=== PATIENT | male | born 1965 | race Caucasian/White ===

== ENCOUNTER 2016-06-04 06:20 | Inpatient (IN) ==
[2016-06-04] MEDS ORDERED: Clindamycin 900 MG/50 ML 900 MG/50 ML IV.SOLN IVPB ONE (06:36)
[2016-06-04] MEDS ORDERED: Chlorhexidine Rinse 15 ML MOUTHWASH MM ONE (06:37)
[2016-06-04] MEDS ORDERED: Nitroglycerin 25 MG/250 ML INFUS..BTL IVC ONE ×2 (06:43→10:58)
[2016-06-04] MEDS ORDERED: *HR* Norepinephrine 4 MG/4 ML VIAL IVC ONE (06:45)
[2016-06-04] MEDS ORDERED: *HR* Rocuronium Bromide 50 MG/5 ML VIAL ONE (06:45)
[2016-06-04] MEDS ORDERED: *HR* Phenylephrine 10 MG/ML VIAL ONE (06:45)
[2016-06-04] MEDS ORDERED: *HR* Etomidate 20 MG/10 ML AMPUL IVP ONE (06:46)
[2016-06-04] MEDS ORDERED: Famotidine 20 MG/2 ML VIAL ONE (06:46)
[2016-06-04] MEDS ORDERED: Protamine Sulfate 250 MG/25 ML VIAL IVP ONE (06:46)
[2016-06-04] MEDS ORDERED: Tranexamic Acid 1,000 MG/10 ML VIAL ONE ×2 (06:46→10:30)
[2016-06-04] MEDS ORDERED: Albuterol 2.5 MG/3 ML NEBULIZER ONE (06:51)
[2016-06-04] MEDS ORDERED: *HR* Midazolam HCl 5 MG/5 ML VIAL IVP ONE (06:53)
[2016-06-04] MEDS ORDERED: *HR* FentaNYL (PF) 1,000 MCG/20 ML VIAL ONE (06:53)
[2016-06-04] MEDS ORDERED: Verapamil 5 MG/2 ML VIAL ONE (06:55)
[2016-06-04] MEDS ORDERED: Albuterol 2.5 MG/3 ML NEBULIZER IH ONE (06:57)
[2016-06-04] MEDS ORDERED: Metoprolol XL (24 HR) Succ 25 MG TAB.ER.24H PO ONE (07:02)
--- NOTE | 2016-06-04 07:09 | History & Physical Report ---
Date of Encounter: 06/04/16 Time of Encounter: 07:07 24 Hour HP Update - Instructions Instructions: If the History and Physical is less than 30 days old and was completed prior to A.M. admission and or procedure and has NOT been updated on calendar day of procedure please complete this update prior to performing procedure. - Update Patient reports changes in Medical Condition: No Changes in assessment/condition: No Changes in Medication: No Preop tests/diagnostics Reviewed: Yes Pre-Op MRSA Screen: Negative Surgery Remains Indicated: Yes Consent for Planned Operative Procedure(s) Verified: Yes Additions to current History and Physical: Off Plavix for 6 days. Brief chest pain last PM - Pre-Operative Checklist Preoperative Checklist Indicated: Yes Prophylactic Antibiotic Ordered: Yes Home Medications Include Beta Roxanne: Yes Beta Roxanne Taken Today (Day of Surgery): Yes Beta Roxanne Taken Yesterday (Day Prior to Surgery): Yes Is VTE Prophylaxis Indicated?: Yes
--- NOTE | 2016-06-04 07:13 | Anesthesia Evaluation PreOp ---
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 (wet macular degeneration both eyes) Other Medical History: Diabetes Type II Anesthesia History: No Prior Anesthetic Complications (Has hadvascular surgery, wrist surgery and bilateral knee scopes) Alcohol Use: none Drug use: none Medications and Allergies Amitriptyline [Elavil] 50 mg PO HS 04/21/15 [History] Aspirin 81 mg PO DAILY 04/21/15 [History] Clopidogrel [Plavix] 75 mg PO DAILY 04/21/15 [History] Gabapentin [Neurontin] 800 mg PO TID 04/21/15 [History] Glimepiride [Amaryl] 4 mg PO 0800 04/21/15 [History] Lisinopril/Hydrochlorothiazide [Zestoretic 20-12.5 mg Tablet] 1 each PO DAILY [History] Meloxicam/Irr Cntr-Irr Cmb #2 [Comfort Pac-Meloxicam Kit] 15 mg MC DAILY [History] Metoprolol [Lopressor] 50 mg PO DAILY 04/21/15 [History] Omeprazole [Prilosec] 40 mg PO DAILY 04/21/15 [History] Oxycodone HCl/Acetaminophen [Percocet 10-325 mg Tablet] 1 tab PO Q6H PRN [History] Pravastatin Sodium [Pravachol] 40 mg PO DAILY 04/21/15 [History] PredniSONE 40 mg PO DAILY #10 tablet 08/17/15 [Rx] Diclofenac Sodium [Voltaren] 100 gm TP QID PRN 05/29/16 [History] Dulaglutide [Trulicity] 1.5 mg SQ QWEEK 05/29/16 [History] Tizanidine HCl [Zanaflex] 6 mg PO TID PRN 05/29/16 [History] Triamcinolone Acet 0.1% CRM [Kenalog] 1 appl TP ONCE PRN 05/29/16 [History] Allergies Penicillins [PCN] Allergy (Verified 08/17/15 07:43) Anaphylaxis - Meds/Allergy Pre-op Review Medications Reviewed: Yes Allergies Reviewed: Yes Beta Blockers on Current Med List: Yes Anesthesia Results - Labs Laboratory Tests 05/28/16 05/28/16 16:54 16:54 WBC 9.7 Hgb 13.1 Hct 38.4 Plt Count 235 Sodium 136 Potassium 4.5 Carbon Dioxide 26 BUN 19 - Imaging EKG: report reviewed Chest x-ray: report reviewed Additional studies: Cath shows severe 3 vessel disease. Cath shows EF 50% with mild and wall motion abnormalities Anesthesia Exam Selected Entries 06/04/16 06:43 Temperature 98.7 F Pulse Rate 86 Respiratory Rate 18 Blood Pressure 145/82 O2 Sat by Pulse Oximetry 98 Height: 69in Weight: 211lbs NPO (# of Hours): 8 Pain Scale: 0 Pain Scale Used: Numeric (1 - 10) - HEENT Pupil (Motor): EOMI Mallampati: I Teeth: Edentulous Oral Opening: Less than or equal to 3 - JUNIOR SYSTEMS ENGINEER LOC: Oriented JUNIOR SYSTEMS ENGINEER Motor: Normal RUE, Normal LUE, Normal RLE, Normal LLE, Normal Face JUNIOR SYSTEMS ENGINEER Sensory: Normal: RUE, LUE, RLE, LLE, Face - Cardiac Rhythm: Regular Murmur: None - Pulmonary Breath Sounds: bilateral Clear Respiratory Effort: Symmetrical - Additional Findings patient reports he can see. Eye exam not done but patient able to see consent form to sign. Anesthesia Assess/Plan ASA Score: 4 Modified Aspen Scale for Level of Consciousness: Cooperative, oriented, and tranquil Anesthetic Plan: General Autologous Blood: No Monitoring Plan: Standard Monitors, A-Line, PAC Recovery Plan: ICU (discussed risks of GA, lines and blood. Potential for ASHLEY and risks discussed. Questions answered. Agrees to proceed.)
[2016-06-04] MEDS ORDERED: Lidocaine 2% Syringe 100 MG/5 ML IV ONE (07:33)
[2016-06-04] MEDS ORDERED: Clindamycin 600 MG/50 ML IV.SOLN IVPB ONE (07:33)
[2016-06-04] MEDS ORDERED: Heparin 1,000 UNITS/500 mL NS 1,000 UNIT/500 ML IV.SOLN IVC ONE (07:33)
[2016-06-04] MEDS ORDERED: Albumin Human 25% 25 GM/100 ML IV.SOLN IV ONE (07:33)
[2016-06-04] MEDS ORDERED: Sodium Bicarbonate 50 MEQ/50 ML VIAL IVC ONE (07:33)
[2016-06-04] MEDS ORDERED: Mannitol 25% vial 12.5 GM/50 ML VIAL IVP ONE (07:33)
[2016-06-04] MEDS ORDERED: *HR* Phenylephrine 10 MG/ML VIAL IVC ONE (07:33)
[2016-06-04] MEDS ORDERED: D5% in Water 250 ML IV BAG IV ONE (07:33)
[2016-06-04] MEDS ORDERED: *HR* Heparin 10,000 UNIT/10 ML VIAL IV ONE (07:33)
[2016-06-04] MEDS ORDERED: *HR* Magnesium Sulfate 2 GM/50 ML PIGGYBACK IVPB ONE (07:33)
--- NOTE | 2016-06-04 08:47 | Anesthesia Procedures ---
Date of Encounter: 06/04/16 Time of Encounter: 07:55 Procedures: Anesthesia - Arterial Line Consent obtained: written consent Time out performed: Yes Sedation: Versed (mg): 2 Sedation: Fentanyl (mcg): 100 Supplemental Oxygen via Nasal Cannula (L/min): 2 Local Anesthetic: Lidocaine 1% Amount of Anesthetic used (mls): 1 Size (Gauge): 20 Length (inches): 5 Technique Used: sterile prep, guide wire technique, direct puncture technique Post-Procedure: line taped into place Patient tolerated procedure: well, no complications Complications: none Site: Radial L (attempt x 1) - Central Line Placement Right IJ Consent obtained: written consent Time out performed: Yes Patient placed on monitor/pulse ox: Yes prep: mask, gown, gloves Central line prep: Chlorhexidine scrub Ultrasound used for placement: Yes Technique: Seldinger Lumen Inserted: Introducer Post procedure: sutured in place, good blood return, all ports aspirated, flushed, capped, sterile dressing applied Patient tolerated procedure: well, no complications (attempt x 1, swan placed without issues, no arrythmias. Wedge at approx. 64cm)
[2016-06-04] MEDS: Ringers Solution, Lactated 1,000 ML IVC SCH ×2 (10:43→10:45)
[2016-06-04] MEDS ORDERED: Albumin Human 5% 50.0 GM/1,000 ML VIAL ONE (10:57)
[2016-06-04] MEDS ORDERED: Insulin Regular, Human 100 UNIT/ML IV PRN (12:01)
[2016-06-04] MEDS ORDERED: Norepinephrine 4 MG in D5% in Water 250 ML IVC SCH (12:01)
[2016-06-04] MEDS ORDERED: tiZANidine 4 MG TABLET PO PRN (12:01)
[2016-06-04] MEDS ORDERED: DICLOFENAC GEL TP PRN (12:01)
[2016-06-04] MEDS ORDERED: Ondansetron 4 MG/2 ML VIAL IVP PRN (12:01)
[2016-06-04] MEDS ORDERED: *HR* Dextrose 50 % in Water (Syg) 50 ML SYRINGE IVP PRN ×2 (12:01→14:14)
[2016-06-04] MEDS ORDERED: *HR* Promethazine 25 MG/ML VIAL IVP PRN (12:01)
[2016-06-04] MEDS ORDERED: Potassium Chloride 40 MEQ/200 ML BAG IVPB PRN (12:01)
[2016-06-04] MEDS ORDERED: Triamcinolone Acet 0.1% CRM 15 GM TUBE TP PRN (12:01)
[2016-06-04] MEDS ORDERED: Naloxone 0.4 MG/ML INJ IVP PRN (12:01)
[2016-06-04] MEDS ORDERED: niCARdipine 20 MG/200 ML MLS IVC SCH (12:01)
[2016-06-04 12:05] LABS: INR 1.5; Prothrombin Time 16.6 Seconds (9.4-12.1)
[2016-06-04] MEDS ORDERED: niCARdipine 40 MG/200 ML MLS IVC ONE (12:05)
[2016-06-04 12:07] LABS: ABG Base Excess 1.8 mEq/L (-2.0 to 3.0); ABG HCO3 29.1 mEQ/L (21-27); ABG Oxygen Saturation 98 % (95-98); ABG PCO2 62 mmHg (35-45); ABG PO2 111 mmHg (85-104); BUN/Creatinine Ratio 16 (6-26); Basophils % 0.1 %; Blood Urea Nitrogen 10 mg/dL (8-26); Carbon Dioxide 18 mEq/L (19-29); Chloride 120 mEq/L (98-109); Eosinophils % 0.4 %; Glucose 101 mg/dL (70-99); Hematocrit 23.3 % (37.5-50.1); Hemoglobin 7.6 g/dL (12.9-16.9); Immature Granulocytes % 0.4 % (0-4); Lymphocytes # 1.4 K/mcL (0.6-4.6); Lymphocytes % 14.5 %; Mean Corpuscular HGB Conc 32.6 g/dL (31.6-35.5); Mean Corpuscular Hemoglobin 29.7 pg (28.0-33.3); Mean Platelet Volume 8.8 fL (9.4-12.4); Monocytes # 0.5 K/mcL (0.0-1.3); Osmolality,Calculated 313 (280-300); Platelet Count 105 K/mcL (140-400); Potassium 2.7 mEq/L (3.5-4.5); Red Blood Count 2.56 M/mcL (4.19-5.50); Red Cell Distribution Width 12.4 % (11.5-14.5); Segmented Neutrophils % 79.6 %; Sodium 152 mEq/L (136-145); eGFR For African Americans > 60 (> 60); eGFR For Non-African Americans > 60 (> 60)
[2016-06-04 12:10] LABS: Calcium 5.9 mg/dL (8.6-10.8)
[2016-06-04 12:12] LABS: ABG PH 7.28 pH Units (7.32-7.45); Activated Partial Thrombo Time > 360.0 Seconds (26.0-36.0); Neutrophils # 7.5 K/mcL (1.6-8.9)
--- NOTE | 2016-06-04 12:12 | Operative Note ---
Date of procedure: 06/04/16 Procedure in Detail: Preoperative diagnosis. Coronary artery disease. Postoperative diagnosis. Same. Procedures. Coronary artery bypass grafting 2 with the left internal mammary artery to the LAD and the aorta to the obtuse marginal branch of the circumflex with saphenous vein. Surgeon. Dr. Moe Casillas. Asst. Flavio Schofield. Anesthesia. Dr. Ike Whittington. Patient is a 50-year-old gentleman who does have a history of smoking and smoked a cigarette on the way to the hospital today. He was seen last week with coronary artery disease and was referred for surgery. He was on Plavix and this was stopped for 6 days. We did not want to wait longer as he did have a tight 99% circumflex lesion. He was brought to the OR where he underwent a general anesthetic and was prepped and draped in standard fashion. The right greater saphenous vein was harvested from the right knee to the right mid thigh. This was done with 2 small incisions using the scope. These incisions were subsequently closed using a deep layer of 0 Vicryl and a 2-0 Vicryl subcuticular stitch. Standard median sternotomy was performed. Mammary retractor was inserted and the left internal mammary artery was harvested in standard fashion using the Bovie electrocoagulation. It was an adequate vessel with adequate pulse and flow. Following this, the mammary retractor was removed and the standard sternal 4th grade teacher was inserted. Pericardium was opened in the midline and suspended with 2-0 silk stay sutures. Double purse string of 20 Surgilon was placed in the aorta for the aortic cannulation site. A pursestring of 20 Surgilon was placed in the right atrial appendage for venous uptake. The patient was heparinized. The aorta was cannulated without difficulty. Two-stage venous uptake cannula was inserted through the right atrial appendage without difficulty. Purstring of 3-0 silk was placed in the aorta and the cardioplegia needle was inserted through here. This was also uses of active and passive aortic vent. The patient was placed on cardiopulmonary bypass and cooled to 35.5. At this point the aorta was crossclamped. A liter of antegrade cardioplegia was given. Topical cooling with iced saline slush was also done. Attention was first turned to the circumflex. The obtuse marginal branch was dissected free with the Ponce blade and opened with a Ponce blade and the Pierce scissors. This had illuminable 1/2 mm and it was intramyocardial. Proximally it had severe diffuse disease. A standard end-to -side anastomosis was constructed using the saphenous vein and a 7-0 Prolene. When this was completed, an additional dose of antegrade cardioplegia was given along with topical cooling. Mammary pedicle was harvested. Tonsil clamp was placed distally and was divided with Metzenbaum scissors. This line was tied with 2-0 silk suture. The proximal end was trimmed and brought into the wound. The LAD was dissected free with the Ponce blade and opened with the Ponce blade and the Pierce scissors. This had a lumen of 1/2 mm with mild to moderate diffuse disease. A standard end-to-side anastomosis was constructed using the mammary artery and a 7-0 Prolene. When this was completed. Bulldog clamp was removed. There was some oozing from the lateral side of the anastomosis. This was controlled with FloSeal and an additional suture of 7-0 Prolene. After this the hemostasis was good. Pedicles tacked the surface of heart using 2 interrupted 5-0 silk sutures. Cross-clamp was removed and rewarming was begun. Total cross-clamp time was 36 minutes. Side-biting clamp was placed on the aorta and the cardioplegia needle was removed. A hole was made in the aorta using the Ponce blade and the 4.0 mm aortic punch. A standard proximal anastomosis was constructed using the saphenous vein and a 5-0 Prolene. When this is completed, the side-biting clamp was removed. The graft was de-aired using #25-gauge needle and the previously placed bulldog clamp was removed. Distal anastomoses were inspected and found to be hemostatic. The proximal anastomosis was marked with a marker from a Ray-Naeem sponge. A pair of ventricular pacing wires were left. A total of 3 chest tubes were left. A 32 angle chest tube in the left pleural space. A 32 right angle chest tube in the pericardial well. A 40 mediastinal chest tube. The patient was weaned from bypass requiring no pressors for support. He was decannulated and protamine was given. Hemostasis was good and the hemodynamics were good. Pericardium was left open. Sternum was closed with #7 sternal wires in simple [id number] fashion. Fascia was run with #1 Vicryl. Subcutaneous tissues with a 2-0 Vicryl. Skin was closed with a 3-0 Vicryl subcuticular stitch. The patient tolerated the procedure well and was returned intensive care unit in satisfactory and stable condition. Total bypass time 60 minutes. Total cross-clamp time 36 minutes. He been cooled to 35.5.
[2016-06-04 12:14] LABS: Heparin anti-factor XA UFH 0.67 IU/mL (0.30-0.70)
[2016-06-04 12:42] LABS: Basophils % 0.2 %; Eosinophils % 0.2 %; Hematocrit 28.4 % (37.5-50.1); Immature Granulocytes % 0.6 % (0-4); Lymphocytes # 1.5 K/mcL (0.6-4.6); Lymphocytes % 12.7 %; Mean Corpuscular HGB Conc 32.7 g/dL (31.6-35.5); Mean Corpuscular Hemoglobin 29.6 pg (28.0-33.3); Mean Corpuscular Volume 90.4 fL (83.0-100.0); Mean Platelet Volume 8.7 fL (9.4-12.4); Monocytes # 0.6 K/mcL (0.0-1.3); Monocytes % 5.5 %; Neutrophils # 9.3 K/mcL (1.6-8.9); Platelet Count 124 K/mcL (140-400); Red Blood Count 3.14 M/mcL (4.19-5.50); Red Cell Distribution Width 12.5 % (11.5-14.5); Segmented Neutrophils % 80.8 %
[2016-06-04] MEDS: *HR* OxyCODONE/APAP 10/325 TABLET PO PRN ×3 (12:42→23:48)
[2016-06-04] MEDS: Nitroglycerin 25 MG/250 ML INFUS..BTL IVC SCH (12:44)
[2016-06-04] MEDS: 0.9 % Sodium Chloride 1,000 ML IVC SCH (12:44)
[2016-06-04 12:52] LABS: Hemoglobin 9.3 g/dL (12.9-16.9)
[2016-06-04 12:53] LABS: BUN/Creatinine Ratio 15 (6-26); Blood Urea Nitrogen 13 mg/dL (8-26); Calcium 8.5 mg/dL (8.6-10.8); Carbon Dioxide 24 mEq/L (19-29); Chloride 108 mEq/L (98-109); Glucose 194 mg/dL (70-99); Osmolality,Calculated 295 (280-300); Potassium 4.3 mEq/L (3.5-4.5); eGFR For African Americans > 60 (> 60); eGFR For Non-African Americans > 60 (> 60)
[2016-06-04 12:56] LABS: Sodium 140 mEq/L (136-145)
[2016-06-04 13:06] LABS: INR 1.3
[2016-06-04 13:09] LABS: Activated Partial Thrombo Time 39.2 Seconds (26.0-36.0)
[2016-06-04 13:11] LABS: Prothrombin Time 13.8 Seconds (9.4-12.1)
[2016-06-04] MEDS: *HR* HYDROmorphone 2 MG/ML SYRINGE IVP PRN ×2 (13:51→21:30)
[2016-06-04] MEDS ORDERED: Insulin Human Regular 100 UNIT in 0.9 % Sodium Chloride 100 ML IVC SCH (14:15)
[2016-06-04 16:32] LABS: Basophils % 0.2 %; Eosinophils # 0.1 K/mcL (0.0-0.6); Eosinophils % 0.4 %; Hematocrit 30.8 % (37.5-50.1); Hemoglobin 10.3 g/dL (12.9-16.9); Immature Granulocytes % 0.7 % (0-4); Lymphocytes # 0.7 K/mcL (0.6-4.6); Lymphocytes % 5.5 %; Mean Corpuscular HGB Conc 33.4 g/dL (31.6-35.5); Mean Corpuscular Hemoglobin 29.9 pg (28.0-33.3); Mean Corpuscular Volume 89.3 fL (83.0-100.0); Mean Platelet Volume 9.2 fL (9.4-12.4); Neutrophils # 10.8 K/mcL (1.6-8.9); Platelet Count 174 K/mcL (140-400); Red Blood Count 3.45 M/mcL (4.19-5.50); Red Cell Distribution Width 12.6 % (11.5-14.5); Segmented Neutrophils % 85.2 %
[2016-06-04 16:34] LABS: ABG Base Excess 1.4 mEq/L (-2.0 to 3.0); ABG HCO3 26.6 mEQ/L (21-27); ABG Oxygen Saturation 99 % (95-98); ABG PCO2 44 mmHg (35-45); ABG PH 7.39 pH Units (7.32-7.45); ABG PO2 120 mmHg (85-104)
[2016-06-04 16:37] LABS: Blood Gas FiO2 40 %
[2016-06-04 16:39] LABS: INR 1.2
[2016-06-04 16:42] LABS: Activated Partial Thrombo Time 73.5 Seconds (26.0-36.0)
[2016-06-04 16:45] LABS: BUN/Creatinine Ratio 14 (6-26); Blood Urea Nitrogen 16 mg/dL (8-26); Calcium 8.5 mg/dL (8.6-10.8); Carbon Dioxide 23 mEq/L (19-29); Chloride 110 mEq/L (98-109); Glucose 186 mg/dL (70-99); Osmolality,Calculated 296 (280-300); Potassium 4.7 mEq/L (3.5-4.5); Sodium 140 mEq/L (136-145); eGFR For African Americans > 60 (> 60); eGFR For Non-African Americans > 60 (> 60)
[2016-06-04] MEDS: Gabapentin 400 MG CAPSULE PO SCH ×2 (17:17→21:45)
[2016-06-04] MEDS: Clindamycin 900 MG/50 ML 900 MG/50 ML IV.SOLN IVPB SCH (17:17)
[2016-06-04 20:12] LABS: ABG Base Excess 0.8 mEq/L (-2.0 to 3.0); ABG HCO3 25.3 mEQ/L (21-27); ABG Oxygen Saturation 97 % (95-98); ABG PCO2 39 mmHg (35-45); ABG PO2 92 mmHg (85-104); ABG TCO2 26.5 mEq/L (20-26)
[2016-06-04 20:18] LABS: ABG PH 7.42 pH Units (7.32-7.45); Blood Gas FiO2 30 %; Blood Gas PEEP 5 cm H2O; Blood Gas Respiration Rate 12; Blood Gas VT 800 cc
[2016-06-04] MEDS ORDERED: Aspirin 81 MG TAB.CHEW PO SCH (21:00)
[2016-06-04 21:28] LABS: ABG Base Excess 1.3 mEq/L (-2.0 to 3.0); ABG HCO3 25.9 mEQ/L (21-27); ABG Oxygen Saturation 96 % (95-98); ABG PCO2 40 mmHg (35-45); ABG PO2 82 mmHg (85-104); ABG TCO2 27.1 mEq/L (20-26); Blood Gas FiO2 30 %
[2016-06-04 21:29] LABS: ABG PH 7.42 pH Units (7.32-7.45); Blood Gas PEEP 5 cm H2O
[2016-06-04 22:47] LABS: ABG Base Excess -1.2 mEq/L (-2.0 to 3.0); ABG HCO3 24.3 mEQ/L (21-27); ABG Oxygen Saturation 92 % (95-98); ABG PCO2 43 mmHg (35-45); ABG PO2 66 mmHg (85-104); ABG TCO2 25.6 mEq/L (20-26)
[2016-06-04 22:48] LABS: Blood Gas FiO2 28 %
[2016-06-04 22:49] LABS: ABG PH 7.36 pH Units (7.32-7.45)
[2016-06-04] MEDS: Chlorhexidine Rinse 15 ML MOUTHWASH MM SCH (23:45)
[2016-06-05] MEDS: Clindamycin 900 MG/50 ML 900 MG/50 ML IV.SOLN IVPB SCH (00:06)
[2016-06-05] MEDS: 0.9 % Sodium Chloride 1,000 ML IVC SCH (02:05)
[2016-06-05] MEDS: *HR* HYDROmorphone 2 MG/ML SYRINGE IVP PRN ×3 (02:58→23:59)
[2016-06-05 04:16] LABS: Basophils % 0.2 %; Eosinophils % 0.1 %; Hematocrit 29.6 % (37.5-50.1); Hemoglobin 9.7 g/dL (12.9-16.9); Immature Granulocytes % 0.4 % (0-4); Lymphocytes # 0.7 K/mcL (0.6-4.6); Lymphocytes % 5.8 %; Mean Corpuscular HGB Conc 32.8 g/dL (31.6-35.5); Mean Corpuscular Hemoglobin 29.6 pg (28.0-33.3); Mean Corpuscular Volume 90.2 fL (83.0-100.0); Mean Platelet Volume 9.3 fL (9.4-12.4); Monocytes % 8.3 %; Neutrophils # 10.7 K/mcL (1.6-8.9); Platelet Count 170 K/mcL (140-400); Red Blood Count 3.28 M/mcL (4.19-5.50); Red Cell Distribution Width 12.7 % (11.5-14.5); Segmented Neutrophils % 85.2 %
[2016-06-05 04:18] LABS: Monocytes # 1.1 K/mcL (0.0-1.3)
[2016-06-05 04:28] LABS: BUN/Creatinine Ratio 18 (6-26); Blood Urea Nitrogen 21 mg/dL (8-26); Calcium 8.4 mg/dL (8.6-10.8); Carbon Dioxide 22 mEq/L (19-29); Chloride 109 mEq/L (98-109); Glucose 145 mg/dL (70-99); INR 1.3; Magnesium 2.3 mg/dL (1.6-2.6); Osmolality,Calculated 290 (280-300); Potassium 4.7 mEq/L (3.5-4.5); eGFR For African Americans > 60 (> 60); eGFR For Non-African Americans > 60 (> 60)
[2016-06-05 04:33] LABS: Activated Partial Thrombo Time 34.8 Seconds (26.0-36.0)
[2016-06-05 04:35] LABS: Prothrombin Time 14.1 Seconds (9.4-12.1)
[2016-06-05 04:39] LABS: Sodium 137 mEq/L (136-145)
[2016-06-05] MEDS: *HR* OxyCODONE/APAP 10/325 TABLET PO PRN ×3 (06:07→21:05)
--- NOTE | 2016-06-05 07:21 | Cardiothoracic Progress Note ---
Date of Encounter: 06/05/16 Time of Encounter: 07:19 - Assessment and plan (1) Coronary artery disease Current Visit: No Status: Acute The assessment and plan as outlined above was discussed with the patient and/or family members who expressed understanding and agreement. All questions were answered. The patient is doing well. We will leave the chest tubes is a drained over 200 mL in the last shift. We will transfer him to the floor. We will discontinue his [place]oselyn catheter, arterial line, IV fluids and Mullins catheter. - Subjective Interval history: The patient complains of postoperative pain. He states that he feels sore all over. Vital Signs, Last 4 Hours Pulse Resp BP Pulse Ox 06/05/16 07:00 100 26 144/65 95 06/05/16 06:00 98 28 138/67 91 L 06/05/16 05:00 96 24 109/54 94 L 06/05/16 04:35 16 105/62 92 L 06/05/16 04:00 92 22 111/62 94 L Oxgyen Flow Rate Oxygen Flow Rate (LPM) 2.5 Clinical Data, last 8 Hours Output, Chest Tube Drainage 4 Amount [Mediastinal #3] Output, Chest Tube Drainage 12 Amount [Mediastinal #3] Output, Chest Tube Drainage 5 Amount [Mediastinal #3] Output, Chest Tube Drainage 0 Amount [Mediastinal #3] Output, Chest Tube Drainage 4 Amount [Mediastinal #3] Output, Chest Tube Drainage 16 Amount [Mediastinal #3] Output, Chest Tube Drainage 5 Amount [Mediastinal #3] Output, Chest Tube Drainage 5 Amount [Mediastinal #3] Output, Chest Tube Drainage 0 Amount [Mediastinal #2] Output, Chest Tube Drainage 0 Amount [Mediastinal #2] Output, Chest Tube Drainage 0 Amount [Mediastinal #2] Output, Chest Tube Drainage 10 Amount [Mediastinal #2] Output, Chest Tube Drainage 10 Amount [Mediastinal #2] Output, Chest Tube Drainage 30 Amount [Mediastinal #2] Output, Chest Tube Drainage 10 Amount [Mediastinal #2] Output, Chest Tube Drainage 20 Amount [Mediastinal #2] Output, Chest Tube Drainage 10 Amount [Mediastinal #1] Output, Chest Tube Drainage 20 Amount [Mediastinal #1] Output, Chest Tube Drainage 20 Amount [Mediastinal #1] Output, Chest Tube Drainage 0 Amount [Mediastinal #1] Output, Chest Tube Drainage 10 Amount [Mediastinal #1] Output, Chest Tube Drainage 20 Amount [Mediastinal #1] Output, Chest Tube Drainage 0 Amount [Mediastinal #1] Output, Chest Tube Drainage 10 Amount [Mediastinal #1] Weight 06/03/16 06/04/16 06/05/16 23:59 23:59 23:59 Weight 97.522 kg Lungs are clear to percussion and auscultation. Heart is in a normal sinus rhythm. All incisions are healing well without signs of infection and the sternum is stable. - Labs 06/05/16 04:00 06/05/16 04:00 Lab Results, Last 24 hours 06/04/16 06/04/16 06/04/16 11:30 11:30 11:30 WBC 9.4 Hgb 7.6 L D Hct 23.3 L Plt Count 105 L D INR 1.5 APTT > 360.0 H* D Sodium 152 H Potassium 2.7 L Chloride 120 H Carbon Dioxide 18 L BUN 10 Creatinine 0.61 L Glucose 101 H Calcium 5.9 L* Magnesium 2.0 06/04/16 06/04/16 06/04/16 12:35 12:35 12:35 WBC 11.5 H Hgb 9.3 L D Hct 28.4 L Plt Count 124 L INR 1.3 APTT 39.2 H D Sodium 140 D Potassium 4.3 D Chloride 108 Carbon Dioxide 24 BUN 13 Creatinine 0.87 Glucose 194 H Calcium 8.5 L D Magnesium 06/04/16 06/04/16 06/04/16 16:27 16:27 16:27 WBC 12.7 H Hgb 10.3 L Hct 30.8 L Plt Count 174 INR 1.2 APTT 73.5 H D Sodium 140 Potassium 4.7 H Chloride 110 H Carbon Dioxide 23 BUN 16 Creatinine 1.16 Glucose 186 H Calcium 8.5 L Magnesium 06/05/16 06/05/16 06/05/16 04:00 04:00 04:00 WBC 12.6 H Hgb 9.7 L Hct 29.6 L Plt Count 170 INR 1.3 APTT 34.8 D Sodium 137 Potassium 4.7 H Chloride 109 Carbon Dioxide 22 BUN 21 Creatinine 1.17 Glucose 145 H Calcium 8.4 L Magnesium 2.3 - VTE Documentation of Mechanical Device: Intermittent pneumatic compression device Consult Discharge Plan - Plan Referrals: Micheal Silver MD [Primary Care Provider] -
[2016-06-05] MEDS ORDERED: *HR* Glimepiride 2 MG TABLET PO SCH (07:30)
[2016-06-05] MEDS ORDERED: Dextrose Gel 15 GM PO PRN ×4 (07:32→11:40)
[2016-06-05] MEDS ORDERED: *HR* Dextrose 50 % in Water (Syg) 50 ML SYRINGE IVP PRN ×4 (07:32→11:40)
[2016-06-05] MEDS ORDERED: D5% in Water 1,000 ML IV PRN ×2 (07:32→11:40)
[2016-06-05] MEDS: Chlorhexidine Rinse 15 ML MOUTHWASH MM SCH (08:05)
[2016-06-05] MEDS: Gabapentin 400 MG CAPSULE PO SCH ×3 (08:08→21:04)
--- NOTE | 2016-06-05 08:16 | Anesthesia Evaluation Post Op ---
Date of Encounter: 06/05/16 Time of Encounter: 08:14 - Vital Signs Vital Signs: Selected Entries 06/05/16 07:00 06/05/16 07:54 Temperature 98.6 F Pulse Rate 100 Respiratory Rate 26 Blood Pressure 144/65 O2 Sat by Pulse Oximetry 95 - Lungs Lungs: Clear Ascult./Percussion - Airway Airway: Non-obstructed - Cardiovascular Regular Rate - Mental Status Mental Status: Alert & Oriented, Answers Appropriately - Pain Pain Scale: 3 Pain Scale used: Numeric (1 - 10) - Nausea Vomiting Nausea Vomiting: Not Present - Hydration Hydration: Tolerates oral liquids (Patient POD#1 from CABG. No appaarent anesthestic issues. Lines and howe to be discontinued today. Transfer per Dr Casillas's discretion.), Howe catheter
--- NOTE | 2016-06-05 09:58 | Electrocardiograph Report ---
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
[2016-06-05 11:07] LABS: ABG Base Excess 0.7 mEq/L (-2.0 to 3.0); ABG Glucose 203 mg/dL (60-95); ABG Hematocrit 36 % (35-51); ABG Ionized Calcium 1.23 mmol/L (1.15-1.35); ABG Oxygen Saturation 100 % (95-98); ABG PCO2 57 mmHg (35-45); ABG PO2 230 mmHg (85-104); ABG TCO2 29.7 mEq/L (20-26)
[2016-06-05 11:09] LABS: ABG Base Excess -4.9 mEq/L (-2.0 to 3.0); ABG Glucose 136 mg/dL (60-95); ABG HCO3 21.2 mEQ/L (21-27); ABG Hematocrit 24 % (35-51); ABG Ionized Calcium 0.83 mmol/L (1.15-1.35); ABG Oxygen Saturation 97 % (95-98); ABG PCO2 43 mmHg (35-45); ABG PO2 96 mmHg (85-104); ABG TCO2 22.5 mEq/L (20-26)
[2016-06-05 11:09] LABS: ABG Base Excess -0.2 mEq/L (-2.0 to 3.0); ABG Glucose 202 mg/dL (60-95); ABG HCO3 26.2 mEQ/L (21-27); ABG Hematocrit 22 % (35-51); ABG Ionized Calcium 0.99 mmol/L (1.15-1.35); ABG Oxygen Saturation 100 % (95-98); ABG PCO2 52 mmHg (35-45); ABG PH 7.31 pH Units (7.32-7.45); ABG PO2 229 mmHg (85-104); ABG TCO2 27.8 mEq/L (20-26)
[2016-06-05 11:10] LABS: ABG Base Excess 1.4 mEq/L (-2.0 to 3.0); ABG Glucose 243 mg/dL (60-95); ABG HCO3 26.6 mEQ/L (21-27); ABG Hematocrit 24 % (35-51); ABG Ionized Calcium 0.94 mmol/L (1.15-1.35); ABG Oxygen Saturation 100 % (95-98); ABG PCO2 44 mmHg (35-45); ABG PH 7.39 pH Units (7.32-7.45); ABG PO2 252 mmHg (85-104)
[2016-06-05 11:11] LABS: ABG Base Excess 1.3 mEq/L (-2.0 to 3.0); ABG Glucose 178 mg/dL (60-95); ABG HCO3 26.6 mEQ/L (21-27); ABG Hematocrit 26 % (35-51); ABG Ionized Calcium 1.03 mmol/L (1.15-1.35); ABG Oxygen Saturation 99 % (95-98); ABG PCO2 45 mmHg (35-45); ABG PH 7.38 pH Units (7.32-7.45); ABG PO2 144 mmHg (85-104)
[2016-06-05] MEDS ORDERED: Insulin LISPRO 300 UNITS/3 ML VIAL SQ SCH ×2 (11:30→21:00)
[2016-06-05] MEDS ORDERED: *HR* Promethazine 25 MG/ML VIAL IVP PRN (11:40)
[2016-06-05] MEDS ORDERED: Ondansetron 4 MG/2 ML VIAL IVP PRN (11:40)
[2016-06-05] MEDS ORDERED: tiZANidine 4 MG TABLET PO PRN (11:40)
[2016-06-05] MEDS ORDERED: Insulin Regular, Human 100 UNIT/ML IV PRN (11:40)
[2016-06-05] MEDS ORDERED: DICLOFENAC GEL TP PRN (11:40)
[2016-06-05] MEDS ORDERED: Naloxone 0.4 MG/ML INJ IVP PRN (11:40)
[2016-06-05] MEDS: Nitroglycerin 25 MG/250 ML INFUS..BTL IVC SCH (11:55)
[2016-06-05] MEDS: *HR* Heparin 5,000 UNIT/ML VIAL SQ SCH (17:40)
[2016-06-05] MEDS: Insulin LISPRO 300 UNITS/3 ML VIAL SQ SCH ×2 (17:40→21:33)
[2016-06-05] MEDS: *HR* Glimepiride 2 MG TABLET PO SCH (17:40)
[2016-06-05] MEDS: Aspirin 81 MG TAB.CHEW PO SCH (21:05)
[2016-06-05] MEDS: Insulin DETEMIR 100 UNIT/ML X5UNITS SQ SCH (21:56)
[2016-06-06] MEDS: *HR* Heparin 5,000 UNIT/ML VIAL SQ SCH ×2 (04:34→18:18)
[2016-06-06] MEDS: *HR* OxyCODONE/APAP 10/325 TABLET PO PRN ×3 (04:34→18:17)
[2016-06-06 05:26] LABS: Basophils % 0.1 %; Hematocrit 28.9 % (37.5-50.1); Hemoglobin 9.6 g/dL (12.9-16.9); Immature Granulocytes % 0.8 % (0-4); Lymphocytes # 0.7 K/mcL (0.6-4.6); Lymphocytes % 4.5 %; Mean Corpuscular HGB Conc 33.2 g/dL (31.6-35.5); Mean Corpuscular Hemoglobin 30.2 pg (28.0-33.3); Mean Corpuscular Volume 90.9 fL (83.0-100.0); Mean Platelet Volume 10.1 fL (9.4-12.4); Monocytes # 1.2 K/mcL (0.0-1.3); Monocytes % 7.4 %; Neutrophils # 13.8 K/mcL (1.6-8.9); Platelet Count 185 K/mcL (140-400); Red Blood Count 3.18 M/mcL (4.19-5.50); Red Cell Distribution Width 12.8 % (11.5-14.5); Segmented Neutrophils % 87.2 %
[2016-06-06] MEDS: Gabapentin 400 MG CAPSULE PO SCH ×3 (08:37→21:42)
[2016-06-06] MEDS: Insulin LISPRO 300 UNITS/3 ML VIAL SQ SCH ×4 (08:38→21:43)
[2016-06-06] MEDS: *HR* HYDROmorphone 2 MG/ML SYRINGE IVP PRN (08:39)
[2016-06-06] MEDS: *HR* Glimepiride 2 MG TABLET PO SCH ×2 (08:40→15:47)
--- NOTE | 2016-06-06 10:01 | Cardiothoracic Progress Note ---
Date of Encounter: 06/06/16 Time of Encounter: 09:59 - Assessment and plan (1) Coronary artery disease Current Visit: No Status: Acute The patient is recovering well from his CABG2. He remains him in diameter stable and has no complaints. The chest tubes had minimal drainage were removed this morning. He will begin ambulating in the hallways later today. The assessment and plan as outlined above was discussed with the patient and/or family members who expressed understanding and agreement. All questions were answered. Qualifiers: Coronary Disease-Associated Artery/Lesion type: [place] artery [place] vs. transplanted heart: [place] heart Associated angina: with stable angina Qualified Code(s): I25.118 - Atherosclerotic heart disease of [place] coronary artery with other forms of angina pectoris - Subjective Procedure(s) Performed: POD#2 S/P CABG2 Interval history: The patient is sitting comfortably in a chair at the bedside. He is eating breakfast and has no complaints. Vital Signs, Last 4 Hours Temp Pulse Resp BP Pulse Ox 06/06/16 07:41 98.8 F 105 40 118/81 94 L Oxgyen Flow Rate Oxygen Flow Rate (LPM) 3 Clinical Data, last 8 Hours Output, Chest Tube Drainage 0 Amount [Mediastinal #3] Output, Chest Tube Drainage 40 Amount [Mediastinal #3] Output, Chest Tube Drainage 0 Amount [Mediastinal #2] Output, Chest Tube Drainage 20 Amount [Mediastinal #2] Output, Chest Tube Drainage 10 Amount [Mediastinal #1] Output, Chest Tube Drainage 10 Amount [Mediastinal #1] Output, Urine Amount 450 Weight 06/04/16 06/05/16 06/06/16 23:59 23:59 23:59 Weight 97.522 kg 98.9 kg - Physical Examination General: Conversant, No Apparent Distress Neck: No JVD, Normal carotid pulses Cardiac: Reg Rate and Rhythm, Normal S1 and S2, No Murmur Incision: No signs of infection, Dry/intact dressing Sternum: Stable Chest tubes: Minimal drainage Pacing Wires: In place Lungs: Normal Breath Sounds, No Wheeze, Rales, Rhonchi Neuro: Alert and responsive, No focal deficits noted Vascular: Normal capillary refill Musculoskeletal: No Chest Wall Tenderness Extremities: No Clubbing, No Cyanosis, No Edema - Labs 06/06/16 05:05 06/05/16 04:00 Lab Results, Last 24 hours 06/06/16 05:05 WBC 15.8 H Hgb 9.6 L Hct 28.9 L Plt Count 185 - VTE Documentation of Mechanical Device: Graduated compression elastic hosiery Consult Discharge Plan - Plan Referrals: Sujit Borjas CNP [Advanced Practice Nurse] - 07/01/16 1:00 pm Micheal Silver MD [Primary Care Provider] - () Jelly Ren CNP [Advanced Practice Nurse] - 06/17/16 9:00 am Moe Casillas MD [Partnered Physician] - 07/04/16 1:30 pm
[2016-06-06] MEDS: Triamcinolone Acet 0.1% CRM 15 GM TUBE TP PRN (15:18)
[2016-06-06] MEDS: Aspirin 81 MG TAB.CHEW PO SCH (21:41)
[2016-06-06] MEDS: Insulin DETEMIR 100 UNIT/ML X5UNITS SQ SCH (21:42)
[2016-06-07] MEDS: *HR* OxyCODONE/APAP 10/325 TABLET PO PRN ×3 (03:50→17:33)
[2016-06-07] MEDS: *HR* Heparin 5,000 UNIT/ML VIAL SQ SCH ×2 (06:01→17:03)
--- NOTE | 2016-06-07 07:25 | Cardiothoracic Progress Note ---
Date of Encounter: 06/07/16 Time of Encounter: 07:23 - Assessment and plan (1) Coronary artery disease Current Visit: No Status: Acute The patient is recovering well from his CABG2. He began ambulating in the hallways yesterday without difficulty. The assessment and plan as outlined above was discussed with the patient and/or family members who expressed understanding and agreement. All questions were answered. Qualifiers: Coronary Disease-Associated Artery/Lesion type: [place] artery [place] vs. transplanted heart: [place] heart Associated angina: with stable angina Qualified Code(s): I25.118 - Atherosclerotic heart disease of [place] coronary artery with other forms of angina pectoris - Subjective Procedure(s) Performed: POD#3 S/P CABG2 Interval history: The patient is resting comfortably in his hospital bed. He was able to ambulate yesterday without difficulty. Vital Signs, Last 4 Hours Temp Pulse Resp BP Pulse Ox 06/07/16 04:19 18 97 06/07/16 03:45 98.8 F 97 21 112/69 96 Oxgyen Flow Rate Oxygen Flow Rate (LPM) 1 Weight 06/05/16 06/06/16 06/07/16 23:59 23:59 23:59 Weight 98.9 kg 100.5 kg - Physical Examination General: Conversant, No Apparent Distress Neck: No JVD, Normal carotid pulses Cardiac: Reg Rate and Rhythm, Normal S1 and S2, No Murmur Incision: No signs of infection, Dry/intact dressing Sternum: Stable Pacing Wires: In place Lungs: Normal Breath Sounds, No Wheeze, Rales, Rhonchi Neuro: Alert and responsive, No focal deficits noted Vascular: Normal capillary refill Musculoskeletal: No Chest Wall Tenderness Extremities: No Clubbing, No Cyanosis, No Edema - Labs 06/06/16 05:05 06/05/16 04:00 - VTE Documentation of Mechanical Device: Graduated compression elastic hosiery Consult Discharge Plan - Plan Referrals: Sujit Borjas CNP [Advanced Practice Nurse] - 07/01/16 1:00 pm Micheal Silver MD [Primary Care Provider] - () Jelly Ren CNP [Advanced Practice Nurse] - 06/17/16 9:00 am Moe Casillas MD [Partnered Physician] - 07/04/16 1:30 pm
[2016-06-07] MEDS: Gabapentin 400 MG CAPSULE PO SCH ×3 (07:50→20:39)
[2016-06-07] MEDS: *HR* HYDROmorphone 2 MG/ML SYRINGE IVP PRN (07:51)
[2016-06-07] MEDS: *HR* Glimepiride 2 MG TABLET PO SCH ×2 (07:51→16:17)
[2016-06-07] MEDS: Insulin LISPRO 300 UNITS/3 ML VIAL SQ SCH ×4 (07:52→20:40)
[2016-06-07] MEDS: Triamcinolone Acet 0.1% CRM 15 GM TUBE TP PRN (11:28)
[2016-06-07] MEDS: Nicotine 21 MG PATCH.TD24 TD SCH (17:03)
[2016-06-07] MEDS: Insulin DETEMIR 100 UNIT/ML X5UNITS SQ SCH (20:39)
[2016-06-07] MEDS: Aspirin 81 MG TAB.CHEW PO SCH (20:39)
[2016-06-08] MEDS: *HR* HYDROmorphone 2 MG/ML SYRINGE IVP PRN (04:35)
[2016-06-08] MEDS: *HR* Heparin 5,000 UNIT/ML VIAL SQ SCH ×2 (04:35→16:41)
[2016-06-08] MEDS: *HR* OxyCODONE/APAP 10/325 TABLET PO PRN ×4 (08:29→20:58)
[2016-06-08] MEDS: *HR* Glimepiride 2 MG TABLET PO SCH ×2 (08:30→16:41)
[2016-06-08] MEDS: Gabapentin 400 MG CAPSULE PO SCH ×3 (08:30→20:58)
[2016-06-08] MEDS: Insulin LISPRO 300 UNITS/3 ML VIAL SQ SCH ×4 (08:31→20:01)
[2016-06-08] MEDS: Nicotine 21 MG PATCH.TD24 TD SCH (08:31)
--- NOTE | 2016-06-08 08:40 | Cardiothoracic Progress Note ---
Date of Encounter: 06/08/16 Time of Encounter: 08:39 - Assessment and plan (1) Coronary artery disease Current Visit: No Status: Acute The patient is recovering well from his CABG2. He began ambulating in the hallways yesterday without difficulty. The assessment and plan as outlined above was discussed with the patient and/or family members who expressed understanding and agreement. All questions were answered. Qualifiers: Coronary Disease-Associated Artery/Lesion type: [place] artery [place] vs. transplanted heart: [place] heart Associated angina: with stable angina Qualified Code(s): I25.118 - Atherosclerotic heart disease of [place] coronary artery with other forms of angina pectoris - Subjective Procedure(s) Performed: POD#4 S/P CABG2 Interval history: The patient is resting comfortably in his hospital bed. He was able to ambulate in the hallways twice yesterday without difficulty. Vital Signs, Last 4 Hours Temp Pulse Resp BP Pulse Ox 06/08/16 06:24 98.0 F 105 24 113/95 92 L 06/08/16 04:44 23 123/83 91 L Oxgyen Flow Rate Oxygen Flow Rate (LPM) 1 Clinical Data, last 8 Hours Output, Urine Amount 800 Weight 06/06/16 06/07/16 06/08/16 23:59 23:59 23:59 Weight 98.9 kg 100.5 kg 99.609 kg - Physical Examination General: Conversant, No Apparent Distress Neck: No JVD, Normal carotid pulses Cardiac: Reg Rate and Rhythm, Normal S1 and S2, No Murmur Lungs: Normal Breath Sounds, No Wheeze, Rales, Rhonchi Neuro: Alert and responsive, No focal deficits noted Vascular: Normal capillary refill Musculoskeletal: No Chest Wall Tenderness Extremities: No Clubbing, No Cyanosis, No Edema - Labs 06/06/16 05:05 06/05/16 04:00 - VTE Documentation of Mechanical Device: Graduated compression elastic hosiery Consult Discharge Plan - Plan Referrals: Sujit Borjas CNP [Advanced Practice Nurse] - 07/01/16 1:00 pm Micheal Silver MD [Primary Care Provider] - () Jelly Ren CNP [Advanced Practice Nurse] - 06/17/16 9:00 am Moe Casillas MD [Partnered Physician] - 07/04/16 1:30 pm
[2016-06-08] MEDS: Aspirin 81 MG TAB.CHEW PO SCH (20:58)
[2016-06-08] MEDS: Insulin DETEMIR 100 UNIT/ML X5UNITS SQ SCH (20:59)
[2016-06-09] MEDS: *HR* OxyCODONE/APAP 10/325 TABLET PO PRN ×3 (02:55→12:59)
[2016-06-09] MEDS: *HR* Heparin 5,000 UNIT/ML VIAL SQ SCH (05:17)
[2016-06-09] MEDS: *HR* HYDROmorphone 2 MG/ML SYRINGE IVP PRN ×2 (05:18→08:32)
[2016-06-09 08:05] VITALS: BP 115/65
[2016-06-09] MEDS: Insulin LISPRO 300 UNITS/3 ML VIAL SQ SCH ×2 (08:17→12:34)
[2016-06-09] MEDS: Nicotine 21 MG PATCH.TD24 TD SCH (08:19)
[2016-06-09] MEDS: *HR* Glimepiride 2 MG TABLET PO SCH (08:20)
[2016-06-09] MEDS: Gabapentin 400 MG CAPSULE PO SCH (08:20)
[2016-06-09] MEDS ORDERED: TRULICITY 1.5MG SQ SCH ×2 (09:00)
--- NOTE | 2016-06-09 11:58 | Discharge Summary ---
Date of Encounter: 06/09/16 Time of Encounter: 11:57 - Discharge Diagnosis (1) Coronary artery disease Priority: Primary Status: Acute Qualifiers: Coronary Disease-Associated Artery/Lesion type: [place] artery [place] vs. transplanted heart: [place] heart Associated angina: with stable angina Qualified Code(s): I25.118 - Atherosclerotic heart disease of [place] coronary artery with other forms of angina pectoris - Discharge Medications Prescriptions: OxyCODONE/APAP 10/325 [Percocet 10/325 MG] 1 each PO Q4HR #50 tablet Metoprolol [Lopressor] 50 mg PO BID #60 tablet Nicotine Patch [Nicoderm] 21 mg TD DAILY #30 patch.td24 Home Medications: Amitriptyline [Elavil] 50 mg PO HS 04/21/15 [History] Aspirin 81 mg PO HS 04/21/15 [History] Clopidogrel [Plavix] 75 mg PO DAILY 04/21/15 [History] Gabapentin [Neurontin] 800 mg PO TID 04/21/15 [History] Glimepiride [Amaryl] 2 mg PO BID 04/21/15 [History] Omeprazole [PriLOSEC] 40 mg PO DAILY 04/21/15 [History] Oxycodone HCl/Acetaminophen [Percocet 10-325 mg Tablet] 1 tab PO Q6H PRN [History] Pravastatin Sodium [Pravachol] 40 mg PO HS 04/21/15 [History] Diclofenac Sodium [Voltaren] 100 gm TP QID PRN 05/29/16 [History] Dulaglutide [Trulicity] 1.5 mg SQ CENTENO 05/29/16 [History] Tizanidine HCl [Zanaflex] 6 mg PO TID PRN 05/29/16 [History] Triamcinolone Acet 0.1% CRM [Kenalog] 1 appl TP ONCE PRN 05/29/16 [History] Lisinopril/Hydrochlorothiazide [Zestoretic 20-25 mg Tablet] 1 each PO DAILY [History] Meloxicam [Mobic] 15 mg PO DAILY 06/04/16 [History] PredniSONE 20 mg PO HS 06/04/16 [History] Metoprolol [Lopressor] 50 mg PO BID #60 tablet 06/09/16 [Rx] Nicotine Patch [Nicoderm] 21 mg TD DAILY #30 patch.td24 06/09/16 [Rx] OxyCODONE/APAP 10/325 [Percocet 10/325 MG] 1 each PO Q4HR #50 tablet 06/09/16 [ Rx] Allergies/Adverse Reactions: Allergies Amoxicillin Allergy (Verified 06/04/16 07:43) hives throat swelling ampicillin Allergy (Verified 06/04/16 07:43) hives throat swelling Penicillins [PCN] Allergy (Verified 06/04/16 07:43) Anaphylaxis hives throat swelling Date of admission: 06/04/16 09:52 Primary care physician: Micheal Silver MD Consults: 06/04/16 12:01 Consult to Cardiac Rehabilitation-Phase1 [CONS] Routine Comment: Reason for Consult: Post open heart Call Completed: Yes Consult to Portfolio Management Marketing [CONS] Routine Reason for SW Consult: open heart 06/05/16 11:40 Consult for Pharmacy Education [CONS] Routine Reason for Consult: Post-Op Heart Call Completed: Yes Consult to Occupational Therapy [CONS] Routine Comment: Evaluate, develop and implement POC Consult to Physical Therapy [CONS] Routine Comment: Evaluate, develop and implement POC Procedure(s) Performed: 1. CABG 2 (HAHN to LAD, SVG to OM1) performed June 04, 2016. 2. Endoscopic vein harvesting, greater saphenous vein from right lower extremity performed June 04, 2016. Discharging clinician: Cailin Davis Anticipated date of discharge: 06/09/16 - Patient Status Disposition: Home, Self-Care Condition: Good Functional capacity at discharge: independent ambulation Overall status at discharge: patient is progressing back to baseline - Discharge Instructions Follow Up With: Sujit Borjas CNP [Advanced Practice Nurse] - 07/01/16 1:00 pm Micheal Silver MD [Primary Care Provider] - (Jelly Allison CNP [Advanced Practice Nurse] - 06/17/16 9:00 am Moe Casillas MD [Partnered Physician] - 07/04/16 1:30 pm - Diet and Activity Activity: sternal precautions, no driving for four weeks, no lifting greater than 10 pounds for eight weeks Diet: diabetic diet, low fat, low cholesterol - Hospital Course Hospital course: Mr. Dempsey is a 50 year old type II diabetic, hypertensive, moderately obese man who was admitted to [facility] on May 29, 2016 for an elective cardiac catheterization. The patient had complained of substernal chest tightness, shortness breath, and dyspnea on exertion. Cardiac catheterization at that time revealed severe 3 vessel CAD and LVEF 55%. The patient had been recommended for CABG; however, he had been on Plavix for his previous myocardial infarction. This medication was stopped for 6 days prior to CABG. The patient underwent CABG 2 on June 04, 2016. His postoperative course was uncomplicated and he was transferred to the stepdown unit on POD #1. The patient was ambulating without complaints of substernal chest pain or shortness of breath. He was then discharged home on POD #5. Time spent discussing smoking cessation with patient: 3 to 10 minutes (The patient requested NicoDerm patches at discharge.) - Time Spent with Patient Total time spent providing and/or coordinating discharge services: Physical Examination Vital Signs, Last 4 Hours Pulse Resp Pulse Ox 06/09/16 10:08 20 94 L 06/09/16 08:15 101 General: Conversant, No Apparent Distress HEENT: Atraumatic, Normocephaly, Trachea midline Neck: No JVD, Normal carotid pulses Cardiac: Reg Rate and Rhythm, Normal S1 and S2, No Murmur Lungs: Normal Breath Sounds, No Wheeze, Rales, Rhonchi Neuro: Alert and responsive, No focal deficits noted Vascular: Normal capillary refill Abdomen: Soft, Non-tender Skin: No rashes noted on visualized skin Musculoskeletal: No Chest Wall Tenderness Extremities: No Clubbing, No Cyanosis, No Edema Open Heart Registry Aspirin Cont/Prescribed at DC: Yes Beta Roxanne Cont/Prescribed at DC: Yes Statin Cont/Prescribed at DC: Yes CHRYSTAL/ARB Cont/Prescribed at DC: Not indicated (LVEF greater than 50%) - VTE Documentation of Mechanical Device: Graduated compression elastic hosiery
== END 2016-06-09 13:30 | disposition home or self-care (01) | DRG 236 ==
LOC: SAMDAY 06:20 → ICNU 09:52 → 2NNU 06-05 15:47
PROVIDERS: ADMIT Thoracic Surgery (Cardiothoracic Vascular Surgery); ATTEND Thoracic Surgery (Cardiothoracic Vascular Surgery)

== ENCOUNTER 2016-06-27 16:46 | Inpatient (IN) ==
[2016-06-27] MEDS ORDERED: Naloxone 0.4 MG/ML INJ IVP PRN (19:32)
[2016-06-27] MEDS ORDERED: *HR* Morphine 2 MG/ML SYRINGE IVP PRN (19:32)
[2016-06-27] MEDS ORDERED: Acetaminophen 325 MG TABLET PO PRN (19:32)
[2016-06-27] MEDS ORDERED: *HR* HYDROcodone/Acet 5/325 mg TABLET PO PRN (19:32)
[2016-06-27] MEDS ORDERED: Ondansetron 4 MG/2 ML VIAL IVP PRN (19:32)
--- NOTE | 2016-06-27 19:58 | Internal Med History&Physical ---
Date of Encounter: 06/27/16 Time of Encounter: 19:56 Assessment and Plan (1) Pleural effusion Current visit: Yes Status: Acute IR for drainage (2) Acute and chronic respiratory failure with hypoxia Current visit: Yes Status: Acute Responded to oxygen, continue same Possibly secondary to pleural effusion CT surgeon is aware, recommends IR for thoracentensis, IR consulted for thoracentensis (3) Sternal wound dehiscence Current visit: Yes Status: Acute Per thoracic surgeon, wound vac may be changed by wound care nurses, wound care will be consulted Qualifiers: Encounter type: subsequent encounter Qualified Code(s): T81.32XD - Disruption of internal operation (surgical) wound, not elsewhere classified, subsequent encounter (4) COPD (chronic obstructive pulmonary disease) Current visit: Yes Status: Chronic Qualifiers: COPD type: unspecified COPD Qualified Code(s): J44.9 - Chronic obstructive pulmonary disease, unspecified (5) Coronary artery disease Current visit: Yes Status: Chronic Qualifiers: Coronary Disease-Associated Artery/Lesion type: [place] artery [place] vs. transplanted heart: [place] heart Associated angina: without angina Qualified Code(s): I25.10 - Atherosclerotic heart disease of [place] coronary artery without angina pectoris (6) Diabetes mellitus Current visit: Yes Status: Chronic Qualifiers: Diabetes mellitus type: type 2 Diabetes mellitus complication status: with unspecified complications Diabetes mellitus care home insulin use: without care home use Qualified Code(s): E11.8 - Type 2 diabetes mellitus with unspecified complications (7) Dyslipidemia Current visit: Yes Status: Chronic (8) Hypertension Current visit: Yes Status: Chronic Qualifiers: Hypertension type: essential hypertension Qualified Code(s): I10 - Essential (primary) hypertension (9) CHF (congestive heart failure) Current visit: Yes Status: Chronic Qualifiers: Congestive heart failure type: systolic [place] heart failure chronicity : chronic Qualified Code(s): I50.22 - Chronic systolic (congestive) heart failure Internal Medicine - H&P: HPI Chief complaint: Wound Vac malfunction, new pleural effusion Admitted From: Hospital to Hospital Transfer Plans for Post Hospital Care: Transfer [facility] Facility History of present illness: Mr. Dempsey is a 50 year old male s/p CABG X2, just discharged 06/22/16 to SNF with sternal wound VAc following a sternal wound dehiscence during that admission Was in apparent usual state of health till last night when he choked on his meal and had several spells of cough to expel the corn, he then noticed afterwards that his wound vac stopped working and his wound started leaking. This morning, he developed difficulty breathing, with decreased oxygen saturation which responded to increase in his baseline O2 concentration and he aso developed tachycardia. Work up at [place] revealed chronic stable anemia, hyperkalemia , troponin 0.08 , EKG with sinus tachycardia , CXR with large pleural effusion He was the transferred here for further management At time I saw patient with his at the bedside, he denies any new complains. He denies chest pain, cough, fever or chills, no abdominal symptoms, no leg edema, no worsening orthopnea. He is comfortable in bed, not in respiratory distress, completes sentences, tachycardia, tachypneic, saturating 95% on 2L Oxygen. Chest wall with wound vac and surrounding serosanguinous fluid drainage staining the dressing on his chest wall. No JVD Diminished breath sounds on the left lung, heart sounds S1, S2, distant. Abdomen is obese, not tender, no palpably enlarged organs, bowel sounds present in all quadrants No pedal edema Labs and papers from [facility] reviewed EKG: Sinus tachycardia INR 1.34 Hb 8.1, WBC 7.0 Chem: K 5.6, na 128, Cr 1.18 Troponin 0.08 CXR : Left pleural effusion ECHO from previous admission: LVEF 50%, LV systolic dysfunction, BBB. Past Med Surg Social Fam HX - Past Medical History Medical history: arthritis, diabetes, hyperlipidemia, hypertension, myocardial infarction, peripheral artery disease Psychiatric history: no psych history - Past Surgical History Surgical History: angioplasty/stent, vascular surgery, other - Social History Smoking Status: Former smoker Smokeless Tobacco Status: No Alcohol use: none Drug use: none Internal Medicine - H&P: Meds Amitriptyline [Elavil] 50 mg PO HS 04/21/15 [History] Aspirin 81 mg PO HS 04/21/15 [History] Clopidogrel [Plavix] 75 mg PO DAILY 04/21/15 [History] Gabapentin [Neurontin] 800 mg PO TID 04/21/15 [History] Glimepiride [Amaryl] 2 mg PO BID 04/21/15 [History] Omeprazole [PriLOSEC] 40 mg PO DAILY 04/21/15 [History] Pravastatin Sodium [Pravachol] 40 mg PO HS 04/21/15 [History] Diclofenac Sodium [Voltaren] 100 gm TP QID PRN 05/29/16 [History] Dulaglutide [Trulicity] 1.5 mg SQ CENTENO 05/29/16 [History] Tizanidine HCl [Zanaflex] 6 mg PO TID PRN 05/29/16 [History] Triamcinolone Acet 0.1% CRM [Kenalog] 1 appl TP ONCE PRN 05/29/16 [History] Lisinopril/Hydrochlorothiazide [Zestoretic 20-25 mg Tablet] 1 tab PO DAILY 06/04 [History] Meloxicam [Mobic] 15 mg PO DAILY 06/04/16 [History] Metoprolol [Lopressor] 50 mg PO BID #60 tablet 06/09/16 [Rx] Nicotine Patch [Nicoderm] 21 mg TD DAILY #30 patch.td24 06/09/16 [Rx] OxyCODONE/APAP 10/325 [Percocet 10/325 MG] 1 tab PO Q4HR PRN #50 tablet [Rx] Allergies Amoxicillin Allergy (Verified 06/11/16 19:10) Anaphylaxis ampicillin Allergy (Verified 06/11/16 19:10) Anaphylaxis Penicillins [PCN] Allergy (Verified 06/11/16 19:10) Anaphylaxis All Systems PM: A 10-system review of systems was performed and is negative for pertinent findings except as documented above in the HPI. - Constitutional Vitals: Temp Pulse Resp BP Pulse Ox 99.1 F 126 20 125/65 93 L 06/27/16 18:19 06/27/16 18:19 06/27/16 18:19 06/27/16 18:19 06/27/16 18:19
[2016-06-27] MEDS ORDERED: tiZANidine 4 MG TABLET PO PRN (20:24)
[2016-06-27] MEDS ORDERED: Triamcinolone Acet 0.1% CRM 1 APPL GRAM TP PRN (20:24)
[2016-06-27 20:37] LABS: INR 1.5; Prothrombin Time 16.6 Seconds (9.4-12.1)
[2016-06-27 20:40] LABS: Activated Partial Thrombo Time 35.4 Seconds (26.0-36.0)
[2016-06-27] MEDS: Gabapentin 400 MG CAPSULE PO SCH (22:04)
[2016-06-27] MEDS: Aspirin 81 MG TAB.CHEW PO SCH (22:04)
[2016-06-27] MEDS ORDERED: Vancomycin 1,250 MG in D5% in Water 250 ML IVPB SCH (23:45)
[2016-06-27] MEDS ORDERED: 0.9 % Sodium Chloride 1,000 ML ONE (23:52)
[2016-06-28 00:28] LABS: Basophils % 0.2 %; Eosinophils % 0.7 %; Hematocrit 19.7 % (37.5-50.1); Immature Granulocytes % 0.4 % (0-4); Lymphocytes # 0.8 K/mcL (0.6-4.6); Lymphocytes % 14.1 %; Mean Corpuscular Hemoglobin 28.1 pg (28.0-33.3); Mean Corpuscular Volume 85.3 fL (83.0-100.0); Mean Platelet Volume 9.1 fL (9.4-12.4); Monocytes # 0.8 K/mcL (0.0-1.3); Monocytes % 13.6 %; Platelet Count 274 K/mcL (140-400); Red Blood Count 2.31 M/mcL (4.19-5.50); Red Cell Distribution Width 13.2 % (11.5-14.5)
[2016-06-28 00:29] LABS: Hemoglobin 6.5 g/dL (12.9-16.9)
[2016-06-28] MEDS: Levofloxacin 750 MG/150 ML 750 MG/150 ML BAG IVPB SCH ×2 (00:39→10:28)
[2016-06-28 00:44] LABS: BUN/Creatinine Ratio 20 (6-26); Blood Urea Nitrogen 19 mg/dL (8-26); Calcium 7.8 mg/dL (8.6-10.8); Carbon Dioxide 22 mEq/L (19-29); Chloride 98 mEq/L (98-109); Glucose 139 mg/dL (70-99); Magnesium 1.4 mg/dL (1.6-2.6); Osmolality,Calculated 271 (280-300); Potassium 5.2 mEq/L (3.5-4.5); Sodium 128 mEq/L (136-145); eGFR For African Americans > 60 (> 60); eGFR For Non-African Americans > 60 (> 60)
[2016-06-28 00:48] LABS: ABG Base Excess 0.9 mEq/L (-2.0 to 3.0); ABG Oxygen Saturation 85 % (95-98); ABG PCO2 36 mmHg (35-45); ABG PH 7.45 pH Units (7.32-7.45); ABG TCO2 26.1 mEq/L (20-26); Blood Gas FiO2 32 %
[2016-06-28 00:49] LABS: ABG PO2 47 mmHg (85-104)
[2016-06-28] MEDS ORDERED: 0.9 % Sodium Chloride 1,000 ML ONE (01:25)
[2016-06-28] MEDS ORDERED: Magnesium Sulfate 2 GM in D5% in Water 100 ML IVPB ONE (01:29)
[2016-06-28] MEDS: Vancomycin 1,750 MG in D5% in Water 500 ML IVPB SCH ×2 (01:30→13:06)
[2016-06-28] MEDS: Norepinephrine 4 MG in D5% in Water 250 ML IVC SCH ×2 (01:30→13:07)
[2016-06-28] MEDS: 0.9 % Sodium Chloride 1,000 ML IVC SCH ×3 (01:30→22:14)
--- NOTE | 2016-06-28 01:42 | Event Note ---
Date of Encounter: 06/28/16 Time of Encounter: 01:24 Called to see pt around 23:45 tonight (06-27-16) for concerns of wound dehiscence. Pt was transferred earlier today from another hospital and was admitted to hospitalist service with a consult to CT surgery. Upon my arrival to pt room, his wound was open and fully dehisced. I called and discussed with Dr. Davis, and he instructed me/nursing staff to replace wound vac. Wound was treated by nursing staff per Dr. Davis's request. Before and during the wound vac change, pt's BP was noted to drop and his perfusion on exam was suboptimal. I also noted a low grade temperature. Pt was minimally responsive on exam and BP was down to 50/30's. I ordered IVF fluid bolus, ABG, and STAT labs. Additionally, out of concerns for sepsis, I ordered blood cultures and antibiotics. I discussed with Dr. Davis, and he concurred. We started Dopamine initially and his BP stabilized. I then placed a CVC (detailed separately) and moved him to ICU for closer monitoring and support. Pt is hypoxemic and placed on NRB oxygen mask. Additionally, he is anemic with hgb of 6.5. I am correcting his electrolyte abnormalities, transfusing him blood, and continuing antibiotics while maintaining hemodynamic support. If necessary, we will intubate and initiate mechanical ventilation. Exam reveals the following: Somnolent and minimally arousable HEENT: pupils ~ 3 mm and reactive Chest: Wound dressed with wound VAC; RRR; breath sounds diminished in bases; scattered rhonchi Abdomen: soft, obese, NT, No HSMG Ext: Pulses weak and thready; no calf tenderness; cap refill > 5 seconds Neuro: depressed mental status; arousable to loud voice and pain Impression/Plan: 1. Sepsis: draw blood cultures; start Vancomycin and Levaquin. IVF, pressors as needed. CVC placement. Consult Animal Damage Control Agent for ICU management. 2. Hypoxemia: NRB O2; likely intubate as he may not be able to protect airway. 3. Sternal Wound dehiscence: Dr. Davis to see and guide for management. Total 45 minutes critical care time thus far, excluding separately dictated procedure note (CVC)
[2016-06-28] MEDS ORDERED: Lacri-Lube 3.5 GM TUBE BOTH EYES PRN (02:10)
--- NOTE | 2016-06-28 02:26 | Event Note ---
Date of Encounter: 06/28/16 Time of Encounter: 02:15 I made decision to intubate patient due to persistent hypoxemia, depressed mental status, and decreasing ability to protect airway. Pt was premedicated with Versed and Etomidate per my request. Intubation was performed by Respiratory Therapy under my direct supervision. ETT placement successful on second attempt. Bilateral breath sounds auscultated and ETT secured. CXR pending to confirm placement.
[2016-06-28] MEDS: *HR* Rocuronium Bromide 50 MG/5 ML VIAL IVP PRN ×3 (02:30→21:14)
--- NOTE | 2016-06-28 02:31 | Procedure Note ---
Date of procedure: 06/28/16 Pre-op diagnosis: Sepsis Post-op diagnosis: same Procedure: Right Femoral CVC placement Pt was prepped and draped in sterile fashion. Using 16 cm Arrows triple lumen catheter kit, I used the provided Lidocaine for local analgesia. Using Seldinger technique, I successfully aspirated and cannulated the right femoral vein. Once triple lumen catheter was placed, I removed guidewire intact. All three ports were successfully aspirated of blood and flushed with normal saline. CVC was then sutured in place. Pt. tolerated procedure well with no immediate complications. Consent was implied as this was emergent procedure as witnessed by RN and pulp house supervisor. Time Out performed with Broommaker Sherry Hill and Nurse Chelsie. Anesthesia: local Surgeon: Dewayne Hanson Estimated blood loss (cc): 10 Pathology: none sent Condition: critical Disposition: ICU
[2016-06-28] MEDS: FentaNYL (PF) 1,000 MCG in 0.9 % Sodium Chloride 80 ML IVC SCH ×5 (02:36→22:18)
[2016-06-28 02:54] LABS: Basophils % 0.3 %; Eosinophils # 0.1 K/mcL (0.0-0.6); Eosinophils % 0.8 %; Hematocrit 22.4 % (37.5-50.1); Hemoglobin 7.3 g/dL (12.9-16.9); Immature Granulocytes % 0.3 % (0-4); Immature Platelets 1.6 % (1.1-6.1); Lymphocytes # 0.8 K/mcL (0.6-4.6); Lymphocytes % 13.1 %; Mean Corpuscular HGB Conc 32.6 g/dL (31.6-35.5); Mean Corpuscular Hemoglobin 28.3 pg (28.0-33.3); Mean Corpuscular Volume 86.8 fL (83.0-100.0); Monocytes # 0.7 K/mcL (0.0-1.3); Monocytes % 11.3 %; Neutrophils # 4.5 K/mcL (1.6-8.9); Platelet Count 363 K/mcL (140-400); Red Blood Count 2.58 M/mcL (4.19-5.50); Red Cell Distribution Width 13.3 % (11.5-14.5); Segmented Neutrophils % 74.2 %
[2016-06-28] MEDS: *HR* Heparin 5,000 UNIT/ML VIAL SQ SCH ×3 (03:03→17:47)
[2016-06-28 03:06] LABS: BUN/Creatinine Ratio 19 (6-26); Blood Urea Nitrogen 20 mg/dL (8-26); Calcium 7.8 mg/dL (8.6-10.8); Carbon Dioxide 22 mEq/L (19-29); Chloride 97 mEq/L (98-109); Glucose 265 mg/dL (70-99); Osmolality,Calculated 274 (280-300); Potassium 5.1 mEq/L (3.5-4.5); Sodium 126 mEq/L (136-145); eGFR For African Americans > 60 (> 60); eGFR For Non-African Americans > 60 (> 60)
[2016-06-28 03:08] LABS: Albumin/Globulin Ratio 0.4 (1.1-2.2); Bilirubin,Direct 0.3 mg/dL (0.0-0.5); Bilirubin,Indirect 0.2 mg/dL (0.0-1.2); Bilirubin,Total 0.5 mg/dL (0.2-1.2); Globulin 3.4 g/dL (2.4-3.5); Total Protein 4.9 g/dL (6.0-8.3)
[2016-06-28 03:13] LABS: Albumin 1.5 g/dL (3.5-5.0)
[2016-06-28 03:44] LABS: Platelet Estimate Normal (Normal)
[2016-06-28] MEDS ORDERED: 0.9 % Sodium Chloride 250 ML ONE (03:51)
[2016-06-28 04:16] LABS: ABG Base Excess -4.2 mEq/L (-2.0 to 3.0); ABG Oxygen Saturation 100 % (95-98); ABG PCO2 50 mmHg (35-45); ABG PH 7.27 pH Units (7.32-7.45); ABG PO2 259 mmHg (85-104); ABG TCO2 24.5 mEq/L (20-26); Blood Gas FiO2 100 %
[2016-06-28] MEDS: Lacri-Lube 3.5 GM TUBE BOTH EYES SCH ×5 (05:28→21:07)
--- NOTE | 2016-06-28 06:23 | Pulmonology History & Physical ---
Date of Encounter: 06/28/16 Time of Encounter: 06:09 Assessment and Plan (1) Acute and chronic respiratory failure with hypoxia Current visit: Yes Status: Acute On transfer to our facility patient was initially stable however overnight he became minimally responsive, hypotensive at 50/30 with severe sternal retractions patient was subsequently intubated for persistent hypoxemia and inability to protect his airway. ET tube was noted to be 2.8 cm above the k[place] on chest x-ray. 7.5 is noted to be placed at 23. Pressors are required. Patient is currently on norepinephrine. Pain management with fentanyl. Neuromuscular blockade with rocuronium as patient was reported to be coughing against the and exhibiting sternal retractions. General anesthesia maintenance with propofol . Patient with significant history of coronary artery disease who is status post CABG 2 discharge from the hospital 06/22/16. Episode of choking on food and subsequent next day shortness of breath And difficulty breathing in conjunction with wound dehiscence and VAC that has not been functioning appropriately. This may be attributable to aspiration pneumonitis versus surgical complication in addition to underlying conditions include tobacco abuse disorder, and COPD and worsening congestive heart failure , likely contributory to acute respiratory failure as well as above. Suspected sepsis: Blood cultures pending. Vancomycin and Levaquin given empirically. Patient had a positive fluid balance of 883 overnight. Vitals stable at this time current oxygen saturation at 97% on vent at 500/14/5/40. Right femoral CVC placement for access. Patient also received 2 units of pack red blood cells due to a hemoglobin noted to be 6.5. On chest x-ray of note was a large left-sided pleural effusion with compressive atelectasis. Dr. Davis placed a chest tube this morning and chest x-ray confirmed successful evacuation of left-sided pleural effusion without pneumothorax. Continue to monitor patient as he is stable for transfer. Plan to transfer to [facility] cardiothoracic surgery for flap. Spoke with [facility] admissions at 10:15 AM 06/28/16. (2) Pleural effusion Current visit: Yes Status: Acute Chest tube in place with demonstration of resolution of effusion. See above. (3) Sternal wound dehiscence Current visit: Yes Status: Acute Wound VAC is currently in place and sealed appropriately patient on rocuronium as needed to prevent further bradycardia again spent an accessory muscle use/ breathing against vent. Qualifiers: Encounter type: subsequent encounter Qualified Code(s): T81.32XD - Disruption of internal operation (surgical) wound, not elsewhere classified, subsequent encounter (4) CHF (congestive heart failure) Current visit: Yes Status: Chronic Qualifiers: Congestive heart failure type: systolic Congestive heart failure chronicity : chronic Qualified Code(s): I50.22 - Chronic systolic (congestive) heart failure (5) COPD (chronic obstructive pulmonary disease) Current visit: Yes Status: Chronic Qualifiers: COPD type: unspecified COPD Qualified Code(s): J44.9 - Chronic obstructive pulmonary disease, unspecified (6) Coronary artery disease Current visit: Yes Status: Chronic Qualifiers: Coronary Disease-Associated Artery/Lesion type: [place] artery [place] vs. transplanted heart: [place] heart Associated angina: without angina Qualified Code(s): I25.10 - Atherosclerotic heart disease of [place] coronary artery without angina pectoris (7) Diabetes mellitus Current visit: Yes Status: Chronic Qualifiers: Diabetes mellitus type: type 2 Diabetes mellitus complication status: with unspecified complications Diabetes mellitus group home insulin use: without buttermaker helper use Qualified Code(s): E11.8 - Type 2 diabetes mellitus with unspecified complications (8) Dyslipidemia Current visit: Yes Status: Chronic (9) Hypertension Current visit: Yes Status: Chronic Qualifiers: Hypertension type: essential hypertension Qualified Code(s): I10 - Essential (primary) hypertension (10) Atelectasis of left lung Current visit: No Status: Acute (11) DVT prophylaxis Current visit: No Status: Acute (12) Nicotine dependence Current visit: No Status: Acute Qualifiers: Nicotine product type: cigarettes Substance use status: in remission Qualified Code(s): F17.211 - Nicotine dependence, cigarettes, in remission (13) Postoperative wound dehiscence Current visit: No Status: Acute Qualifiers: Encounter type: initial encounter Qualified Code(s): T81.31XA - Disruption of external operation (surgical) wound, not elsewhere classified, initial encounter (14) S/P CABG x 2 Current visit: No Status: Acute (15) Obesity (BMI 30-39.9) Current visit: No Status: Chronic History of Present Illness Chief complaint: AMS HPI: Mr. Dempsey is a 50 year old male with a past medical history of diabetes, dyslipidemia, hypertension, CHF, COPD, coronary artery disease status post CABG 2 discharged on 06/22/16 nursing [facility] with sternal wound VAC due to a sternal wound dehiscence. While eating dinner patient apparently began choking/ coughing to dislodge corn. After that time patient noted that his wound VAC it stopped working and was apparently leaking. The following morning on 06/27/16 patient developed difficulty breathing and was taken to [place] for further workup. At [place] he was noted to have decreased oxygen saturation and tachycardia. Laboratory results revealed that patient had stable anemia, hyperkalemia, troponin of 0.08, EKG demonstrated sinus tachycardia and chest x- ray demonstrated a large pleural effusion patient was transferred to [place] for further management. Patient was admitted to [address] [place] [address] service. Overnight, patient became minimally responsive, hypotensive 50/30 . Patient was intubated and placed on ventilator for persistent hypoxemia and inability to protect airway. A right femoral CVC was placed for access. Patient was placed on pressor support with norepinephrine. Blood cultures were drawn for suspicion of sepsis; vancomycin and Levaquin started. Blood transfusion of 2 units packed red blood cells due to hemoglobin of 6.5. correction of electrolytes. Dr. Davis saw the patient this morning and placed a chest tube; chest x-ray demonstrated evacuation of left pleural effusion following chest tube placement without pneumothorax. Patient will be transferred to [facility] for flap/cardiothoracic surgery. Past Med Surg Social Fam HX - Past Medical History Medical history: arthritis, diabetes, hyperlipidemia, hypertension, myocardial infarction, peripheral artery disease Psychiatric history: no psych history - Past Surgical History Surgical History: angioplasty/stent, vascular surgery, other - Social History Smoking Status: Former smoker Smokeless Tobacco Status: No Alcohol use: none Drug use: none Medications and Allergies Amitriptyline [Elavil] 50 mg PO HS 04/21/15 [History] Aspirin 81 mg PO HS 04/21/15 [History] Clopidogrel [Plavix] 75 mg PO DAILY 04/21/15 [History] Gabapentin [Neurontin] 800 mg PO TID 04/21/15 [History] Glimepiride [Amaryl] 2 mg PO BID 04/21/15 [History] Omeprazole [PriLOSEC] 40 mg PO DAILY 04/21/15 [History] Pravastatin Sodium [Pravachol] 40 mg PO HS 04/21/15 [History] Diclofenac Sodium [Voltaren] 100 gm TP QID PRN 05/29/16 [History] Dulaglutide [Trulicity] 1.5 mg SQ CENTENO 05/29/16 [History] Tizanidine HCl [Zanaflex] 6 mg PO TID PRN 05/29/16 [History] Triamcinolone Acet 0.1% CRM [Kenalog] 1 appl TP ONCE PRN 05/29/16 [History] Lisinopril/Hydrochlorothiazide [Zestoretic 20-25 mg Tablet] 1 tab PO DAILY 06/04 [History] Meloxicam [Mobic] 15 mg PO DAILY 06/04/16 [History] Metoprolol [Lopressor] 50 mg PO BID #60 tablet 06/09/16 [Rx] Nicotine Patch [Nicoderm] 21 mg TD DAILY #30 patch.td24 06/09/16 [Rx] OxyCODONE/APAP 10/325 [Percocet 10/325 MG] 1 tab PO Q4HR PRN #50 tablet [Rx] Allergies Amoxicillin Allergy (Verified 06/11/16 19:10) Anaphylaxis ampicillin Allergy (Verified 06/11/16 19:10) Anaphylaxis Penicillins [PCN] Allergy (Verified 06/11/16 19:10) Anaphylaxis ROS unobtainable: due to endotracheal tube, due to mental status All Systems: A 10-system review of systems was performed and is negative for pertinent findings except as documented above in the HPI. Physical Examination Vital Signs: Vital Signs, Last 4 Hours Temp Pulse Resp BP Pulse Ox 06/28/16 05:30 97.8 F 79 15 106/66 97 06/28/16 05:14 97.6 F 83 15 106/66 96 06/28/16 04:09 97.5 F L 95 18 102/63 94 L 06/28/16 03:58 98.8 F 06/28/16 03:54 98.8 F 101 15 101/62 97 06/28/16 03:00 107 14 107/63 100 06/28/16 02:50 110 06/28/16 02:28 28 121/71 98 General appearance: other (Intubated sedated) Eyes: nonicteric ENT: oropharynx moist Neck: supple, no lymphadenopathy, no JVD Inspection: other (Wound VAC is placed midsternum over wound dehiscence. Patient is on paralytics due to coughing against the event and sternal retractions.) Auscultation: bilateral: diminished breath sounds, wheezes Cardiovascular: PVC's noted Gastrointestinal: normoactive bowel sounds, soft Integumentary: normal Extremities: no cyanosis, no edema, pink and warm, pulses normal Musculoskeletal: no deformities pupils equal and round other Results - Laboratory Findings CBC and BMP: 06/28/16 02:45 06/28/16 02:45 ABG ABG pH 7.27 pH Units (7.32-7.45) L D 06/28/16 03:28 ABG pCO2 50 mmHg (35-45) H 06/28/16 03:28 ABG pO2 259 mmHg (85-104) H 06/28/16 03:28 ABG O2 Saturation 100 % (95-98) H 06/28/16 03:28 PT/INR, D-dimer PT 16.6 Seconds (9.4-12.1) H 06/27/16 20:05 Abnormal lab findings: Abnormal lab results RBC 2.58 M/mcL (4.19-5.50) L 06/28/16 02:45 Hgb 7.3 g/dL (12.9-16.9) L 06/28/16 02:45 Hct 22.4 % (37.5-50.1) L 06/28/16 02:45 MPV 9.0 fL (9.4-12.4) L 06/28/16 02:45 PT 16.6 Seconds (9.4-12.1) H 06/27/16 20:05 ABG pH 7.27 pH Units (7.32-7.45) L D 06/28/16 03:28 ABG pCO2 50 mmHg (35-45) H 06/28/16 03:28 ABG pO2 259 mmHg (85-104) H 06/28/16 03:28 ABG O2 Saturation 100 % (95-98) H 06/28/16 03:28 ABG Base Excess -4.2 mEq/L (-2.0 to 3.0) L 06/28/16 03:28 Sodium 126 mEq/L (136-145) L 06/28/16 02:45 Potassium 5.1 mEq/L (3.5-4.5) H 06/28/16 02:45 Chloride 97 mEq/L (98-109) L 06/28/16 02:45 Glucose 265 mg/dL (70-99) H 06/28/16 02:45 POC Glucose 290 (58-89) H 06/28/16 03:25 Calculated Osmolality 274 (280-300) L 06/28/16 02:45 Calcium 7.8 mg/dL (8.6-10.8) L 06/28/16 02:45 Magnesium 1.4 mg/dL (1.6-2.6) L 06/28/16 00:20 Serum Total Protein 4.9 g/dL (6.0-8.3) L 06/28/16 02:45 Albumin 1.5 g/dL (3.5-5.0) L 06/28/16 02:45 Albumin/Globulin Ratio 0.4 (1.1-2.2) L 06/28/16 02:45 KUB X-Ray 06/28/16 02:11 IMPRESSION: 1. Nasogastric tube terminating in the gastric body. D/ / Modesto Matta MD / Modesto Matta MD Interpreting Provider: Modesto Matta MD Chest X-Ray 06/28/16 09:45 IMPRESSION: Interval evacuation of left pleural effusion following chest tube placement, without pneumothorax. Unchanged mild cardiomegaly and pulmonary edema. Mild bibasilar opacities most likely represent atelectasis. D/ / Madhu Jurado MD / Madhu Jurado MD Interpreting Provider: Madhu Jurado MD - Diagnostic Findings Chest x-ray: report reviewed, image reviewed
[2016-06-28] MEDS ORDERED: D5% in Water 1,000 ML IV PRN (08:12)
[2016-06-28] MEDS ORDERED: *HR* Dextrose 50 % in Water (Syg) 50 ML SYRINGE IVP PRN (08:12)
[2016-06-28] MEDS ORDERED: Dextrose Gel 15 GM PO PRN ×2 (08:12)
[2016-06-28] MEDS ORDERED: *HR* Etomidate 40 MG/20 ML VIAL IVP ONE (08:43)
[2016-06-28] MEDS ORDERED: *HR* Midazolam HCl 5 MG/5 ML VIAL IVP ONE ×2 (08:43→08:51)
[2016-06-28] MEDS ORDERED: *HR* LORazepam 2 MG/ML VIAL IVP ONE (08:43)
[2016-06-28] MEDS ORDERED: *HR* Midazolam HCl 2 MG/2 ML VIAL IV ONE (08:43)
[2016-06-28] MEDS ORDERED: *HR* FentaNYL (PF) 250 MCG/5 ML VIAL ONE (08:51)
[2016-06-28] MEDS ORDERED: *HR* Midazolam HCl 2 MG/2 ML VIAL ONE (08:51)
[2016-06-28] MEDS: Chlorhexidine Rinse 15 ML MOUTHWASH MM SCH ×2 (10:26→21:07)
[2016-06-28] MEDS: Nicotine 21 MG PATCH.TD24 TD SCH (10:26)
[2016-06-28] MEDS: Pantoprazole 40 MG VIAL IVP SCH (10:26)
[2016-06-28] MEDS: Gabapentin 400 MG CAPSULE PO SCH ×3 (10:27→21:06)
--- NOTE | 2016-06-28 10:58 | Discharge Summary ---
<Rocio Del Rosario - Last Filed: 06/28/16 11:35> Date of Encounter: 06/28/16 Time of Encounter: 07:00 - Discharge Diagnosis (1) Acute and chronic respiratory failure with hypoxia Priority: Primary Status: Acute Comments: On transfer to our facility patient was initially stable however overnight he became minimally responsive, hypotensive at 50/30 with severe sternal retractions patient was subsequently intubated for persistent hypoxemia and inability to protect his airway. ET tube was noted to be 2.8 cm above the kalia on chest x-ray. 7.5 is noted to be placed at 23. Pressors are required. Patient is currently on norepinephrine. Pain management with fentanyl. Neuromuscular blockade with rocuronium as patient was reported to be coughing against the and exhibiting sternal retractions. General anesthesia maintenance with propofol . Patient with significant history of coronary artery disease who is status post CABG 2 discharge from the hospital 06/22/16. Episode of choking on food and subsequent next day shortness of breath And difficulty breathing in conjunction with wound dehiscence and VAC that has not been functioning appropriately. This may be attributable to aspiration pneumonitis versus surgical complication in addition to underlying conditions include tobacco abuse disorder, and COPD and worsening congestive heart failure , likely contributory to acute respiratory failure as well as above. Suspected sepsis: Blood cultures pending. Vancomycin and Levaquin given empirically. Patient had a positive fluid balance of 883 overnight. Vitals stable at this time current oxygen saturation at 97% on vent at 500/14/5/40. Right femoral CVC placement for access. Patient also received 2 units of pack red blood cells due to a hemoglobin noted to be 6.5. On chest x-ray of note was a large left-sided pleural effusion with compressive atelectasis. Dr. Davis placed a chest tube this morning and chest x-ray confirmed successful evacuation of left-sided pleural effusion without pneumothorax. Continue to monitor patient as he is stable for transfer. Plan to transfer to [facility] cardiothoracic surgery for flap. Spoke with [facility] admissions at 10:15 AM 06/28/16. Accepting physician: Dr Birch (2) Pleural effusion Priority: Secondary Status: Acute Comments: Chest tube in place with demonstration of resolution of effusion. See above. (3) Sternal wound dehiscence Priority: Primary Status: Acute Comments: Wound VAC is currently in place and sealed appropriately patient on rocuronium as needed to prevent further bradycardia again spent an accessory muscle use/ breathing against vent. Qualifiers: Encounter type: subsequent encounter Qualified Code(s): T81.32XD - Disruption of internal operation (surgical) wound, not elsewhere classified, subsequent encounter (4) CHF (congestive heart failure) Priority: Secondary Status: Chronic Qualifiers: Congestive heart failure type: systolic Congestive heart failure chronicity : chronic Qualified Code(s): I50.22 - Chronic systolic (congestive) heart failure (5) COPD (chronic obstructive pulmonary disease) Priority: Secondary Status: Chronic Qualifiers: COPD type: unspecified COPD Qualified Code(s): J44.9 - Chronic obstructive pulmonary disease, unspecified (6) Coronary artery disease Priority: Secondary Status: Chronic Qualifiers: Coronary Disease-Associated Artery/Lesion type: [place] artery [place] vs. transplanted heart: [place] heart Associated angina: without angina Qualified Code(s): I25.10 - Atherosclerotic heart disease of [place] coronary artery without angina pectoris (7) Diabetes mellitus Priority: Secondary Status: Chronic Qualifiers: Diabetes mellitus type: type 2 Diabetes mellitus complication status: with unspecified complications Diabetes mellitus shelter insulin use: without shelter use Qualified Code(s): E11.8 - Type 2 diabetes mellitus with unspecified complications (8) Dyslipidemia Priority: Secondary Status: Chronic (9) Hypertension Priority: Secondary Status: Chronic Qualifiers: Hypertension type: essential hypertension Qualified Code(s): I10 - Essential (primary) hypertension (10) Atelectasis of left lung Priority: Secondary Status: Acute (11) DVT prophylaxis Priority: Secondary Status: Acute (12) Nicotine dependence Priority: Secondary Status: Acute Qualifiers: Nicotine product type: cigarettes Substance use status: in remission Qualified Code(s): F17.211 - Nicotine dependence, cigarettes, in remission (13) Postoperative wound dehiscence Priority: Secondary Status: Acute Qualifiers: Encounter type: initial encounter Qualified Code(s): T81.31XA - Disruption of external operation (surgical) wound, not elsewhere classified, initial encounter (14) S/P CABG x 2 Priority: Primary Status: Acute (15) Obesity (BMI 30-39.9) Priority: Secondary Status: Chronic - Discharge Medications Home Medications: Clopidogrel [Plavix] 75 mg PO DAILY 04/21/15 [History] Nicotine Patch [Nicoderm] 21 mg TD DAILY #30 patch.[id number] 06/09/16 [Rx] Albuterol Sulfate [Albuterol Inhaler] 2 puff IH Q2HR PRN #0 inhaler 06/28/16 [Rx ] Chlorhexidine Rinse 15 ml MM BID mouthwash 06/28/16 [Rx] Dextrose 50 % in Water (Syg) [Dextrose 50% (Syg)] 25 ml IVP AD PRN #0 syringe [Rx] Dextrose Gel [Gluctose] 15 gm PO ONCE PRN #0 gel..gram. 06/28/16 [Rx] Dextrose Gel [Gluctose] 30 gm PO ONCE PRN #0 gel..gram. 06/28/16 [Rx] Glucagon, Human Recombinant [Glucagen] 1 mg IM ONCE PRN #0 vial 06/28/16 [Rx] Heparin 5,000 unit SQ Q8HR vial 06/28/16 [Rx] Insulin LISPRO [HumaLOG] 0 units SQ Q6HR vial 06/28/16 [Rx] Lacri-Lube [Lacri-lube] 1 appl BOTH EYES Q2HR PRN #0 tube 06/28/16 [Rx] Lacri-Lube [Lacri-lube] 1 appl BOTH EYES Q4HR tube 06/28/16 [Rx] Naloxone [Narcan] 0.4 mg IVP Q2MIN PRN #0 inj 06/28/16 [Rx] Ondansetron [Zofran] 4 mg IVP Q8HR PRN #0 vial 06/28/16 [Rx] Pantoprazole [Protonix] 40 mg IVP DAILY vial 06/28/16 [Rx] Rocuronium [place] [Zemuron] 55 mg IVP Q4H PRN #0 vial 06/28/16 [Rx] Allergies/Adverse Reactions: Allergies Amoxicillin Allergy (Verified 06/11/16 19:10) Anaphylaxis ampicillin Allergy (Verified 06/11/16 19:10) Anaphylaxis Penicillins [PCN] Allergy (Verified 06/11/16 19:10) Anaphylaxis Labs on day of discharge: Labs from last 24 hours 06/28/16 06/28/16 06/28/16 08:19 03:28 03:25 WBC RBC Hgb Hct MCV MCH MCHC RDW Plt Count MPV Immature Gran % Seg Neutrophils % Lymphocytes % Monocytes % Eosinophils % Basophils % Neutrophils # Lymphocytes # Monocytes # Eosinophils # Basophils # Platelet Estimate Immature Plt Fraction PT INR APTT ABG pH 7.27 L D ABG pCO2 50 H ABG pO2 259 H ABG HCO3 23.0 ABG Total CO2 24.5 ABG O2 Saturation 100 H ABG Base Excess -4.2 L Blood Gas Modality ASSIST CONTROL Inspired O2 100 Sodium Potassium Chloride Carbon Dioxide BUN Creatinine Est GFR ( Amer) Est GFR (Non-Af Amer) BUN/Creatinine Ratio Glucose POC Glucose 214 H 290 H Calculated Osmolality Lactic Acid Calcium Magnesium Total Bilirubin Direct Bilirubin Indirect Bilirubin AST ALT Alkaline Phosphatase Serum Total Protein Albumin Globulin Albumin/Globulin Ratio Specimen Rejected Blood Type Antibody Screen Crossmatch 06/28/16 06/28/16 06/28/16 02:45 02:45 02:45 WBC RBC Hgb Hct MCV MCH MCHC RDW Plt Count MPV Immature Gran % Seg Neutrophils % Lymphocytes % Monocytes % Eosinophils % Basophils % Neutrophils # Lymphocytes # Monocytes # Eosinophils # Basophils # Platelet Estimate Immature Plt Fraction PT INR APTT 36.0 ABG pH ABG pCO2 ABG pO2 ABG HCO3 ABG Total CO2 ABG O2 Saturation ABG Base Excess Blood Gas Modality Inspired O2 Sodium Potassium Chloride Carbon Dioxide BUN Creatinine Est GFR ( Amer) Est GFR (Non-Af Amer) BUN/Creatinine Ratio Glucose POC Glucose Calculated Osmolality Lactic Acid 1.1 Calcium Magnesium Total Bilirubin 0.5 Direct Bilirubin 0.3 Indirect Bilirubin 0.2 AST 18 ALT 15 Alkaline Phosphatase 85 Serum Total Protein 4.9 L Albumin 1.5 L Globulin 3.4 Albumin/Globulin Ratio 0.4 L Specimen Rejected Blood Type Antibody Screen Crossmatch 06/28/16 06/28/16 06/28/16 02:45 02:45 02:30 WBC 6.0 RBC 2.58 L Hgb 7.3 L Hct 22.4 L MCV 86.8 MCH 28.3 MCHC 32.6 RDW 13.3 Plt Count 363 MPV 9.0 L Immature Gran % 0.3 Seg Neutrophils % 74.2 Lymphocytes % 13.1 Monocytes % 11.3 Eosinophils % 0.8 Basophils % 0.3 Neutrophils # 4.5 Lymphocytes # 0.8 Monocytes # 0.7 Eosinophils # 0.1 Basophils # 0.0 Platelet Estimate Normal Immature Plt Fraction 1.6 PT INR APTT ABG pH ABG pCO2 ABG pO2 ABG HCO3 ABG Total CO2 ABG O2 Saturation ABG Base Excess Blood Gas Modality Inspired O2 Sodium 126 L Potassium 5.1 H Chloride 97 L Carbon Dioxide 22 BUN 20 Creatinine 1.06 Est GFR ( Amer) > 60 Est GFR (Non-Af Amer) > 60 BUN/Creatinine Ratio 19 Glucose 265 H POC Glucose Calculated Osmolality 274 L Lactic Acid Calcium 7.8 L Magnesium Total Bilirubin Direct Bilirubin Indirect Bilirubin AST ALT Alkaline Phosphatase Serum Total Protein Albumin Globulin Albumin/Globulin Ratio Specimen Rejected Labelling Blood Type Antibody Screen Crossmatch 06/28/16 06/28/16 06/28/16 01:29 01:25 00:37 WBC RBC Hgb Hct MCV MCH MCHC RDW Plt Count MPV Immature Gran % Seg Neutrophils % Lymphocytes % Monocytes % Eosinophils % Basophils % Neutrophils # Lymphocytes # Monocytes # Eosinophils # Basophils # Platelet Estimate Immature Plt Fraction PT INR APTT ABG pH 7.45 ABG pCO2 36 ABG pO2 47 L* ABG HCO3 25.0 ABG Total CO2 26.1 H ABG O2 Saturation 85 L ABG Base Excess 0.9 Blood Gas Modality [place] Inspired O2 32 Sodium Potassium Chloride Carbon Dioxide BUN Creatinine Est GFR ( Amer) Est GFR (Non-Af Amer) BUN/Creatinine Ratio Glucose POC Glucose 188 H Calculated Osmolality Lactic Acid Calcium Magnesium Total Bilirubin Direct Bilirubin Indirect Bilirubin AST ALT Alkaline Phosphatase Serum Total Protein Albumin Globulin Albumin/Globulin Ratio Specimen Rejected Blood Type O POSITIVE Antibody Screen NEGATIVE Crossmatch See Detail 06/28/16 06/28/16 06/28/16 00:20 00:20 00:03 WBC 5.7 RBC 2.31 L Hgb 6.5 L D Hct 19.7 L MCV 85.3 MCH 28.1 MCHC 33.0 RDW 13.2 Plt Count 274 MPV 9.1 L Immature Gran % 0.4 Seg Neutrophils % 71.0 Lymphocytes % 14.1 Monocytes % 13.6 Eosinophils % 0.7 Basophils % 0.2 Neutrophils # 4.0 Lymphocytes # 0.8 Monocytes # 0.8 Eosinophils # 0.0 Basophils # 0.0 Platelet Estimate Immature Plt Fraction PT INR APTT ABG pH ABG pCO2 ABG pO2 ABG HCO3 ABG Total CO2 ABG O2 Saturation ABG Base Excess Blood Gas Modality Inspired O2 Sodium 128 L Potassium 5.2 H Chloride 98 Carbon Dioxide 22 BUN 19 Creatinine 0.94 Est GFR ( Amer) > 60 Est GFR (Non-Af Amer) > 60 BUN/Creatinine Ratio 20 Glucose 139 H POC Glucose 126 H Calculated Osmolality 271 L Lactic Acid Calcium 7.8 L Magnesium 1.4 L Total Bilirubin Direct Bilirubin Indirect Bilirubin AST ALT Alkaline Phosphatase Serum Total Protein Albumin Globulin Albumin/Globulin Ratio Specimen Rejected Blood Type Antibody Screen Crossmatch 06/27/16 06/27/16 20:53 20:05 WBC RBC Hgb Hct MCV MCH MCHC RDW Plt Count MPV Immature Gran % Seg Neutrophils % Lymphocytes % Monocytes % Eosinophils % Basophils % Neutrophils # Lymphocytes # Monocytes # Eosinophils # Basophils # Platelet Estimate Immature Plt Fraction PT 16.6 H INR 1.5 APTT 35.4 ABG pH ABG pCO2 ABG pO2 ABG HCO3 ABG Total CO2 ABG O2 Saturation ABG Base Excess Blood Gas Modality Inspired O2 Sodium Potassium Chloride Carbon Dioxide BUN Creatinine Est GFR ( Amer) Est GFR (Non-Af Amer) BUN/Creatinine Ratio Glucose POC Glucose 148 H Calculated Osmolality Lactic Acid Calcium Magnesium Total Bilirubin Direct Bilirubin Indirect Bilirubin AST ALT Alkaline Phosphatase Serum Total Protein Albumin Globulin Albumin/Globulin Ratio Specimen Rejected Blood Type Antibody Screen Crossmatch - Impressions ITS Impressions Chest X-Ray 06/27/16 19:55 IMPRESSION: Significant interval increase in size of a left pleural effusion. D/ / Blayne Silver MD / Blayne Silver MD Interpreting Provider: Blayne Silver MD Chest X-Ray 06/28/16 02:10 IMPRESSION: 1. Endotracheal tube 2.8 cm above the kalia. 2. Worsening congestive heart failure. D/ / Modesto Matta MD / Modesto Matta MD Interpreting Provider: Modesto Matta MD X-Ray 06/28/16 02:11 IMPRESSION: 1. Nasogastric tube terminating in the gastric body. D/ / Modesto Matta MD / Modesto Matta MD Interpreting Provider: Modesto Matta MD Chest X-Ray 06/28/16 09:45 IMPRESSION: Interval evacuation of left pleural effusion following chest tube placement, without pneumothorax. Unchanged mild cardiomegaly and pulmonary edema. Mild bibasilar opacities most likely represent atelectasis. D/ / 06/28/2016 10:51:45 Madhu Jurado MD / amaris Interpreting Provider: Madhu Jurado MD Date of admission: 06/27/16 23:23 Primary care physician: Micheal Silver MD Consults: 06/27/16 19:22 Consult to Nutrition [CONS] Routine Comment: Consulting Provider: NUTRITION Reason for Dietary Consult: MST Score Consult to Ticket [employer]sembler [CONS] Routine Reason for SW Consult: Came from [facility] in [place] 06/27/16 19:45 Consult to Cardiothoracic Surgery [CONS] Stat Consulting Provider: Cardiothoracic Surgery [place] Reason for Consult: Sternal wound dehisence, wound vac displacement, L pleural effusion Time Notified: 19:47 Call Completed: Yes 06/27/16 19:54 Consult to Interventional Radiology [CONS] Routine Consulting Provider: Radiology Interventional [place] Reason for Consult: L thoracentensis Call Completed: No 06/27/16 20:03 Consult to Wound Care [CONS] Stat Reason for Consult: Displaced/Non-functioning sternal wound vac Call Completed: No 06/28/16 01:15 Consult to Physician [CONS] Routine Consulting Provider: Cailin Davis Reason for Consult: Sternotomy wound dehiscence Time Notified: 23:55 Call Completed: Yes Consult to Physician [CONS] Routine Consulting Provider: Esvin Jones Reason for Consult: ICU management Call Completed: No Discharging clinician: Esvin Jones (Rocio Del Rosario) Anticipated date of discharge: 06/28/16 - Patient Status Disposition: Transfer Critical Access Hosp Condition: Critical Functional capacity at discharge: bed bound Overall status at discharge: patient is not back to baseline - Discharge Instructions Follow Up With: Micheal Silver MD [Primary Care Provider] - - Diet and Activity Activity: other (As per cardiothoracic surgeon recommendation.) Diet: other - Hospital Course Hospital course: Mr. Dempsey is a 50 year old male with a past medical history of diabetes, dyslipidemia, hypertension, CHF, COPD, coronary artery disease status post CABG 2 discharged on 06/22/16 nursing facility with sternal wound VAC due to a sternal wound dehiscence. While eating dinner patient apparently began choking/ coughing to dislodge corn. After that time patient noted that his wound VAC it stopped working and was apparently leaking. The following morning on 06/27/16 patient developed difficulty breathing and was taken to [place] for further workup. At [place] he was noted to have decreased oxygen saturation and tachycardia. Laboratory results revealed that patient had stable anemia, hyperkalemia, troponin of 0.08, EKG demonstrated sinus tachycardia and chest x- ray demonstrated a large pleural effusion patient was transferred to [place] for further management. Patient was admitted to [address] [place] [address] to [facility]. Overnight, patient became minimally responsive, hypotensive 50/30 . Patient was intubated and placed on ventilator for persistent hypoxemia and inability to protect airway. A right femoral CVC was placed for access. Patient was placed on pressor support with norepinephrine. Blood cultures were drawn for suspicion of sepsis; vancomycin and Levaquin started. Blood transfusion of 2 units packed red blood cells due to hemoglobin of 6.5. correction of electrolytes. Dr. Davis saw the patient this morning and placed a chest tube; chest x-ray demonstrated evacuation of left pleural effusion following chest tube placement without pneumothorax. Patient will be transferred to [facility] for flap/cardiothoracic surgery. - Time Spent with Patient Total time spent providing and/or coordinating discharge services: Physical Examination Vital Signs: Vital Signs, Last 4 Hours Temp Pulse Resp BP Pulse Ox 06/28/16 10:27 18 87/55 100 06/28/16 10:05 85 06/28/16 10:00 85 15 102/63 100 06/28/16 09:00 85 15 103/63 100 06/28/16 08:23 15 105/65 100 06/28/16 08:00 85 15 101/62 100 06/28/16 07:50 97.7 F <Esvin Jones - Last Filed: 06/28/16 16:44> Labs on day of discharge: Labs from last 24 hours 06/28/16 06/28/16 06/28/16 15:18 13:15 11:39 WBC 4.3 RBC 2.88 L Hgb 8.2 L Hct 25.0 L MCV 86.8 MCH 28.5 MCHC 32.8 RDW 13.8 Plt Count 274 MPV 9.2 L Immature Gran % 0.2 Seg Neutrophils % 57.5 Lymphocytes % 21.7 Monocytes % 14.8 Eosinophils % 5.3 Basophils % 0.5 Neutrophils # 2.5 Lymphocytes # 0.9 Monocytes # 0.6 Eosinophils # 0.2 Basophils # 0.0 Platelet Estimate Immature Plt Fraction PT INR APTT ABG pH ABG pCO2 ABG pO2 ABG HCO3 ABG Total CO2 ABG O2 Saturation ABG Base Excess Blood Gas Modality Inspired O2 Sodium Potassium Chloride Carbon Dioxide BUN Creatinine Est GFR ( Amer) Est GFR (Non-Af Amer) BUN/Creatinine Ratio Glucose POC Glucose 136 H 178 H Calculated Osmolality Lactic Acid Calcium Magnesium Total Bilirubin Direct Bilirubin Indirect Bilirubin AST ALT Alkaline Phosphatase Serum Total Protein Albumin Globulin Albumin/Globulin Ratio Specimen Rejected Blood Type Antibody Screen Crossmatch 06/28/16 06/28/16 06/28/16 08:19 03:28 03:25 WBC RBC Hgb Hct MCV MCH MCHC RDW Plt Count MPV Immature Gran % Seg Neutrophils % Lymphocytes % Monocytes % Eosinophils % Basophils % Neutrophils # Lymphocytes # Monocytes # Eosinophils # Basophils # Platelet Estimate Immature Plt Fraction PT INR APTT ABG pH 7.27 L D ABG pCO2 50 H ABG pO2 259 H ABG HCO3 23.0 ABG Total CO2 24.5 ABG O2 Saturation 100 H ABG Base Excess -4.2 L Blood Gas Modality ASSIST CONTROL Inspired O2 100 Sodium Potassium Chloride Carbon Dioxide BUN Creatinine Est GFR ( Amer) Est GFR (Non-Af Amer) BUN/Creatinine Ratio Glucose POC Glucose 214 H 290 H Calculated Osmolality Lactic Acid Calcium Magnesium Total Bilirubin Direct Bilirubin Indirect Bilirubin AST ALT Alkaline Phosphatase Serum Total Protein Albumin Globulin Albumin/Globulin Ratio Specimen Rejected Blood Type Antibody Screen Crossmatch 06/28/16 06/28/16 06/28/16 02:45 02:45 02:45 WBC RBC Hgb Hct MCV MCH MCHC RDW Plt Count MPV Immature Gran % Seg Neutrophils % Lymphocytes % Monocytes % Eosinophils % Basophils % Neutrophils # Lymphocytes # Monocytes # Eosinophils # Basophils # Platelet Estimate Immature Plt Fraction PT INR APTT 36.0 ABG pH ABG pCO2 ABG pO2 ABG HCO3 ABG Total CO2 ABG O2 Saturation ABG Base Excess Blood Gas Modality Inspired O2 Sodium Potassium Chloride Carbon Dioxide BUN Creatinine Est GFR ( Amer) Est GFR (Non-Af Amer) BUN/Creatinine Ratio Glucose POC Glucose Calculated Osmolality Lactic Acid 1.1 Calcium Magnesium Total Bilirubin 0.5 Direct Bilirubin 0.3 Indirect Bilirubin 0.2 AST 18 ALT 15 Alkaline Phosphatase 85 Serum Total Protein 4.9 L Albumin 1.5 L Globulin 3.4 Albumin/Globulin Ratio 0.4 L Specimen Rejected Blood Type Antibody Screen Crossmatch 06/28/16 06/28/16 06/28/16 02:45 02:45 02:30 WBC 6.0 RBC 2.58 L Hgb 7.3 L Hct 22.4 L MCV 86.8 MCH 28.3 MCHC 32.6 RDW 13.3 Plt Count 363 MPV 9.0 L Immature Gran % 0.3 Seg Neutrophils % 74.2 Lymphocytes % 13.1 Monocytes % 11.3 Eosinophils % 0.8 Basophils % 0.3 Neutrophils # 4.5 Lymphocytes # 0.8 Monocytes # 0.7 Eosinophils # 0.1 Basophils # 0.0 Platelet Estimate Normal Immature Plt Fraction 1.6 PT INR APTT ABG pH ABG pCO2 ABG pO2 ABG HCO3 ABG Total CO2 ABG O2 Saturation ABG Base Excess Blood Gas Modality Inspired O2 Sodium 126 L Potassium 5.1 H Chloride 97 L Carbon Dioxide 22 BUN 20 Creatinine 1.06 Est GFR ( Amer) > 60 Est GFR (Non-Af Amer) > 60 BUN/Creatinine Ratio 19 Glucose 265 H POC Glucose Calculated Osmolality 274 L Lactic Acid Calcium 7.8 L Magnesium Total Bilirubin Direct Bilirubin Indirect Bilirubin AST ALT Alkaline Phosphatase Serum Total Protein Albumin Globulin Albumin/Globulin Ratio Specimen Rejected Labelling Blood Type Antibody Screen Crossmatch 06/28/16 06/28/16 06/28/16 01:29 01:25 00:37 WBC RBC Hgb Hct MCV MCH MCHC RDW Plt Count MPV Immature Gran % Seg Neutrophils % Lymphocytes % Monocytes % Eosinophils % Basophils % Neutrophils # Lymphocytes # Monocytes # Eosinophils # Basophils # Platelet Estimate Immature Plt Fraction PT INR APTT ABG pH 7.45 ABG pCO2 36 ABG pO2 47 L* ABG HCO3 25.0 ABG Total CO2 26.1 H ABG O2 Saturation 85 L ABG Base Excess 0.9 Blood Gas Modality [place] Inspired O2 32 Sodium Potassium Chloride Carbon Dioxide BUN Creatinine Est GFR ( Amer) Est GFR (Non-Af Amer) BUN/Creatinine Ratio Glucose POC Glucose 188 H Calculated Osmolality Lactic Acid Calcium Magnesium Total Bilirubin Direct Bilirubin Indirect Bilirubin AST ALT Alkaline Phosphatase Serum Total Protein Albumin Globulin Albumin/Globulin Ratio Specimen Rejected Blood Type O POSITIVE Antibody Screen NEGATIVE Crossmatch See Detail 06/28/16 06/28/16 06/28/16 00:20 00:20 00:03 WBC 5.7 RBC 2.31 L Hgb 6.5 L D Hct 19.7 L MCV 85.3 MCH 28.1 MCHC 33.0 RDW 13.2 Plt Count 274 MPV 9.1 L Immature Gran % 0.4 Seg Neutrophils % 71.0 Lymphocytes % 14.1 Monocytes % 13.6 Eosinophils % 0.7 Basophils % 0.2 Neutrophils # 4.0 Lymphocytes # 0.8 Monocytes # 0.8 Eosinophils # 0.0 Basophils # 0.0 Platelet Estimate Immature Plt Fraction PT INR APTT ABG pH ABG pCO2 ABG pO2 ABG HCO3 ABG Total CO2 ABG O2 Saturation ABG Base Excess Blood Gas Modality Inspired O2 Sodium 128 L Potassium 5.2 H Chloride 98 Carbon Dioxide 22 BUN 19 Creatinine 0.94 Est GFR ( Amer) > 60 Est GFR (Non-Af Amer) > 60 BUN/Creatinine Ratio 20 Glucose 139 H POC Glucose 126 H Calculated Osmolality 271 L Lactic Acid Calcium 7.8 L Magnesium 1.4 L Total Bilirubin Direct Bilirubin Indirect Bilirubin AST ALT Alkaline Phosphatase Serum Total Protein Albumin Globulin Albumin/Globulin Ratio Specimen Rejected Blood Type Antibody Screen Crossmatch 06/27/16 06/27/16 20:53 20:05 WBC RBC Hgb Hct MCV MCH MCHC RDW Plt Count MPV Immature Gran % Seg Neutrophils % Lymphocytes % Monocytes % Eosinophils % Basophils % Neutrophils # Lymphocytes # Monocytes # Eosinophils # Basophils # Platelet Estimate Immature Plt Fraction PT 16.6 H INR 1.5 APTT 35.4 ABG pH ABG pCO2 ABG pO2 ABG HCO3 ABG Total CO2 ABG O2 Saturation ABG Base Excess Blood Gas Modality Inspired O2 Sodium Potassium Chloride Carbon Dioxide BUN Creatinine Est GFR ( Amer) Est GFR (Non-Af Amer) BUN/Creatinine Ratio Glucose POC Glucose 148 H Calculated Osmolality Lactic Acid Calcium Magnesium Total Bilirubin Direct Bilirubin Indirect Bilirubin AST ALT Alkaline Phosphatase Serum Total Protein Albumin Globulin Albumin/Globulin Ratio Specimen Rejected Blood Type Antibody Screen Crossmatch - Impressions ITS Impressions Chest X-Ray 06/27/16 19:55 IMPRESSION: Significant interval increase in size of a left pleural effusion. D/ / Blayne Silver MD / Blayne Silver MD Interpreting Provider: Blayne Silver MD Chest X-Ray 06/28/16 02:10 IMPRESSION: 1. Endotracheal tube 2.8 cm above the kalia. 2. Worsening congestive heart failure. D/ / Modesto Matta MD / Modesto Matta MD Interpreting Provider: Modesto Matta MD X-Ray 06/28/16 02:11 IMPRESSION: 1. Nasogastric tube terminating in the gastric body. D/ / Modesto Matta MD / Modesto Matta MD Interpreting Provider: Modesto Matta MD Chest X-Ray 06/28/16 09:45 IMPRESSION: Interval evacuation of left pleural effusion following chest tube placement, without pneumothorax. Unchanged mild cardiomegaly and pulmonary edema. Mild bibasilar opacities most likely represent atelectasis. D/ / 06/28/2016 10:51:45 Madhu Jurado MD / amaris Interpreting Provider: Madhu Jurado MD Date of admission: 06/27/16 23:23 Primary care physician: Micheal Silver MD Consults: 06/27/16 19:22 Consult to Nutrition [CONS] Routine Comment: Consulting Provider: NUTRITION Reason for Dietary Consult: MST Score Consult to Ticket [employer]sembler [CONS] Routine Reason for SW Consult: Came from [facility] in [place] 06/27/16 19:45 Consult to Cardiothoracic Surgery [CONS] Stat Consulting Provider: Cardiothoracic Surgery [place] Reason for Consult: Sternal wound dehisence, wound vac displacement, L pleural effusion Time Notified: 19:47 Call Completed: Yes 06/27/16 19:54 Consult to Interventional Radiology [CONS] Routine Consulting Provider: Radiology Interventional Cols Reason for Consult: L thoracentensis Call Completed: No 06/27/16 20:03 Consult to Wound Care [CONS] Stat Reason for Consult: Displaced/Non-functioning sternal wound vac Call Completed: No 06/28/16 01:15 Consult to Physician [CONS] Routine Consulting Provider: Cailin Davis Reason for Consult: Sternotomy wound dehiscence Time Notified: 23:55 Call Completed: Yes Consult to Physician [CONS] Routine Consulting Provider: Esvin Jones Reason for Consult: ICU management Call Completed: No - Hospital Course Hospital course: Mr. Dempsey is a 50 year old male - Time Spent with Patient Total time spent providing and/or coordinating discharge services: Physical Examination Vital Signs: Vital Signs, Last 4 Hours Temp Pulse Resp BP Pulse Ox 06/28/16 15:52 97.9 F 06/28/16 15:35 63 06/28/16 15:00 85 17 129/78 99 06/28/16 14:23 17 102/58 99 06/28/16 14:00 85 17 101/59 99 06/28/16 13:00 63 16 98/58 100 - Attending Attestation Attending addendum: The patient was seen and examined with the house staff. I agree with the resident note with the following addendum: 1. Acute respiratory failure 2. Shock 3. Pleural effusion 4. Sternal wound dehiscence 50-year-old white male with a history of coronary artery disease status post CABG presents with sternal wound dehiscence complicated by acute respiratory failure and shock. The patient was transiently hypotensive after intubation, but this has resolved. Lactic acid is normal and there are no signs of hypoperfusion. He was intubated overnight for airway protection we will continue full vent support. Discussed with Dr. Davis from cardiothoracic surgery, he is recommending transferred to [facility] for evaluation for a wound flap for the sternal wound dehiscence. A chest tube was placed by Dr. Davis for the enlarging left-sided pleural effusion. Stable for transfer from a critical care standpoint.
[2016-06-28] MEDS ORDERED: Insulin LISPRO 300 UNITS/3 ML VIAL SQ SCH (12:00)
[2016-06-28] MEDS: Insulin LISPRO 300 UNITS/3 ML VIAL SQ SCH ×2 (13:09→17:55)
[2016-06-28 13:42] LABS: Basophils % 0.5 %; Eosinophils # 0.2 K/mcL (0.0-0.6); Eosinophils % 5.3 %; Hemoglobin 8.2 g/dL (12.9-16.9); Immature Granulocytes % 0.2 % (0-4); Lymphocytes # 0.9 K/mcL (0.6-4.6); Lymphocytes % 21.7 %; Mean Corpuscular HGB Conc 32.8 g/dL (31.6-35.5); Mean Corpuscular Hemoglobin 28.5 pg (28.0-33.3); Mean Corpuscular Volume 86.8 fL (83.0-100.0); Mean Platelet Volume 9.2 fL (9.4-12.4); Monocytes # 0.6 K/mcL (0.0-1.3); Monocytes % 14.8 %; Neutrophils # 2.5 K/mcL (1.6-8.9); Platelet Count 274 K/mcL (140-400); Red Blood Count 2.88 M/mcL (4.19-5.50); Red Cell Distribution Width 13.8 % (11.5-14.5); Segmented Neutrophils % 57.5 %
--- NOTE | 2016-06-28 14:14 | Cardiothoracic Consult Note ---
Date of Encounter: 06/28/16 Time of Encounter: 07:22 Assessment and Plan (1) Pleural effusion Current Visit: Yes Status: Acute Patient is a 50-year-old type II diabetic, hypertensive man, with hypercholesterolemia underwent CABG 2 on July 05, 2015. His postoperative course was complicated by sternal dehiscence which required his readmission from home. He underwent sternal rewiring and wound VAC application. He was discharged to an extended care facility and experienced an aspiration episode while eating dinner. This resulted in a vigorous coughing episode and the patient was reevaluated at [facility]. Although the patient' s oxygen saturation was 97%, a chest x-ray showed a large left pleural effusion and the patient was admitted for drainage of the pleural effusion and wound care. The wound VAC was changed this morning since it could not maintain a seal. During the resting change the patient was noted to have dehisced his sternal wound again. The sternal wires had pulled through both sides of the sternum. The patient will require a pectoralis major muscle flap closure of the sternotomy incision. This procedure will require a plastic surgical team and the patient will need to be transferred to a tertiary [facility] with this capability. I discussed this with the intensive care physician and he will help facilitate a transfer to [facility]. I will place a left chest tube to drain the pleural effusion. The assessment and plan as outlined above was discussed with the patient and/or family members who expressed understanding and agreement. All questions were answered. - History of Present Illness Consult date: 06/27/16 Requesting physician: Dewayne Hanson Consult reason: Left pleural effusion, unstable sternum Chief complaint: Shortness of breath History of present illness: Mr. Dempsey is a 50 year old type II diabetic, hypertensive, moderately obese man who was admitted to [facility] on May 29, 2016 for an elective cardiac catheterization. The patient had complained of substernal chest tightness, shortness breath, and dyspnea on exertion. Cardiac catheterization at that time revealed severe 3 vessel CAD and LVEF 55%. The patient had been recommended for CABG; however, he had been on Plavix for his previous myocardial infarction. This medication was stopped for 6 days prior to CABG. The patient underwent CABG 2 on June 04, 2016. His postoperative course was uncomplicated and he was transferred to the stepdown unit on POD #1. The patient was ambulating without complaints of substernal chest pain or shortness of breath. He was then discharged home on POD #5. While at home the patient states he did well initially; however, yesterday began having drainage from his sternal incision. He denies any chills or fever. The patient was evaluated at [facility] emergency department and a chest CT revealed sternal dehiscence and a left pleural effusion. He was admitted for sternal reexploration, possible sternal rewiring, and possible wound VAC application. This procedure was performed on June 12, 2016 and the patient was discharged to an extended care facility for wound VAC care on 2016. While at the extended care facility the patient had an aspiration episode while eating dinner and became hypoxic. The patient was transferred to [facility] for evaluation. Although the patient had oxygen saturations of 97 % in the emergency department, a chest x-ray showed a large left pleural effusion. He was admitted for drainage of the pericardial effusion and wound care. The wound VAC was changed earlier this morning and the patient was noted to have a repeat dehiscence of his sternal wound. All the sternal wires which and been placed at the rewiring procedure had pulled through the sternum. The patient again became hypoxic and was transferred to the ICU. He was intubated and sedated. Past Med Surg Social Fam HX - Past Medical History Medical history: arthritis, coronary artery disease, diabetes, hyperlipidemia, hypertension, myocardial infarction, peripheral artery disease Psychiatric history: no psych history - Past Surgical History Surgical History: angioplasty/stent, coronary bypass (CABG), vascular surgery, other (Sternal rewiring with wound VAC application) - Social History Smoking Status: Former smoker Smokeless Tobacco Status: No Alcohol use: none Drug use: none Medications and Allergies Clopidogrel [Plavix] 75 mg PO DAILY 04/21/15 [History] Nicotine Patch [Nicoderm] 21 mg TD DAILY #30 patch.td24 06/09/16 [Rx] Albuterol Sulfate [Albuterol Inhaler] 2 puff IH Q2HR PRN #0 inhaler 06/28/16 [Rx ] Chlorhexidine Rinse 15 ml MM BID mouthwash 06/28/16 [Rx] Dextrose 50 % in Water (Syg) [Dextrose 50% (Syg)] 25 ml IVP AD PRN #0 syringe [Rx] Dextrose Gel [Gluctose] 15 gm PO ONCE PRN #0 gel..gram. 06/28/16 [Rx] Dextrose Gel [Gluctose] 30 gm PO ONCE PRN #0 gel..gram. 06/28/16 [Rx] Glucagon, Human Recombinant [Glucagen] 1 mg IM ONCE PRN #0 vial 06/28/16 [Rx] Heparin 5,000 unit SQ Q8HR vial 06/28/16 [Rx] Insulin LISPRO [HumaLOG] 0 units SQ Q6HR vial 06/28/16 [Rx] Lacri-Lube [Lacri-lube] 1 appl BOTH EYES Q2HR PRN #0 tube 06/28/16 [Rx] Lacri-Lube [Lacri-lube] 1 appl BOTH EYES Q4HR tube 06/28/16 [Rx] Naloxone [Narcan] 0.4 mg IVP Q2MIN PRN #0 inj 06/28/16 [Rx] Ondansetron [Zofran] 4 mg IVP Q8HR PRN #0 vial 06/28/16 [Rx] Pantoprazole [Protonix] 40 mg IVP DAILY vial 06/28/16 [Rx] Rocuronium Maidens [Zemuron] 55 mg IVP Q4H PRN #0 vial 06/28/16 [Rx] Allergies Amoxicillin Allergy (Verified 06/11/16 19:10) Anaphylaxis ampicillin Allergy (Verified 06/11/16 19:10) Anaphylaxis Penicillins [PCN] Allergy (Verified 06/11/16 19:10) Anaphylaxis All Systems Review: A 10-system review of systems was performed and is negative for pertinent findings except as documented above in the HPI. Physical Examination Vital Signs, Last 4 Hours Temp Pulse Resp BP Pulse Ox 06/28/16 13:00 63 16 98/58 100 06/28/16 12:20 16 100/51 100 06/28/16 12:00 62 16 100/61 100 06/28/16 11:55 63 18 111/69 100 06/28/16 11:30 98.6 F 06/28/16 10:27 18 87/55 100 General: No Apparent Distress, Other (Intubated and sedated.) HEENT: Atraumatic, Normocephaly, Trachea midline Neck: No JVD, Normal carotid pulses Cardiac: Reg Rate and Rhythm, Normal S1 and S2, No Murmur Lungs: Normal Breath Sounds (Right lung romo), Decreased breath sounds (Left lung romo.) Vascular: Normal capillary refill Extremities: No Clubbing, No Cyanosis, No Edema Results 06/28/16 13:15 06/28/16 02:45 Lab Results, Last 24 hours 06/27/16 06/28/16 06/28/16 20:05 00:20 00:20 WBC 5.7 Hgb 6.5 L D Hct 19.7 L Plt Count 274 INR 1.5 APTT 35.4 Sodium 128 L Potassium 5.2 H Chloride 98 Carbon Dioxide 22 BUN 19 Creatinine 0.94 Glucose 139 H Calcium 7.8 L Magnesium 1.4 L Total Bilirubin AST ALT Alkaline Phosphatase 06/28/16 06/28/16 06/28/16 02:45 02:45 02:45 WBC 6.0 Hgb 7.3 L Hct 22.4 L Plt Count 363 INR APTT 36.0 Sodium 126 L Potassium 5.1 H Chloride 97 L Carbon Dioxide 22 BUN 20 Creatinine 1.06 Glucose 265 H Calcium 7.8 L Magnesium Total Bilirubin AST ALT Alkaline Phosphatase 06/28/16 06/28/16 02:45 13:15 WBC 4.3 Hgb 8.2 L Hct 25.0 L Plt Count 274 INR APTT Sodium Potassium Chloride Carbon Dioxide BUN Creatinine Glucose Calcium Magnesium Total Bilirubin 0.5 AST 18 ALT 15 Alkaline Phosphatase 85 - Imaging Chest Xray: image reviewed (Large left pleural effusion.) Consult Discharge Plan - Plan Referrals: Micheal Silver MD [Primary Care Provider] -
--- NOTE | 2016-06-28 14:30 | Operative Note ---
Date of procedure: 06/28/16 Pre-op diagnosis: Left pleural effusion Post-op diagnosis: same Procedure: 1. Left chest tube insertion. Implants: 1. #32 Fij[place] chest tube. Complications: None. Anesthesia: local Local Anesthetics: 1% Lidocaine HCL SubQ (cc) (5ml) Surgeon: Cailin Davis Estimated blood loss (cc): 5 Specimen: None. Condition: stable Disposition: ICU Procedure in Detail: INDICATIONS FOR PROCEDURE: The patient is a 50-year-old type II diabetic, hypertensive man, with hypercholesterolemia underwent CABG 2 on July 05, 2015. His postoperative course was complicated by sternal dehiscence which required his readmission from home. He underwent sternal rewiring and wound VAC application. He was discharged to an extended care facility and experienced an aspiration episode while eating dinner. This resulted in a vigorous coughing episode and the patient was reevaluated at [facility]. Although the patient' s oxygen saturation was 97%, a chest x-ray showed a large left pleural effusion and the patient was admitted for drainage of the pleural effusion and wound care. FINDINGS AT PROCEDURE: The patient had approximately 1000 mL of turbid fluid within the left pleural space. DESCRIPTION OF PROCEDURE: After obtaining informed consent from the patient's personal financial representative, the patient was positioned in the right lateral decubitus position and his left lateral chest was prepped and draped in a sterile fashion. Lidocaine, 1% without epinephrine (5 mL) was used to anesthetize the skin and subcutaneous tissue and a lower left lateral intercostal space. An incision was then made through the skin and subcutaneous tissue and a hemostat was used to bluntly dissect the remaining tissue to the level of the ribs. A lower intercostal space was then entered and the opening was enlarged with a Janice clamp. A 32 Fijian chest tube was inserted posteriorly with drainage of approximately 1000 mL of a turbid yellow fluid. The chest tube was secured to the skin with 2-0 silk suture. The chest tube was then dressed with gauze sponges. Chest x-ray showed good position of the chest tube with drainage of the pleural effusion. The patient tolerated the procedure without complications.
[2016-06-28] MEDS: Aspirin 81 MG TAB.CHEW PO SCH (21:07)
[2016-06-29] MEDS: Insulin LISPRO 300 UNITS/3 ML VIAL SQ SCH ×4 (00:32→17:12)
[2016-06-29] MEDS: *HR* Heparin 5,000 UNIT/ML VIAL SQ SCH ×3 (00:32→15:01)
[2016-06-29] MEDS: Lacri-Lube 3.5 GM TUBE BOTH EYES SCH ×5 (00:32→15:00)
[2016-06-29] MEDS: Vancomycin 1,750 MG in D5% in Water 500 ML IVPB SCH ×2 (03:02→12:28)
[2016-06-29] MEDS: Norepinephrine 4 MG in D5% in Water 250 ML IVC SCH (04:01)
[2016-06-29] MEDS: FentaNYL (PF) 1,000 MCG in 0.9 % Sodium Chloride 80 ML IVC SCH ×4 (04:02→17:34)
[2016-06-29 05:35] LABS: ABG Base Excess -2.9 mEq/L (-2.0 to 3.0); ABG HCO3 21.9 mEQ/L (21-27); ABG Oxygen Saturation 95 % (95-98); ABG PCO2 37 mmHg (35-45); ABG PH 7.38 pH Units (7.32-7.45); ABG PO2 75 mmHg (85-104); Blood Gas FiO2 30 %
[2016-06-29 07:01] LABS: Basophils % 0.4 %; Eosinophils # 0.3 K/mcL (0.0-0.6); Eosinophils % 6.4 %; Hemoglobin 8.8 g/dL (12.9-16.9); Immature Granulocytes % 0.2 % (0-4); Lymphocytes # 0.7 K/mcL (0.6-4.6); Mean Corpuscular HGB Conc 32.6 g/dL (31.6-35.5); Mean Corpuscular Hemoglobin 28.7 pg (28.0-33.3); Mean Corpuscular Volume 87.9 fL (83.0-100.0); Mean Platelet Volume 8.8 fL (9.4-12.4); Monocytes # 0.5 K/mcL (0.0-1.3); Monocytes % 11.3 %; Platelet Count 302 K/mcL (140-400); Red Blood Count 3.07 M/mcL (4.19-5.50); Red Cell Distribution Width 13.8 % (11.5-14.5); Segmented Neutrophils % 66.7 %
[2016-06-29 07:08] LABS: Ionized Calcium 1.16 mmol/L (1.15-1.35)
[2016-06-29 07:17] LABS: Alanine Aminotransferase 13 Units/L (0-55); Albumin/Globulin Ratio 0.3 (1.1-2.2); Alkaline Phosphatase 93 Units/L (38-126); Aspartate Amino Transferase 12 Units/L (5-34); BUN/Creatinine Ratio 10 (6-26); Bilirubin,Total 0.4 mg/dL (0.2-1.2); Calcium 8.1 mg/dL (8.6-10.8); Carbon Dioxide 20 mEq/L (19-29); Chloride 104 mEq/L (98-109); Globulin 3.6 g/dL (2.4-3.5); Glucose 185 mg/dL (70-99); Magnesium 1.4 mg/dL (1.6-2.6); Osmolality,Calculated 277 (280-300); Phosphorous 3.7 mg/dL (2.3-4.7); Potassium 4.5 mEq/L (3.5-4.5); Sodium 132 mEq/L (136-145); Total Protein 4.8 g/dL (6.0-8.3); eGFR For African Americans > 60 (> 60); eGFR For Non-African Americans > 60 (> 60)
[2016-06-29 07:18] LABS: Albumin 1.2 g/dL (3.5-5.0); Blood Urea Nitrogen 7 mg/dL (8-26)
[2016-06-29] MEDS ORDERED: Magnesium Sulfate 2 GM in D5% in Water 100 ML IVPB ONE (07:35)
[2016-06-29] MEDS: 0.9 % Sodium Chloride 1,000 ML IVC SCH (07:47)
[2016-06-29] MEDS: Chlorhexidine Rinse 15 ML MOUTHWASH MM SCH (07:49)
[2016-06-29] MEDS: Pantoprazole 40 MG VIAL IVP SCH (07:49)
[2016-06-29] MEDS: Gabapentin 400 MG CAPSULE PO SCH ×2 (07:50→14:00)
[2016-06-29] MEDS: Levofloxacin 750 MG/150 ML 750 MG/150 ML BAG IVPB SCH (07:50)
[2016-06-29] MEDS: Nicotine 21 MG PATCH.TD24 TD SCH (07:51)
--- NOTE | 2016-06-29 07:54 | Pulmonology Progress Note ---
Date of Encounter: 06/29/16 Time of Encounter: 07:51 Assessment and Plan (1) Acute respiratory failure with hypoxia Current Visit: Yes Status: Acute Acute respiratory failure in setting of chronic COPD secondary to possible aspiration vs surgical complication. Continue ventilator management. PEEP 5, FiO2 30%, Rate 14. Patient is not arousable while sedated on vent. Continue antibiotics Levaquin and Vancomycin Left Chest tube placed yesterday to suction for pleural effusion and compressive atelectasis. Transfer to [facility] accepted, waiting on bed placement. (2) Septic shock Current Visit: Yes Status: Acute Septic shock of unclear etiology. Vitals stable overnight, bp 98-119/61. Continue with pressors. (3) Pleural effusion Current Visit: Yes Status: Acute Left Chest tube placed yesterday, to suction. (4) Sternal wound dehiscence Current Visit: Yes Status: Acute Wound vac in place. Awaiting transfer to [facility] for evaluation of wound flap. Qualifiers: Encounter type: subsequent encounter Qualified Code(s): T81.32XD - Disruption of internal operation (surgical) wound, not elsewhere classified, subsequent encounter (5) CHF (congestive heart failure) Current Visit: Yes Status: Chronic Qualifiers: Congestive heart failure type: systolic Congestive heart failure chronicity : chronic Qualified Code(s): I50.22 - Chronic systolic (congestive) heart failure (6) COPD (chronic obstructive pulmonary disease) Current Visit: Yes Status: Chronic Qualifiers: COPD type: unspecified COPD Qualified Code(s): J44.9 - Chronic obstructive pulmonary disease, unspecified (7) Coronary artery disease Current Visit: Yes Status: Chronic Qualifiers: Coronary Disease-Associated Artery/Lesion type: [place] artery [place] vs. transplanted heart: [place] heart Associated angina: without angina Qualified Code(s): I25.10 - Atherosclerotic heart disease of [place] coronary artery without angina pectoris (8) Diabetes mellitus Current Visit: Yes Status: Chronic Sliding scale insulin protocol. Qualifiers: Diabetes mellitus type: type 2 Diabetes mellitus complication status: with unspecified complications Diabetes mellitus terminal gauger insulin use: without terminal gauger use Qualified Code(s): E11.8 - Type 2 diabetes mellitus with unspecified complications (9) DVT prophylaxis Current Visit: Yes Status: Acute Heparin for dvt ppx. Subjective Principal diagnosis: Acute Resp Failure, sternal wound dehiscence Interval history: No overnight events, patient sedated intubated on ventilator, no eye movement or extremity movement when prompted. Vent rate 14, PEEP 5, FiO2 30%, Wound vac in place draining serosanguinous fluid , howe in place. Transfer to [facility] accepted, waiting on bed placement at [facility]. Objective PUL Vital signs: Last Vital Signs Temp 99.6 F 06/29/16 04:00 Pulse 71 06/29/16 07:00 Resp 18 06/29/16 07:00 BP 116/57 06/29/16 07:00 Pulse Ox 100 06/29/16 07:00 General appearance: other (sedated and intubated on vent, no eye or extremity movement when prompted) Eyes: nonicteric Neck: supple Effort: normal Auscultation: bilateral: diminished breath sounds, wheezes Cardiovascular: regular rate and rhythm Gastrointestinal: absent bowel sounds, soft, non-distended Integumentary: normal, other (wound vac in place, midsternal. L chest tube in place with suction.) Extremities: no cyanosis, no edema, cool Musculoskeletal: no deformities non-focal exam Ventilator Settings Ventilator Settings: Ventilator Settings, Last 8 Hours Ventilator Mode A/C Ventilator Mode A/C Ventilator Mode A/C Ventilator Mode A/C Ventilator Mode A/C Ventilator Mode A/C Ventilator Mode A/C Ventilator Mode A/C Ventilator Mode A/C Ventilator Mode A/C Ventilator Mode A/C Ventilator Mode A/C Ventilator Tidal Volume 500 Setting Ventilator Tidal Volume 500 Setting Ventilator Tidal Volume 500 Setting Ventilator Tidal Volume 500 Setting Ventilator Tidal Volume 500 Setting Ventilator Tidal Volume 500 Setting Ventilator Tidal Volume 500 Setting Ventilator Tidal Volume 500 Setting Ventilator Tidal Volume 500 Setting Ventilator Tidal Volume 500 Setting Ventilator Tidal Volume 500 Setting Ventilator Tidal Volume 500 Setting Ventilator Respiratory Rate 14 Setting Ventilator Respiratory Rate 14 Setting Ventilator Respiratory Rate 14 Setting Ventilator Respiratory Rate 14 Setting Ventilator Respiratory Rate 14 Setting Ventilator Respiratory Rate 14 Setting Ventilator Respiratory Rate 14 Setting Ventilator Respiratory Rate 14 Setting Ventilator Respiratory Rate 14 Setting Ventilator Respiratory Rate 14 Setting Ventilator Respiratory Rate 14 Setting Ventilator Respiratory Rate 14 Setting Actual Respiratory Rate 18 Actual Respiratory Rate 18 Actual Respiratory Rate 17 Actual Respiratory Rate 17 Actual Respiratory Rate 21 Actual Respiratory Rate 19 Actual Respiratory Rate 19 Actual Respiratory Rate 19 Actual Respiratory Rate 19 Actual Respiratory Rate 19 Actual Respiratory Rate 17 Actual Respiratory Rate 19 Positive End Expiratory 5 Pressure Positive End Expiratory 5 Pressure Positive End Expiratory 5 Pressure Positive End Expiratory 5 Pressure Positive End Expiratory 5 Pressure Positive End Expiratory 5 Pressure Positive End Expiratory 5 Pressure Positive End Expiratory 5 Pressure Positive End Expiratory 5 Pressure Positive End Expiratory 5 Pressure Positive End Expiratory 5 Pressure Positive End Expiratory 5 Pressure Peak Inspiratory Airway 22 Pressure Peak Inspiratory Airway 22 Pressure Peak Inspiratory Airway 21 Pressure Peak Inspiratory Airway 21 Pressure Peak Inspiratory Airway 23 Pressure Peak Inspiratory Airway 23 Pressure Peak Inspiratory Airway 23 Pressure Peak Inspiratory Airway 24 Pressure Peak Inspiratory Airway 24 Pressure Peak Inspiratory Airway 24 Pressure Peak Inspiratory Airway 24 Pressure Peak Inspiratory Airway 24 Pressure Results - Laboratory Findings CBC and BMP: 06/29/16 06:58 06/29/16 06:58 ABG ABG pH 7.38 pH Units (7.32-7.45) 06/29/16 05:30 ABG pCO2 37 mmHg (35-45) 06/29/16 05:30 ABG pO2 75 mmHg (85-104) L 06/29/16 05:30 ABG O2 Saturation 95 % (95-98) 06/29/16 05:30 PT/INR, D-dimer PT 16.6 Seconds (9.4-12.1) H 06/27/16 20:05 Abnormal lab findings: Abnormal lab results RBC 3.07 M/mcL (4.19-5.50) L 06/29/16 06:58 Hgb 8.8 g/dL (12.9-16.9) L 06/29/16 06:58 Hct 27.0 % (37.5-50.1) L 06/29/16 06:58 MPV 8.8 fL (9.4-12.4) L 06/29/16 06:58 PT 16.6 Seconds (9.4-12.1) H 06/27/16 20:05 ABG pO2 75 mmHg (85-104) L 06/29/16 05:30 ABG Base Excess -2.9 mEq/L (-2.0 to 3.0) L 06/29/16 05:30 Sodium 132 mEq/L (136-145) L 06/29/16 06:58 BUN 7 mg/dL (8-26) L D 06/29/16 06:58 Creatinine 0.68 mg/dL (0.72-1.25) L 06/29/16 06:58 Glucose 185 mg/dL (70-99) H 06/29/16 06:58 POC Glucose 143 (58-89) H 06/29/16 04:14 Calculated Osmolality 277 (280-300) L 06/29/16 06:58 Calcium 8.1 mg/dL (8.6-10.8) L 06/29/16 06:58 Magnesium 1.4 mg/dL (1.6-2.6) L 06/29/16 06:58 Serum Total Protein 4.8 g/dL (6.0-8.3) L 06/29/16 06:58 Albumin 1.2 g/dL (3.5-5.0) L 06/29/16 06:58 Globulin 3.6 g/dL (2.4-3.5) H 06/29/16 06:58 Albumin/Globulin Ratio 0.3 (1.1-2.2) L 06/29/16 06:58 - Microbiology Findings Microbiology Findings: Microbiology, Last 48 Hours 06/27/16 23:59 Blood Culture - Preliminary Peripheral Venipuncture No growth. 06/28/16 01:29 Blood Culture - Preliminary Peripheral Venipuncture No growth. - Clinical Findings Intake & Output: Intake & Output 06/28/16 06/28/16 06/29/16 15:59 23:59 07:59 Intake Total 1420 / 1420 2130 / 2130 1921 / 1921 Output Total 1080 / 1080 2180 / 2180 625 / 625 Balance 340 / 340 -50 / -50 1296 / 1296 Weight 92.7 kg Consult Discharge Plan - Plan Referrals: Micheal Silver MD [Primary Care Provider] -
--- NOTE | 2016-06-29 08:23 | Cardiothoracic Progress Note ---
Date of Encounter: 06/29/16 Time of Encounter: 08:20 - Assessment and plan (1) Pleural effusion Current Visit: Yes Status: Acute Patient is a 50-year-old type II diabetic, hypertensive man, with hypercholesterolemia underwent CABG 2 on July 05, 2015. His postoperative course was complicated by sternal dehiscence which required his readmission from home. He underwent sternal rewiring and wound VAC application. He was discharged to an extended care facility and experienced an aspiration episode while eating dinner. This resulted in a vigorous coughing episode and the patient was reevaluated at [facility]. Although the patient' s oxygen saturation was 97%, a chest x-ray showed a large left pleural effusion and the patient was admitted for drainage of the pleural effusion and wound care. The wound VAC was changed this morning since it could not maintain a seal. During the resting change the patient was noted to have dehisced his sternal wound again. The sternal wires had pulled through both sides of the sternum. The patient will require a pectoralis major muscle flap closure of the sternotomy incision. This procedure will require a plastic surgical team and the patient will need to be transferred to a tertiary [facility] with this capability. Currently, the transfer is pending discharge from [facility]. I placed a left chest tube to drain the pleural effusion. The follow-up chest x- ray yesterday showed resolution of the pleural effusion. The chest tube should remain in place for several days to ensure that there is no further drainage. The assessment and plan as outlined above was discussed with the patient and/or family members who expressed understanding and agreement. All questions were answered. - Subjective Interval history: The patient remains intubated and sedated. He is hemodynamically stable. Vital Signs, Last 4 Hours Temp Pulse Resp BP Pulse Ox 06/29/16 08:06 18 100/56 100 06/29/16 07:45 98.5 F 06/29/16 07:00 71 18 116/57 100 06/29/16 06:00 73 17 98/61 100 06/29/16 05:54 17 98/61 100 06/29/16 05:00 72 16 98/61 100 06/29/16 04:34 21 119/61 100 Oxgyen Flow Rate Oxygen Flow Rate (LPM) 5 Weight 06/27/16 06/28/16 06/29/16 23:59 23:59 23:59 Weight 91.4 kg 92.7 kg - Physical Examination General: Other (Intubated and sedated.) Neck: No JVD, Normal carotid pulses Cardiac: Reg Rate and Rhythm, Normal S1 and S2, No Murmur Incision: Other (Wound VAC in place over sternotomy incision.) Chest tubes: Minimal drainage, Other (No air leak.) Lungs: Normal Breath Sounds, No Wheeze, Rales, Rhonchi Vascular: Normal capillary refill Extremities: No Clubbing, No Cyanosis, No Edema - Labs 06/29/16 06:58 06/29/16 06:58 Lab Results, Last 24 hours 06/28/16 06/29/16 06/29/16 13:15 06:58 06:58 WBC 4.3 4.5 Hgb 8.2 L 8.8 L Hct 25.0 L 27.0 L Plt Count 274 302 Sodium 132 L Potassium 4.5 Chloride 104 Carbon Dioxide 20 BUN 7 L D Creatinine 0.68 L Glucose 185 H Calcium 8.1 L Magnesium 1.4 L Total Bilirubin 0.4 AST 12 ALT 13 Alkaline Phosphatase 93 Consult Discharge Plan - Plan Referrals: Micheal Silver MD [Primary Care Provider] -
[2016-06-29 20:02] VITALS: BP 95/57
[2016-06-29] MEDS ORDERED: Aminoglycoside Consult 1 EACH MC ONE (21:04)
== END 2016-06-29 21:05 | disposition critical access hospital (66) | DRG 871 ==
LOC: 2NNU → ICNU 06-28 01:16
PROVIDERS: ADMIT Internal Medicine; ATTEND Internal Medicine

== ENCOUNTER 2017-08-30 20:46 | Observation (INO) ==
--- NOTE | 2017-08-30 22:23 | Internal Med History&Physical ---
<Gita Haile - Last Filed: 08/31/17 00:34> Date of Encounter: 08/31/17 Time of Encounter: 22:21 Assessment and Plan (1) Intractable nausea and vomiting Current visit: Yes Status: Acute Intractable nausea and vomiting, most likely secondary to infectious process, less likely secondary to severe colitis however cannot be excluded as cause. IV fluids Recommend patient remain NPO. However patient adamantly refused and insists on diet. Patient verbalized understanding of risk including dehydration secondary to continued emesis. We will start liquid diet. Patient taking Phenergan at home, without relief to symptoms. Will escalate to Zofran. Serial CBC, BMP Consult GI. Qualifiers: Vomiting type: unspecified Qualified Code(s): R11.2 - Nausea with vomiting , unspecified (2) Hypotension Current visit: No Status: Acute Per family, patient hypotensive at home. Monitor vital signs q4h. Continue IV fluids. Qualifiers: Hypotension type: unspecified hypotension type Qualified Code(s): I95.9 - Hypotension, unspecified (3) Inflammatory bowel disease (ulcerative colitis) Current visit: Yes Status: Acute 07/14/17 pancolitis ulcerative colitis. July 2017 Sigmoidoscopy revealed significant inflammation with associated severe congestion, erosions, erythema, friability, granularity and loss of vascularity in the proximal sigmoid and descending colon with associated shallow ulcerations in the rectum to descending colon. Worsened since previous endoscopies. Pt meets criteria for severe colitis, with Hgb < 10.[address] Joshua Blanchard at [facility] for consideration of colectomy with Pravin 's pouch. Continue to monitor vital signs IV Fluids for hydration CBC, BMP Consult to GI. Qualifiers: Ulcerative colitis location: ulcerative pancolitis Digestive disease complication type: with rectal bleeding Qualified Code(s): K51.011 - Ulcerative (chronic) pancolitis with rectal bleeding (4) Diabetes mellitus Current visit: No Status: Chronic Pt allergic to insulin detemir and glargine. Acchuchecks q6h. HgbA1c. Hypoglycemia protocol ordered. Qualifiers: Diabetes mellitus type: type 2 Diabetes mellitus shelter insulin use: without shelter use Diabetes mellitus complication status: with neurologic complications Diabetes mellitus complication detail: with polyneuropathy Qualified Code(s): E11.42 - Type 2 diabetes mellitus with diabetic polyneuropathy (5) Knee pain, chronic Current visit: Yes Status: Chronic Demonstrates no acute weakness on exam. Full ROM. Continue home medications. Qualifiers: Laterality: bilateral Qualified Code(s): M25.561 - Pain in right knee; M25.562 - Pain in left knee; M25.562 - Pain in left knee; G89.29 - Other chronic pain; G89.29 - Other chronic pain (6) DVT prophylaxis Current visit: Yes Status: Acute Mechanical Prophylaxis with EPCD. Internal Medicine - H&P: HPI Chief complaint: Diarrhea, Nausea Admitted From: Hospital to Hospital Transfer History of present illness: Mr. Walker is a 52 year old male with CAD, DM, HL, and ulcerative presenting for intractable nausea and green-colored, non bloody emesis x 7 days. Pt is status post 2 vessel CABG in 2016, with resultant complication of wound dehiscence associated with staphylococcal infection necessitating a 3 month course of antibiotics. Shortly after completing his course of antibiotics, he developed inflammatory bowel disease. Emesis is post-prandial, after food or water. Pt had 4 episodes of emesis last night and 3 this morning after drinking water. Endorses continued bloody stools, urgency. Denies lower-cramping abdominal pain. No recent travels. No new foods. Endorses hypotensive blood pressures at home, with associated sensation of light-headedness. Past Med Surg Social Fam HX - Past Medical History Medical history: cardiomyopathy, CHF, coronary artery disease, diabetes, hyperlipidemia, myocardial infarction, other Psychiatric history: depression - Past Surgical History Surgical History: angioplasty/stent, coronary bypass (CABG), herniorrhaphy, orthopedic, other, tracheostomy, vascular surgery, other - Social History Smoking Status: Former smoker Smokeless Tobacco Status: No Alcohol use: none Drug use: none Internal Medicine - H&P: Meds Amitriptyline [Elavil] 50 mg PO HS 02/03/17 [History] Aspirin 81 mg PO DAILY 02/03/17 [History] Canagliflozin [Invokana] 300 mg PO DAILY 02/03/17 [History] Diclofenac Sodium [Voltaren] 1 appl TP QID PRN 02/03/17 [History] Dulaglutide [Trulicity] 1.5 mg SQ CENTENO 02/03/17 [History] Gabapentin [Neurontin] 800 mg PO TID 02/03/17 [History] Oxycodone HCl/Acetaminophen [Percocet 10-325 mg Tablet] 1 tab PO QID 02/03/17 [ History] Promethazine [Phenergan] 25 mg PO Q4H PRN 02/03/17 [History] Tizanidine HCl [Zanaflex] 4 mg PO TID PRN 02/03/17 [History] Fluticasone Propionate Nasal [Flonase] 2 spr NS DAILY #0 06/28/17 [History] Cholestyramine (with Sugar) [Cholestyramine Bulk Powder] 1 scoop PO DAILY [History] Ferrous Sulfate [Iron] 325 mg PO DAILY 07/14/17 [History] Metformin HCl [Glucophage] 1,000 mg PO BID 07/14/17 [History] Doxycycline 100 mg PO BID #20 capsule 08/18/17 [Rx] InFLIXimab [Remicade] 10 mg IV AD 08/18/17 [History] Albuterol Sulfate [Ventolin Hfa] 2 puff IH Q6H 08/29/17 [History] Buspirone HCl [Buspar] 15 mg PO BID 08/29/17 [History] Furosemide [Lasix] 40 mg PO DAILY 08/29/17 [History] Atorvastatin Calcium [Lipitor] 40 mg PO DAILY 08/31/17 [History] 3 Allergy/AdvReac Type Severity Reaction Status Date / Time Amoxicillin Allergy Anaphylaxis Verified 09/01/17 11:27 ampicillin Allergy Anaphylaxis Verified 09/01/17 11:27 insulin detemir Allergy Itching Verified 09/01/17 11:27 [From Levemir U-100 Insulin] insulin glargine Allergy Itching Verified 09/01/17 11:27 [From Lantus U-100 Insulin] latex Allergy See Verified 09/01/17 11:27 Comments nitroglycerin Allergy See Verified 09/01/17 11:27 Comments Penicillins [PCN] Allergy Anaphylaxis Verified 09/01/17 11:27 Sulfa (Sulfonamide Allergy See Verified 09/01/17 11:27 Antibiotics) Comments All Systems PM: A 10-system review of systems was performed and is negative for pertinent findings except as documented above in the HPI. - Constitutional Vitals: Vital Signs Temperature 97.8 F 08/30/17 22:27 Pulse Rate 79 08/30/17 22:27 Respiratory Rate 20 08/30/17 22:27 Blood Pressure 112/70 08/30/17 22:27 O2 Sat by Pulse Oximetry 100 08/30/17 22:27 General appearance: Present: A&O X 3, no acute distress Exam: thin - Head Head exam: Present: atraumatic, normocephalic - Respiratory Respiratory exam: Present: CTAB. Absent: accessory muscle use, chest wall tenderness, wheezes - Cardiovascular Cardiovascular exam: Present: RRR, +S1, +S2 - GI/Abdominal GI/Abdominal exam: Present: normal bowel sounds. Absent: guarding, rigid, tenderness, no peritoneal signs - Extremities Exam Extremities exam: Present: full ROM. Absent: calf tenderness, cyanotic, mottling, tenderness Internal Med - H&P Results - EKG Data EKG comments: cc: ; ~ [facility] [address] [place] [address] Road [place] [address] Test Date: 2017-08-26 Pat Name: José Walker Department: [id number] Room: Gender: M Director Clinical Information Services: [id number] : 1965 Requested By: Christiano Uriostegui Order Number: [id number] Reading MD: Dewayne Mares MD Measurements Intervals [place] Rate: 75 P: 5 [place]: 156 QRS: -20 QRSD: 134 T: 128 QT: 392 QTc: 421 Interpretive Statements SINUS RHYTHM LEFT ATRIAL ENLARGEMENT INTRAVENTRICULAR CONDUCTION DELAY INFERIOR MYOCARDIAL INFARCTION, PROBABLY OLD Electronically Signed On 08-27-2017 19:59:51 EDT by Dewayne Mares MD - Impressions Labs reviewed with Dr. Silveira. Labs not automatically populating in [facility]. White count 5.4 RBCs 2.76 Hemoglobin 7.8 Hematocrit 25.3 Platelet count 391 PT 14.1 INR 1.3 Sodium 129 Potassium 3.7 Chloride 93 Carbon dioxide 29 BUN 9 Creatinine 0.92 Estimated GFR > 60 BUN/creatinine ratio 10 Glucose 160 Calculated osmolality 270 Calcium 8 Albumin 2.7 EXAMINATION: SINGLE VIEW OF THE CHEST 08/26/2017 5:15 pm COMPARISON: 04/09/2017 HISTORY: ORDERING SYSTEM PROVIDED HISTORY: chest pain FINDINGS: Stable cardiomediastinal silhouette. Small left-sided pleural effusion with possible adjacent atelectasis or infiltrate is noted. There is no pneumothorax. The osseous structures are stable. XR/XR chest 1V portable IMPRESSION: Small left-sided pleural effusion with adjacent atelectasis or infiltrate. <Katie Silveira - Last Filed: 09/01/17 20:45> Date of Encounter: 08/30/17 Internal Medicine - H&P: [facility] History of present illness: Mr. Walker is a 52 year old male All Systems PM: A 10-system review of systems was performed and is negative for pertinent findings except as documented above in the HPI. - Constitutional Vitals: Temp Pulse Resp BP Pulse Ox 98.1 F 85 17 147/80 97 09/01/17 19:37 09/01/17 19:37 09/01/17 19:37 09/01/17 19:37 09/01/17 19:37 Internal Med - H&P Results - Labs CBC & Chem 7: 09/01/17 00:34 09/01/17 00:34 Labs: Short CBC 09/01/17 Range/Units 00:34 WBC 1.8 L D (4.3-11.1) K/mcL Hgb 9.1 L (12.9-16.9) g/dL Hct 30.6 L (37.5-50.1) % Plt Count 336 (140-400) K/mcL Neutrophils # 1.3 L (1.6-8.9) K/mcL BMP 09/01/17 00:34 Sodium 131 L Potassium 3.8 Chloride 99 Carbon Dioxide 24 BUN 9 Creatinine 1.08 Glucose 395 H Calcium 7.9 L Liver Function 09/01/17 Range/Units 00:34 Total Bilirubin 0.4 (0.3-1.0) mg/dL AST 14 (13-39) Units/L ALT 19 (7-52) Units/L Alkaline Phosphatase 98 (34-104) Units/L Albumin 2.6 L (3.5-5.7) g/dL - Impressions ITS Impressions Echocardiogram 09/01/17 12:56 Impressions: LVEF 45-50%. Not all LV wall segments are well visualized. Atypical septal motion consistent with post-operative status. Indeterminate diastolic function. RV is dilated with normal function. Mild mitral regurgitation. Mild tricuspid regurgitation. No pulmonary hypertension. Left Ventricular Wall Motion: Rest Echo Findings The apical inferior, mid inferior and basal inferior bowens were hypokinetic. The mid anterior septal and basal anterior septal bowens were dyskinetic. The apex, apical anterior, mid anterior, basal anterior, mid anterior lateral and basal anterior lateral bowens were not visualized. All other wall segments showed normal motion. Findings: Study Quality * Technically adequate exam. ECG Findings * Normal sinus rhythm. Left Ventricle * LVEF 45-50%. * Atypical septal motion consistent with post-operative status. * Indeterminate diastolic function. * Normal LV size and wall thickness. Right Ventricle * RV is dilated with normal function. Left Atrium * Mildly dilated left atrium. Right Atrium * Normal right atrial size. Mitral Valve * No mitral stenosis. * Mild mitral annular calcification * Mild mitral regurgitation. * Mildly calcified mitral valve leaflets. Aortic Valve * No aortic regurgitation. * Aortic valve leaflet morphology not well visualized. * No aortic stenosis. * Sclerotic aortic leaflets. Tricuspid Valve * Tricuspid valve not well visualized. * Mild tricuspid regurgitation. * Estimated RA pressure is 3 mmHg. * Estimated RVSP is 26 mmHg. * No pulmonary hypertension. Pulmonic Valve * Pulmonic valve is not well visualized. * No pulmonic stenosis. * No pulmonic regurgitation. Pulmonary Artery * Pulmonary artery not well visualized. Aorta * Normally sized aortic root. Pericardium * There is no pericardial effusion present. Interatrial Septum * No evidence of PFO by color Doppler. IVC * Normal IVC dimensions and inspiratory collapse. - Attending Attestation I personally and independently interviewed and examined the patient on with the resident. I reviewed the patient's medical record with the resident. I am in agreement with the resident assessment and proposed treatment plan. I have discussed my finding and recommendation with the patient and answer all questions. The agents medical records was admitted to accurately reflect the encounter.
[2017-08-30] MEDS ORDERED: Naloxone 0.4 MG/ML INJ IVP PRN (22:57)
[2017-08-30] MEDS ORDERED: *HR* Dextrose 50 % in Water (Syg) 50 ML SYRINGE IVP PRN (22:59)
[2017-08-30] MEDS ORDERED: D5% in Water 1,000 ML IVC PRN (22:59)
[2017-08-30] MEDS ORDERED: Dextrose Gel 15 GM/37.5 ML TUBE PO PRN ×2 (22:59)
[2017-08-30] MEDS ORDERED: Ondansetron 4 MG/2 ML VIAL IVP PRN (23:44)
[2017-08-30] MEDS ORDERED: Melatonin 3 MG TABLET PO PRN (23:53)
[2017-08-31] MEDS: Gabapentin 400 MG CAPSULE PO SCH ×4 (00:14→20:01)
[2017-08-31] MEDS: *HR* OxyCODONE/APAP 10/325 TABLET PO SCH ×5 (00:14→20:01)
[2017-08-31] MEDS: 0.9 % Sodium Chloride 1,000 ML IVC SCH ×2 (00:15→13:04)
[2017-08-31] MEDS: Aspirin 81 MG TAB.CHEW PO SCH ×2 (00:17→09:22)
[2017-08-31] MEDS: Acetaminophen 325 MG TABLET PO PRN (05:42)
[2017-08-31 05:51] LABS: Hematocrit 26.6 % (37.5-50.1); Mean Corpuscular HGB Conc 30.1 g/dL (31.6-35.5); Mean Corpuscular Hemoglobin 27.7 pg (28.0-33.3); Mean Platelet Volume 8.5 fL (9.4-12.4); Platelet Count 398 K/mcL (140-400); Red Blood Count 2.89 M/mcL (4.19-5.50); Red Cell Distribution Width 17.3 % (11.5-14.5)
[2017-08-31 06:21] LABS: Eosinophils # 0.3 K/mcL (0.0-0.6); Monocytes # 0.8 K/mcL (0.0-1.3); Neutrophils # 2.8 K/mcL (1.6-8.9); Platelet Estimate Normal (Normal)
[2017-08-31 06:30] LABS: Alanine Aminotransferase 22 Units/L (7-52); Albumin 2.5 g/dL (3.5-5.7); Albumin/Globulin Ratio 0.7 (1.1-2.2); Alkaline Phosphatase 92 Units/L (34-104); Aspartate Amino Transferase 22 Units/L (13-39); BUN/Creatinine Ratio 11 (6-26); Bilirubin,Total 0.5 mg/dL (0.3-1.0); Blood Urea Nitrogen 12 mg/dL (6-20); Calcium 8.1 mg/dL (8.6-10.3); Carbon Dioxide 26 mEq/L (23-29); Chloride 97 mEq/L (98-107); Globulin 3.5 g/dL (2.4-3.5); Glucose 143 mg/dL (70-105); Magnesium 1.7 mg/dL (1.6-2.6); Osmolality,Calculated 276 (280-300); Potassium 3.6 mEq/L (3.5-5.1); Sodium 132 mEq/L (136-145); eGFR For African Americans > 60 (> 60); eGFR For Non-African Americans > 60 (> 60)
[2017-08-31] MEDS ORDERED: Furosemide 40 MG TABLET PO SCH (09:00)
[2017-08-31] MEDS: Cholestyramine 4 GM POWD.PACK PO SCH (09:22)
--- NOTE | 2017-08-31 11:30 | Internal Med Progress Note ---
<RomanLeandro - Last Filed: 08/31/17 11:26> Date of Encounter: 08/31/17 Time of Encounter: 10:00 - Assessment and plan (1) Intractable nausea and vomiting Current Visit: Yes Status: Acute Assessment and plan: Most likely secondary to gastroenteritis however severe colitis cannot be ruled out at this point. White blood cell count normal at 4.8. Recommend patient remain NPO. However patient adamantly refused and insists on diet. Patient verbalized understanding of risk including dehydration secondary to continued emesis. - Serial CBC, BMP. - GI consult ordered. - Emesis well controlled with Zofran. - Continue IV fluids Qualifiers: Vomiting type: unspecified Qualified Code(s): R11.2 - Nausea with vomiting , unspecified (2) BRBPR (bright red blood per rectum) Current Visit: Yes Status: Acute Assessment and plan: Patient admits that his last bowel movement displayed bright red blood. Patient admits that he has had this in the past on occasions. Most likely secondary to patient's history of ulcerative colitis. - Ordered H/H for this afternoon and will continue to monitor. Last hemoglobin count was at 8. - GI consult ordered. (3) Inflammatory bowel disease (ulcerative colitis) Current Visit: Yes Status: Acute Assessment and plan: 07/14/17 pancolitis ulcerative colitis. July 2017 Sigmoidoscopy revealed significant inflammation with associated severe congestion, erosions, erythema, friability, granularity and loss of vascularity in the proximal sigmoid and descending colon with associated shallow ulcerations in the rectum to descending colon. Worsened since previous endoscopies.Pt meets criteria for severe colitis, with Hgb < 10.5. Pt has met Dr. Joshua Blanchard at [facility] for consideration of colectomy with Pravin's pouch. Vital signs stable today. Space last hemoglobin count at 8 and white blood cell count 4.8. Continue to monitor vital signs - IV Fluids for hydration - Serial CBC, BMP - Consult to GI. Qualifiers: Ulcerative colitis location: ulcerative pancolitis Digestive disease complication type: with rectal bleeding Qualified Code(s): K51.011 - Ulcerative (chronic) pancolitis with rectal bleeding (4) Diabetes mellitus Current Visit: No Status: Chronic Assessment and plan: Pt allergic to insulin detemir and glargine. Acchuchecks q6h. HgbA1c. Hypoglycemia protocol ordered. Glucose controlled at 143. - A1c lab pending. 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 Full ROM. Continue home medications. Qualifiers: Laterality: bilateral Qualified Code(s): M25.561 - Pain in right knee; M25.562 - Pain in left knee; M25.562 - Pain in left knee; G89.29 - Other chronic pain; G89.29 - Other chronic pain (6) DVT prophylaxis Current Visit: Yes Status: Acute Assessment and plan: Mechanical Prophylaxis with EPCD. - Subjective Interval history: Patient says that he had a bright red blood per rectum with his last bowel movement earlier this morning. He admits to diarrhea. He denies any abdominal pain, nausea, vomiting. Against nuclear medical tech patient continues to request a regular diet and refuses a liquid diet. However patient says she been able to tolerate solid foods. She denies any chest pain, shortness of breath, fever or chills. Denies any dysuria or hematuria. - Constitutional Vitals: Temp Pulse Resp BP Pulse Ox 97.7 F 70 17 127/77 92 08/31/17 07:16 08/31/17 07:16 08/31/17 09:39 08/31/17 07:16 08/31/17 09:39 General appearance: Present: A&O X 3, no acute distress - Respiratory Respiratory exam: Present: CTAB. Absent: accessory muscle use, rales, rhonchi, wheezes - Cardiovascular Cardiovascular exam: Present: RRR, +S1, +S2. Absent: diastolic murmur, gallop, rubs, systolic murmur - GI/Abdominal GI/Abdominal exam: Present: normal bowel sounds, soft, no peritoneal signs. Absent: distended, guarding, rebound, tenderness - Extremities Exam Extremities exam: Present: warm, radial pulses palpable and symmetrical. Absent : calf tenderness, cyanotic, pedal edema Internal Medicine: Result - Labs CBC & Chem 7: 08/31/17 05:18 08/31/17 05:18 Labs: Short CBC 08/31/17 Range/Units 05:18 WBC 4.8 (4.3-11.1) K/mcL Hgb 8.0 L (12.9-16.9) g/dL Hct 26.6 L (37.5-50.1) % Plt Count 398 (140-400) K/mcL Neutrophils # 2.8 (1.6-8.9) K/mcL BMP 08/31/17 05:18 Sodium 132 L Potassium 3.6 Chloride 97 L Carbon Dioxide 26 BUN 12 Creatinine 1.11 Glucose 143 H Calcium 8.1 L Liver Function 08/31/17 Range/Units 05:18 Total Bilirubin 0.5 (0.3-1.0) mg/dL AST 22 (13-39) Units/L ALT 22 (7-52) Units/L Alkaline Phosphatase 92 (34-104) Units/L Albumin 2.5 L (3.5-5.7) g/dL Consult Discharge Plan - Plan Referrals: Micheal Silver MD [Primary Care Provider] - <Terrell Vega - Last Filed: 08/31/17 12:59> Date of Encounter: 08/31/17 - Constitutional Vitals: Temp Pulse Resp BP Pulse Ox 97.5 F L 79 16 106/66 99 08/31/17 11:33 08/31/17 11:33 08/31/17 11:33 08/31/17 11:33 08/31/17 11:33 Internal Medicine: Result - Labs CBC & Chem 7: 08/31/17 12:04 08/31/17 05:18 Labs: Short CBC 08/31/17 08/31/17 Range/Units 05:18 12:04 WBC 4.8 (4.3-11.1) K/mcL Hgb 8.0 L 6.3 L D (12.9-16.9) g/dL Hct 26.6 L 21.1 L (37.5-50.1) % Plt Count 398 (140-400) K/mcL Neutrophils # 2.8 (1.6-8.9) K/mcL BMP 08/31/17 05:18 Sodium 132 L Potassium 3.6 Chloride 97 L Carbon Dioxide 26 BUN 12 Creatinine 1.11 Glucose 143 H Calcium 8.1 L Liver Function 08/31/17 Range/Units 05:18 Total Bilirubin 0.5 (0.3-1.0) mg/dL AST 22 (13-39) Units/L ALT 22 (7-52) Units/L Alkaline Phosphatase 92 (34-104) Units/L Albumin 2.5 L (3.5-5.7) g/dL - Attending Attestation I performed an independent interview and examine this patient. I agree with the findings, assessment, and plan of Dr. Owens, internal medicine corporate legal intern. Patient continues to have bright red blood per rectum but states he is feeling better. He is hungry and asking to eat. He denies any fevers or chills. GI consult was still pending. Patient states he is scheduled for Remicade tomorrow. We will await GI evaluation. If it is infusion may need to get it from [place] where infusion as scheduled. Patient is nontoxic in appearance.
[2017-08-31 12:52] LABS: Hematocrit 21.1 % (37.5-50.1)
[2017-08-31 12:53] LABS: Hemoglobin 6.3 g/dL (12.9-16.9)
[2017-08-31 14:14] LABS: Hematocrit 26.9 % (37.5-50.1)
[2017-08-31] MEDS ORDERED: Pantoprazole 80 MG in 0.9 % Sodium Chloride 50 ML IVPB ONE (14:15)
[2017-08-31] MEDS: Pantoprazole 40 MG in 0.9 % Sodium Chloride Mini Bag 100 ML IVC SCH ×2 (14:37→20:01)
[2017-08-31 14:45] LABS: Hemoglobin 8.1 g/dL (12.9-16.9)
--- NOTE | 2017-08-31 14:58 | Event Note ---
Date of Encounter: 08/31/17 Time of Encounter: 12:55 Patient's hemoglobin dropped from 8 to 6.3. He admitted to a BRBPR earlier this morning. When seen, patient did not appear toxic looking and vitals signs were stable. I ordered 2 U RBCs and put him on protonix drip. I also put him on solu- medrol due to suspected UC flare up. In addition, I also ordered C.Diff labs and stool culture to rule out infectious process. Spoke to Dr. Heath who was air route traffic controller for GI.
[2017-08-31] MEDS ORDERED: 0.9 % Sodium Chloride 250 ML ONE ×2 (15:52→21:04)
[2017-08-31] MEDS: MethylPREDNISolone 40 MG/ML VIAL IVP SCH (16:54)
[2017-09-01] MEDS: Pantoprazole 40 MG in 0.9 % Sodium Chloride Mini Bag 100 ML IVC SCH ×5 (00:04→23:06)
[2017-09-01] MEDS: Acetaminophen 325 MG TABLET PO PRN (00:04)
[2017-09-01] MEDS: tiZANidine 4 MG TABLET PO PRN (00:04)
[2017-09-01 01:20] LABS: Hemoglobin 9.1 g/dL (12.9-16.9)
[2017-09-01 01:22] LABS: Hematocrit 30.6 % (37.5-50.1); Immature Granulocytes % 2.2 % (0-4); Lymphocytes # 0.4 K/mcL (0.6-4.6); Lymphocytes % 22.9 %; Mean Corpuscular HGB Conc 29.7 g/dL (31.6-35.5); Mean Corpuscular Hemoglobin 27.7 pg (28.0-33.3); Mean Corpuscular Volume 93.3 fL (83.0-100.0); Mean Platelet Volume 8.7 fL (9.4-12.4); Monocytes # 0.1 K/mcL (0.0-1.3); Neutrophils # 1.3 K/mcL (1.6-8.9); Nucleated Red Blood Cells 1.7 /100 WBC (0); Platelet Count 336 K/mcL (140-400); Red Blood Count 3.28 M/mcL (4.19-5.50); Red Cell Distribution Width 16.5 % (11.5-14.5); Segmented Neutrophils % 69.9 %
[2017-09-01 01:44] LABS: Alanine Aminotransferase 19 Units/L (7-52); Albumin 2.6 g/dL (3.5-5.7); Albumin/Globulin Ratio 0.8 (1.1-2.2); Alkaline Phosphatase 98 Units/L (34-104); Aspartate Amino Transferase 14 Units/L (13-39); BUN/Creatinine Ratio 8 (6-26); Bilirubin,Total 0.4 mg/dL (0.3-1.0); Blood Urea Nitrogen 9 mg/dL (6-20); Calcium 7.9 mg/dL (8.6-10.3); Carbon Dioxide 24 mEq/L (23-29); Chloride 99 mEq/L (98-107); Globulin 3.2 g/dL (2.4-3.5); Glucose 395 mg/dL (70-105); Osmolality,Calculated 287 (280-300); Potassium 3.8 mEq/L (3.5-5.1); Sodium 131 mEq/L (136-145); Total Protein 5.8 g/dL (6.4-8.9); eGFR For African Americans > 60 (> 60); eGFR For Non-African Americans > 60 (> 60)
[2017-09-01 02:29] LABS: Anisocytosis 1+ (Not Present); Platelet Estimate Normal (Normal)
[2017-09-01] MEDS: MethylPREDNISolone 40 MG/ML VIAL IVP SCH ×2 (05:58→17:29)
[2017-09-01] MEDS: Aspirin 81 MG TAB.CHEW PO SCH (08:53)
[2017-09-01] MEDS: *HR* OxyCODONE/APAP 10/325 TABLET PO SCH ×4 (08:53→23:07)
[2017-09-01] MEDS: Cholestyramine 4 GM POWD.PACK PO SCH (08:53)
[2017-09-01] MEDS: Gabapentin 400 MG CAPSULE PO SCH ×3 (08:54→23:07)
[2017-09-01] MEDS ORDERED: INFLIXIMAB IV SCH (10:15)
--- NOTE | 2017-09-01 10:22 | Internal Med Progress Note ---
<Terrell Vega R - Last Filed: 09/01/17 15:08> Date of Encounter: 09/01/17 - Constitutional Vitals: Temp Pulse Resp BP Pulse Ox 98.3 F 65 17 146/81 97 09/01/17 12:04 09/01/17 12:04 09/01/17 12:04 09/01/17 12:04 09/01/17 12:04 Internal Medicine: Result - Labs CBC & Chem 7: 09/01/17 00:34 09/01/17 00:34 Labs: Short CBC 09/01/17 Range/Units 00:34 WBC 1.8 L D (4.3-11.1) K/mcL Hgb 9.1 L (12.9-16.9) g/dL Hct 30.6 L (37.5-50.1) % Plt Count 336 (140-400) K/mcL Neutrophils # 1.3 L (1.6-8.9) K/mcL BMP 09/01/17 00:34 Sodium 131 L Potassium 3.8 Chloride 99 Carbon Dioxide 24 BUN 9 Creatinine 1.08 Glucose 395 H Calcium 7.9 L Liver Function 09/01/17 Range/Units 00:34 Total Bilirubin 0.4 (0.3-1.0) mg/dL AST 14 (13-39) Units/L ALT 19 (7-52) Units/L Alkaline Phosphatase 98 (34-104) Units/L Albumin 2.6 L (3.5-5.7) g/dL - Impressions Impressions Echocardiogram 09/01/17 12:56 Impressions: LVEF 45-50%. Not all LV wall segments are well visualized. Atypical septal motion consistent with post-operative status. Indeterminate diastolic function. RV is dilated with normal function. Mild mitral regurgitation. Mild tricuspid regurgitation. No pulmonary hypertension. Left Ventricular Wall Motion: Rest Echo Findings The apical inferior, mid inferior and basal inferior bowens were hypokinetic. The mid anterior septal and basal anterior septal bowens were dyskinetic. The apex, apical anterior, mid anterior, basal anterior, mid anterior lateral and basal anterior lateral bowens were not visualized. All other wall segments showed normal motion. Findings: Study Quality * Technically adequate exam. ECG Findings * Normal sinus rhythm. Left Ventricle * LVEF 45-50%. * Atypical septal motion consistent with post-operative status. * Indeterminate diastolic function. * Normal LV size and wall thickness. Right Ventricle * RV is dilated with normal function. Left Atrium * Mildly dilated left atrium. Right Atrium * Normal right atrial size. Mitral Valve * No mitral stenosis. * Mild mitral annular calcification * Mild mitral regurgitation. * Mildly calcified mitral valve leaflets. Aortic Valve * No aortic regurgitation. * Aortic valve leaflet morphology not well visualized. * No aortic stenosis. * Sclerotic aortic leaflets. Tricuspid Valve * Tricuspid valve not well visualized. * Mild tricuspid regurgitation. * Estimated RA pressure is 3 mmHg. * Estimated RVSP is 26 mmHg. * No pulmonary hypertension. Pulmonic Valve * Pulmonic valve is not well visualized. * No pulmonic stenosis. * No pulmonic regurgitation. Pulmonary Artery * Pulmonary artery not well visualized. Aorta * Normally sized aortic root. Pericardium * There is no pericardial effusion present. Interatrial Septum * No evidence of PFO by color Doppler. IVC * Normal IVC dimensions and inspiratory collapse. Consult Discharge Plan - Plan Referrals: Micheal Silver MD [Primary Care Provider] - 09/04/17 1:30 pm - Attending Attestation I performed an independent interview and examine this patient. I agree with the findings, assessment, and plan of Dr. Owens, internal medicine internal control specialist. She was had a drop in his white blood cell count today. Pt continues on on steroids. She reports she feels much better today, and his blood per rectum has resolved. We will remained stable. GI evaluation noted and appreciated, consideration for transfer to [facility]. I did discuss this with the patient and his and we are awaiting final recommendations from gastroenterology. Even his leukopenia, Remicade is held. He was due for a dose this morning. <Leandro Owens - Last Filed: 09/01/17 15:11> Date of Encounter: 09/01/17 Time of Encounter: 08:30 - Assessment and plan (1) Intractable nausea and vomiting Current Visit: Yes Status: Acute Assessment and plan: Secondary to infectious process versus ulcerative colitis flare. Patient able to tolerate solid foods. Denies any nausea or vomiting. - Serial CBC, BMP. - GI consult ordered. - Emesis well controlled with Zofran. - Continue IV fluids - Stool culture and C. difficile labs still pending. Qualifiers: Vomiting type: unspecified Qualified Code(s): R11.2 - Nausea with vomiting , unspecified (2) BRBPR (bright red blood per rectum) Current Visit: Yes Status: Acute Assessment and plan: Patient had a bloody bowel movement yesterday morning. His hemoglobin at the time was at 6.3. He was given 2 units of blood, placed on Protonix drip, and given methylprednisone. Bleeding most likely secondary to ulcerative colitis flareup. Today his hemoglobin is 9.1 and stable. He denies any bloody bowel movements overnight. Blood pressure is normotensive. Patient afebrile. Patient still refuses to be nothing by mouth. (3) Inflammatory bowel disease (ulcerative colitis) Current Visit: Yes Status: Acute Assessment and plan: 07/14/17 pancolitis ulcerative colitis. July 2017 Sigmoidoscopy revealed significant inflammation with associated severe congestion, erosions, erythema, friability, granularity and loss of vascularity in the proximal sigmoid and descending colon with associated shallow ulcerations in the rectum to descending colon. Worsened since previous endoscopies.Pt meets criteria for severe colitis, with Hgb < 10.5. Pt has met Dr. Joshua Blanchard at [facility] for consideration of colectomy with Pravin's pouch. Admitted to bloody bowel movement yesterday morning. Upon checking, his hemoglobin dropped to 6.3. He was given 2 units of blood. He was also put on methylprednisone and protonic strip. GI consult ordered. Today hemoglobin stable at 9.1 patient denies bloody bowel movement overnight. Patient responding well to IV steroids. Continue to monitor vital signs - IV Fluids for hydration - Serial CBC, BMP - Consult to GI. - Hold remicade due to low WBC of 1.8. Update: Per GI: He has been referred to [facility] for colorectal sugeon and IBD, he may need transferred there. Dr Blas to discuss with pt. Qualifiers: Ulcerative colitis location: ulcerative pancolitis Digestive disease complication type: with rectal bleeding Qualified Code(s): K51.011 - Ulcerative (chronic) pancolitis with rectal bleeding (4) Diabetes mellitus Current Visit: No Status: Chronic Assessment and plan: Pt allergic to insulin detemir and glargine (causes minor pruritis). Acchuchecks q6h. HgbA1c. Hypoglycemia protocol ordered. Glucose uncontrolled at 395. - A1c lab pending. - Patient put on low-dose sliding scale insulin and given Benadryl when necessary. Patient agreed to plan. Qualifiers: Diabetes mellitus type: type 2 Diabetes mellitus usp insulin use: without buttermaker continuous churn use Diabetes mellitus complication status: with neurologic complications Diabetes mellitus complication detail: with polyneuropathy Qualified Code(s): E11.42 - Type 2 diabetes mellitus with diabetic polyneuropathy (5) Knee pain, chronic Current Visit: Yes Status: Chronic Assessment and plan: Demonstrates no acute weakness on exam. Full ROM. Continue home medications. Qualifiers: Laterality: bilateral Qualified Code(s): M25.561 - Pain in right knee; M25.562 - Pain in left knee; M25.562 - Pain in left knee; G89.29 - Other chronic pain; G89.29 - Other chronic pain (6) DVT prophylaxis Current Visit: Yes Status: Acute Assessment and plan: Mechanical Prophylaxis with EPCD. - Subjective Interval history: When seen today patient says that he is feeling much better. He denies any overnight bloody bowel movements. He denies any fever, chills, nausea, vomiting , abdominal pain, diarrhea, shortness of breath, or cough. Patient is still able to tolerate solid foods. - Constitutional Vitals: Temp Pulse Resp BP Pulse Ox 97.6 F 64 17 131/77 100 09/01/17 07:51 09/01/17 07:51 09/01/17 07:51 09/01/17 07:51 09/01/17 07:51 General appearance: Present: A&O X 3, no acute distress - Respiratory Respiratory exam: Present: CTAB. Absent: accessory muscle use, rales, rhonchi, wheezes - Cardiovascular Cardiovascular exam: Present: RRR, +S1, +S2, systolic murmur. Absent: diastolic murmur Additional comments: Holosystolic murmur in second intercostal space on left. - GI/Abdominal GI/Abdominal exam: Present: normal bowel sounds, soft, no peritoneal signs. Absent: distended, guarding, rebound, tenderness - Extremities Exam Extremities exam: Present: warm, radial pulses palpable and symmetrical. Absent : calf tenderness, cyanotic, pedal edema Internal Medicine: Result - Labs CBC & Chem 7: 09/01/17 00:34 09/01/17 00:34 Labs: Short CBC 08/31/17 08/31/17 09/01/17 Range/Units 12:04 14:01 00:34 WBC 1.8 L D (4.3-11.1) K/mcL Hgb 6.3 L D 8.1 L D 9.1 L (12.9-16.9) g/dL Hct 21.1 L 26.9 L 30.6 L (37.5-50.1) % Plt Count 336 (140-400) K/mcL Neutrophils # 1.3 L (1.6-8.9) K/mcL BMP 09/01/17 00:34 Sodium 131 L Potassium 3.8 Chloride 99 Carbon Dioxide 24 BUN 9 Creatinine 1.08 Glucose 395 H Calcium 7.9 L Liver Function 09/01/17 Range/Units 00:34 Total Bilirubin 0.4 (0.3-1.0) mg/dL AST 14 (13-39) Units/L ALT 19 (7-52) Units/L Alkaline Phosphatase 98 (34-104) Units/L Albumin 2.6 L (3.5-5.7) g/dL
[2017-09-01 10:52] LABS: Estimated Average Glucose 140 mg/dl; Hemoglobin A1C 6.5 %
[2017-09-01 11:11] LABS: Adenovirus F 40/41 PCR Not detected (Not detect); Astrovirus PCR Not detected (Not detect); C.difficile Toxin A/B by PCR Not detected (Not detect); Campylobacter by PCR Not detected (Not detect); Cryptosporidium by PCR Not detected (Not detect); Cyclospora cayetanensis PCR Not detected (Not detect); E. coli O157 by PCR Not detected (Not detect); Entamoeba histolytica PCR Not detected (Not detect); Enteroaggregative E.coli(EAEC) Not detected (Not detect); Enteropathogenic E.coli(EPEC) Not detected (Not detect); Enterotoxigenic E.coli (ETEC) Not detected (Not detect); Giardia lamblia PCR Not detected (Not detect); Norovirus GI/GII PCR Not detected (Not detect); Plesiomonas shigelloides PCR Not detected (Not detect); Rotavirus A PCR Not detected (Not detect); Salmonella PCR Not detected (Not detect); Sapovirus PCR Not detected (Not detect); Shig/EnteroinvasiveE coli EIEC Not detected (Not detect); Shigalike tox-prod E coli STEC Not detected (Not detect); Vibrio PCR Not detected (Not detect); Vibrio cholerae PCR Not detected (Not detect); Yersinia enterocolitica PCR Not detected (Not detect)
[2017-09-01] MEDS ORDERED: Insulin LISPRO 300 UNITS/3 ML VIAL SQ SCH (12:00)
--- NOTE | 2017-09-01 12:35 | Gastroenterology Consult Note ---
<Lili Gray - Last Filed: 09/01/17 12:31> Date of Encounter: 09/01/17 Time of Encounter: 11:30 - Assessment and plan (1) Inflammatory bowel disease (ulcerative colitis) Current Visit: Yes Status: Acute Assessment and plan: Pt had severe UC on colonoscopy 07/27. He is uncontrolled on remicade and imuran. His WBC has dropped to 1.8, remicade dose for today needs held. He is symptomatically better at this time while on IV steroids. He has been referred to [facility] for colorectal sugeon and IBD, he may need transferred there. Dr Blas to discuss with pt. Qualifiers: Ulcerative colitis location: ulcerative pancolitis Digestive disease complication type: with rectal bleeding Qualified Code(s): K51.011 - Ulcerative (chronic) pancolitis with rectal bleeding (2) BRBPR (bright red blood per rectum) Current Visit: Yes Status: Acute Assessment and plan: Bleeding has stopped. Monitor H&h, transfuse as needed. Colonoscopy was done , will scope again if he has rebleeding. - Time Spent With Patient Total time spent is greater than 50% in coordination of care (as documented) at patient's floor/unit and/or counseling patient: GI History of Present Illness - Data of Consult Patient: known to practice within the last 3 years Consult date: 09/01/17 Requesting Physician: Cj Agosto MD - Consult Narrative Reason for consult: rectal bleed/UC History of present illness: Mr. Walker is a 52 year old male with CAD, DM, HL, and ulcerative colitis. He presented with intractable nausea and green-colored, non bloody emesis x 7 days. Pt is status post 2 vessel CABG in 2016, with resultant complication of wound dehiscence associated with staphylococcal infection necessitating a 3 month course of antibiotics. Shortly after completing his course of antibiotics , he developed inflammatory bowel disease. He reports unable to toerate any food or liquids and was feeling very weak and light headed. He states emesis has stopped. He reports normally 10-12 BMs a day even on remicad and imuran. He states has decreased to 2 BM today after being started on IV steroids this admission. He was recently ordered injectafer for FLEX but has not been started yesterday. He had several episodes of BRBPR yesterday and Hgb dropped to 6.3, was transfused 2 units prbcs and Hgb this am is 9.1. He states normal BM today x 2 and that he feels better than he has in months. He is asking for a diet and when he can go home. Colonoscopy: 07/27 pancolitis ulcerative colitis severe Capsule eddoscopy 04/25 gastroparesis, did not reach cecum EGD 01/23 normal NSAIDS/ASA: asa 81 mg Anticoagulants: Past Med Surg Social Fam HX - Past Medical History Medical history: cardiomyopathy, CHF, coronary artery disease, diabetes, hyperlipidemia, myocardial infarction, other Psychiatric history: depression - Past Surgical History Surgical History: angioplasty/stent, coronary bypass (CABG), herniorrhaphy, orthopedic, other, tracheostomy, vascular surgery, other - Social History Smoking Status: Former smoker Smokeless Tobacco Status: No Alcohol use: none Drug use: none Review of Systems: GI: as per [facility] GENERAL: denies fever or chills EYES: denies yellow discoloration ENT: denies pain with swallowing or difficulty swallowing CARDIO: denies chest pain, palpitations RESP: Shortness of breath with exertion : denies change in color of urine NEURO: weakness HEME: Denies any bruising MS: denies joint pain, joint swelling or back pain. DERM: denies rash or itching PSYCH: history of anxiety or depression - Constitutional Vitals: Temp Pulse Resp BP Pulse Ox 98.3 F 65 17 146/81 97 09/01/17 12:04 09/01/17 12:04 09/01/17 12:04 09/01/17 12:04 09/01/17 12:04 Exam: CONSTITUTIONAL:~alert, no acute distress.~HEAD:~normocephalic.~EYES:~no jaundice.~NECK:~no obvious swelling.~HEART:~regular rate and rhythm, no murmurs , large scar noted to sternal area.~LUNGS:~bilateral good air entry.~ABDOMEN:~ non distended, soft, non tender, no masses palpable, no organomegaly.~RECTAL EXAM:~Deferred.~EXTREMITIES:~no clubbing, cyanosis or edema.~SKIN:~pallor noted , no stigmata of chronic liver disease.~NEUROLOGIC:~no obvious focal defect.~~~~ Results - Labs CBC & Chem 7: 09/01/17 00:34 09/01/17 00:34 Labs: Last Result Calcium 7.9 mg/dL (8.6-10.3) L 09/01/17 00:34 Entire Visit Hgb 9.1 g/dL (12.9-16.9) L 09/01/17 00:34 Hct 30.6 % (37.5-50.1) L 09/01/17 00:34 Total Bilirubin 0.4 mg/dL (0.3-1.0) 09/01/17 00:34 AST 14 Units/L (13-39) 09/01/17 00:34 ALT 19 Units/L (7-52) 09/01/17 00:34 Consult Discharge Plan - Plan Referrals: Micheal Silver MD [Primary Care Provider] - 09/04/17 1:30 pm <Magda Blas - Last Filed: 09/01/17 17:45> Date of Encounter: 09/01/17 Time of Encounter: 14:00 - Time Spent With Patient Total time spent is greater than 50% in coordination of care (as documented) at patient's floor/unit and/or counseling patient: GI History of Present Illness - Data of Consult Requesting Physician: Cj Agosto MD - Consult Narrative History of present illness: Mr. Walker is a 52 year old male - Constitutional Vitals: Temp Pulse Resp BP Pulse Ox 97.9 F 69 17 155/84 98 09/01/17 16:21 09/01/17 16:21 09/01/17 16:21 09/01/17 16:21 09/01/17 16:21 Results - Labs CBC & Chem 7: 09/01/17 00:34 09/01/17 00:34 Labs: Last Result Calcium 7.9 mg/dL (8.6-10.3) L 09/01/17 00:34 Entire Visit Hgb 9.1 g/dL (12.9-16.9) L 09/01/17 00:34 Hct 30.6 % (37.5-50.1) L 09/01/17 00:34 Total Bilirubin 0.4 mg/dL (0.3-1.0) 09/01/17 00:34 AST 14 Units/L (13-39) 09/01/17 00:34 ALT 19 Units/L (7-52) 09/01/17 00:34 - Impressions Impressions Echocardiogram 09/01/17 12:56 Impressions: LVEF 45-50%. Not all LV wall segments are well visualized. Atypical septal motion consistent with post-operative status. Indeterminate diastolic function. RV is dilated with normal function. Mild mitral regurgitation. Mild tricuspid regurgitation. No pulmonary hypertension. Left Ventricular Wall Motion: Rest Echo Findings The apical inferior, mid inferior and basal inferior bowens were hypokinetic. The mid anterior septal and basal anterior septal bowens were dyskinetic. The apex, apical anterior, mid anterior, basal anterior, mid anterior lateral and basal anterior lateral bowens were not visualized. All other wall segments showed normal motion. Findings: Study Quality * Technically adequate exam. ECG Findings * Normal sinus rhythm. Left Ventricle * LVEF 45-50%. * Atypical septal motion consistent with post-operative status. * Indeterminate diastolic function. * Normal LV size and wall thickness. Right Ventricle * RV is dilated with normal function. Left Atrium * Mildly dilated left atrium. Right Atrium * Normal right atrial size. Mitral Valve * No mitral stenosis. * Mild mitral annular calcification * Mild mitral regurgitation. * Mildly calcified mitral valve leaflets. Aortic Valve * No aortic regurgitation. * Aortic valve leaflet morphology not well visualized. * No aortic stenosis. * Sclerotic aortic leaflets. Tricuspid Valve * Tricuspid valve not well visualized. * Mild tricuspid regurgitation. * Estimated RA pressure is 3 mmHg. * Estimated RVSP is 26 mmHg. * No pulmonary hypertension. Pulmonic Valve * Pulmonic valve is not well visualized. * No pulmonic stenosis. * No pulmonic regurgitation. Pulmonary Artery * Pulmonary artery not well visualized. Aorta * Normally sized aortic root. Pericardium * There is no pericardial effusion present. Interatrial Septum * No evidence of PFO by color Doppler. IVC * Normal IVC dimensions and inspiratory collapse. - Attending Attestation I have personally performed a face to face evaluation on this patient. I have reviewed and agree with the care plan. History and Exam by me shows: Patient 51-year-old male with severe ulcerative colitis. Has been on Humira in the past and the also recently on Remicade but not responding to treatment still has a lot of loose stool. currently has been started on steroid and per patient's stools are doing better. Has seen colorectal surgeon at [facility] for possible colectomy because of the refractory nature of the UC to the biological treatment. Leucopenia. Most probably medication induced patient never took Imuran. We will hold Remicade for now until white count is close to 4000
[2017-09-01] MEDS: Insulin LISPRO 300 UNITS/3 ML VIAL SQ SCH ×2 (17:28→23:08)
[2017-09-02] MEDS: MethylPREDNISolone 40 MG/ML VIAL IVP SCH ×2 (04:30→17:31)
[2017-09-02] MEDS: Pantoprazole 40 MG in 0.9 % Sodium Chloride Mini Bag 100 ML IVC SCH ×5 (04:31→21:20)
[2017-09-02] MEDS: *HR* OxyCODONE/APAP 10/325 TABLET PO SCH ×4 (05:33→21:19)
[2017-09-02 06:40] LABS: Alanine Aminotransferase 15 Units/L (7-52); Albumin 2.4 g/dL (3.5-5.7); Albumin/Globulin Ratio 0.7 (1.1-2.2); Alkaline Phosphatase 109 Units/L (34-104); Aspartate Amino Transferase 12 Units/L (13-39); BUN/Creatinine Ratio 9 (6-26); Bilirubin,Total 0.3 mg/dL (0.3-1.0); Blood Urea Nitrogen 7 mg/dL (6-20); Calcium 7.9 mg/dL (8.6-10.3); Carbon Dioxide 24 mEq/L (23-29); Chloride 102 mEq/L (98-107); Globulin 3.3 g/dL (2.4-3.5); Glucose 373 mg/dL (70-105); Osmolality,Calculated 283 (280-300); Potassium 4.2 mEq/L (3.5-5.1); Sodium 130 mEq/L (136-145); Total Protein 5.7 g/dL (6.4-8.9); eGFR For African Americans > 60 (> 60); eGFR For Non-African Americans > 60 (> 60)
[2017-09-02 07:42] LABS: Basophils % 0.2 %; Eosinophils % 0.2 %; Hematocrit 29.9 % (37.5-50.1); Hemoglobin 9.1 g/dL (12.9-16.9); Immature Granulocytes % 1.5 % (0-4); Lymphocytes # 0.6 K/mcL (0.6-4.6); Lymphocytes % 15.6 %; Mean Corpuscular HGB Conc 30.4 g/dL (31.6-35.5); Mean Platelet Volume 8.4 fL (9.4-12.4); Monocytes # 0.3 K/mcL (0.0-1.3); Monocytes % 6.7 %; Neutrophils # 3.1 K/mcL (1.6-8.9); Nucleated Red Blood Cells 0.7 /100 WBC (0); Platelet Count 342 K/mcL (140-400); Red Blood Count 3.25 M/mcL (4.19-5.50); Red Cell Distribution Width 16.6 % (11.5-14.5); Segmented Neutrophils % 75.8 %
[2017-09-02 08:44] LABS: Platelet Estimate Normal (Normal)
[2017-09-02] MEDS: Gabapentin 400 MG CAPSULE PO SCH ×3 (09:41→21:18)
[2017-09-02] MEDS: Cholestyramine 4 GM POWD.PACK PO SCH (09:41)
[2017-09-02] MEDS: Aspirin 81 MG TAB.CHEW PO SCH (09:42)
[2017-09-02] MEDS: Insulin LISPRO 300 UNITS/3 ML VIAL SQ SCH ×4 (09:44→21:19)
[2017-09-02] MEDS: tiZANidine 4 MG TABLET PO PRN ×2 (09:49→21:25)
--- NOTE | 2017-09-02 17:32 | Internal Med Progress Note ---
Date of Encounter: 09/02/17 Time of Encounter: 10:40 - Assessment and plan (1) BRBPR (bright red blood per rectum) Current Visit: Yes Status: Acute Assessment and plan: Patient denies today. Patient admits on admission, has also had this in the past. Likely secondary to patient's history of ulcerative colitis. Patient received a blood transfusion and hemoglobin has remained stable at 9.1 for 2 days. GI has seen patient. Patient had severe ulcerative colitis per colonoscopy on July 27. He is uncontrolled on Remicade and Imuran. White count jumped to 1.8, Remicade was to be held yesterday 09/01. Patient reports relief today, he is on IV steroids. GI has referred patient to [facility] for colorectal surgery, he may need to be transferred there. Dr. Blas was to discuss this with the patient. There is no note for gastroenterology today. We will monitor patient and speak with them tomorrow regarding their plan for further recommendations. (2) Diabetes mellitus Current Visit: Yes Status: Chronic Assessment and plan: Chronic. Well controlled. A1c 6.5%. Continue Accu-Cheks, sliding scale insulin, diabetic diet when able. Qualifiers: Diabetes mellitus type: type 2 Diabetes mellitus superintendent terminal insulin use: without superintendent terminal use Diabetes mellitus complication status: with neurologic complications Diabetes mellitus complication detail: with polyneuropathy Qualified Code(s): E11.42 - Type 2 diabetes mellitus with diabetic polyneuropathy (3) DVT prophylaxis Current Visit: Yes Status: Acute Assessment and plan: SCDs have been ordered, not placed currently. (4) Inflammatory bowel disease (ulcerative colitis) Current Visit: Yes Status: Acute Assessment and plan: Chronic. Patient is on Remicade and Imuran. Symptoms remain uncontrolled. Patient had uncontrolled ulcerative colitis on scope in July,. He is being referred to [facility] for colorectal surgery. We will wait on further recommendations from GI. I appreciate their consultation and recommendations. Patient denies any abdominal pain, nausea, vomiting, or diarrhea today. Continue IV steroids. Continue IV fluid hydration. Qualifiers: Ulcerative colitis location: ulcerative pancolitis Digestive disease complication type: with rectal bleeding Qualified Code(s): K51.011 - Ulcerative (chronic) pancolitis with rectal bleeding (5) Intractable nausea and vomiting Current Visit: Yes Status: Resolved Assessment and plan: Patient denies. Qualifiers: Vomiting type: unspecified Qualified Code(s): R11.2 - Nausea with vomiting , unspecified (6) Knee pain, chronic Current Visit: Yes Status: Chronic Assessment and plan: Patient with chronic bilateral knee pain. Family reports that he has had scopes on both knees in the past. Today, patient reports swelling to left knee without any known new injury. There is no tenderness to palpation and no obvious signs of injury. X-ray has been ordered. Qualifiers: Laterality: bilateral Qualified Code(s): M25.561 - Pain in right knee; M25.562 - Pain in left knee; M25.562 - Pain in left knee; G89.29 - Other chronic pain; G89.29 - Other chronic pain - Time Spent With Patient less than 15 minutes - Subjective Interval history: Patient was seen and assessed at bedside at 10:40 AM. at bedside. She reports left knee pain and swelling with no known injury. Patient does have chronic bilateral knee pain, this is not different. Family has requested an x- ray, which has been ordered. Patient denies continued blood in stool, he states that his abdomen is feeling better. He denies headache, blurred vision, nausea or vomiting, no diarrhea. Abdomen is slightly rounded, he states this is normal for him. She was requesting to go home today, explained due to his hemoglobin and current iron infusion, we would keep him overnight for closer monitoring. I received a message through oncology MOLDING PROCESS TECHNICIAN the patient was to have an iron infusion today at the cancer center. He was already receiving iron sucrose during my evaluation this morning, oncology MOLDING PROCESS TECHNICIAN states he probably did not need any other type of infusion with this. - Constitutional Vitals: Temp Pulse Resp BP Pulse Ox 98.0 F 70 14 133/76 98 09/02/17 15:25 09/02/17 15:25 09/02/17 15:50 09/02/17 15:25 09/02/17 15:50 General appearance: Present: cooperative, A&O X 3, pleasant, no acute distress, answers questions appropriately - Head Head exam: Present: atraumatic, normal inspection, normocephalic - Eye Eye exam: Present: normal appearance, conjuntiva pink, sclera anicteric - Neck Neck exam general surgery: Present: supple, trachea midline - Respiratory Respiratory exam: Present: CTAB. Absent: accessory muscle use, rales, respiratory distress, rhonchi, wheezes - Cardiovascular Cardiovascular exam: Present: RRR, +S1, +S2. Absent: diastolic murmur, gallop, rubs, systolic murmur - GI/Abdominal GI/Abdominal exam: Present: normal bowel sounds, soft, no peritoneal signs. Absent: distended, hepatomegaly, tenderness - Extremities Exam Extremities exam: Present: normal capillary refill, normal inspection, warm, radial pulses palpable and symmetrical. Absent: calf tenderness, cyanotic, pedal edema, tenderness - Neurological Exam Neurological exam: Present: alert, oriented X3, no focal deficits. Absent: facial droop, speech deficit - Skin Skin exam: Present: dry, intact, normal color, warm. Absent: rash Internal Medicine: Result - Labs CBC & Chem 7: 09/02/17 07:30 09/02/17 05:50 Labs: Short CBC 09/02/17 Range/Units 07:30 WBC 4.1 L D (4.3-11.1) K/mcL Hgb 9.1 L (12.9-16.9) g/dL Hct 29.9 L (37.5-50.1) % Plt Count 342 (140-400) K/mcL Neutrophils # 3.1 (1.6-8.9) K/mcL BMP 09/02/17 05:50 Sodium 130 L Potassium 4.2 Chloride 102 Carbon Dioxide 24 BUN 7 Creatinine 0.75 Glucose 373 H Calcium 7.9 L Liver Function 09/02/17 Range/Units 05:50 Total Bilirubin 0.3 (0.3-1.0) mg/dL AST 12 L (13-39) Units/L ALT 15 (7-52) Units/L Alkaline Phosphatase 109 H (34-104) Units/L Albumin 2.4 L (3.5-5.7) g/dL Consult Discharge Plan - Plan Referrals: Micheal Silver MD [Primary Care Provider] - 09/04/17 1:30 pm
[2017-09-02] MEDS ORDERED: Melatonin 3 MG TABLET PO SCH (21:00)
[2017-09-03] MEDS: Acetaminophen 325 MG TABLET PO PRN (03:34)
[2017-09-03] MEDS: Pantoprazole 40 MG in 0.9 % Sodium Chloride Mini Bag 100 ML IVC SCH ×3 (03:35→13:55)
[2017-09-03] MEDS: MethylPREDNISolone 40 MG/ML VIAL IVP SCH (06:00)
[2017-09-03] MEDS: tiZANidine 4 MG TABLET PO PRN (06:07)
[2017-09-03 07:10] LABS: Hematocrit 27.3 % (37.5-50.1); Hemoglobin 8.4 g/dL (12.9-16.9); Mean Corpuscular HGB Conc 30.8 g/dL (31.6-35.5); Mean Corpuscular Hemoglobin 28.2 pg (28.0-33.3); Mean Corpuscular Volume 91.6 fL (83.0-100.0); Mean Platelet Volume 8.6 fL (9.4-12.4); Nucleated Red Blood Cells 0.5 /100 WBC (0); Platelet Count 296 K/mcL (140-400); Red Blood Count 2.98 M/mcL (4.19-5.50); Red Cell Distribution Width 16.9 % (11.5-14.5)
[2017-09-03 07:24] LABS: Alanine Aminotransferase 14 Units/L (7-52); Albumin 2.3 g/dL (3.5-5.7); Albumin/Globulin Ratio 0.7 (1.1-2.2); Alkaline Phosphatase 110 Units/L (34-104); Aspartate Amino Transferase 9 Units/L (13-39); BUN/Creatinine Ratio 16 (6-26); Bilirubin,Total 0.2 mg/dL (0.3-1.0); Blood Urea Nitrogen 11 mg/dL (6-20); Calcium 7.6 mg/dL (8.6-10.3); Carbon Dioxide 22 mEq/L (23-29); Chloride 103 mEq/L (98-107); Globulin 3.1 g/dL (2.4-3.5); Glucose 404 mg/dL (70-105); Osmolality,Calculated 286 (280-300); Potassium 4.9 mEq/L (3.5-5.1); Sodium 130 mEq/L (136-145); Total Protein 5.4 g/dL (6.4-8.9); eGFR For African Americans > 60 (> 60); eGFR For Non-African Americans > 60 (> 60)
[2017-09-03] MEDS: Cholestyramine 4 GM POWD.PACK PO SCH (07:56)
[2017-09-03] MEDS: Aspirin 81 MG TAB.CHEW PO SCH (07:56)
[2017-09-03] MEDS: *HR* OxyCODONE/APAP 10/325 TABLET PO SCH ×2 (07:56→13:55)
[2017-09-03] MEDS: Gabapentin 400 MG CAPSULE PO SCH ×2 (07:56→16:14)
[2017-09-03] MEDS: Insulin LISPRO 300 UNITS/3 ML VIAL SQ SCH ×2 (07:57→12:07)
[2017-09-03 08:48] LABS: Bilirubin,Urine Negative (Negative); Clarity,Urine Clear (Clear); Color,Urine Yellow (Yellow); Glucose,Urine (UA) >=1000 mg/dL (Normal); Ketones,Urine Negative (Negative)
[2017-09-03 08:49] LABS: Blood,Urine Negative (Negative); Leukocyte Esterase,Urine Negative (Negative); Nitrite,Urine Negative (Negative); PH,Urine 6.5 pH Units (5.0-8.0); Protein,Urine Negative (Neg-Trace); Specific Gravity,Urine > 1.030 (1.010-1.025); Urobilinogen,Urine Normal (Normal)
[2017-09-03 08:56] LABS: Lymphocytes # 1.5 K/mcL (0.6-4.6); Monocytes # 0.1 K/mcL (0.0-1.3); Neutrophils # 2.2 K/mcL (1.6-8.9)
[2017-09-03 08:57] LABS: Platelet Estimate Normal (Normal); Toxic Granulation Present (Not Present)
[2017-09-03 09:52] LABS: Hematocrit 27.7 % (37.5-50.1); Hemoglobin 8.8 g/dL (12.9-16.9)
--- NOTE | 2017-09-03 12:31 | Event Note ---
Date of Encounter: 09/03/17 Time of Encounter: 12:[address] Blas. Pt should be sent home on prednisone 20 mg daily x 2 weeks then 10 mg daily, follow up with Dr Blas. OK to restart Remicade. Pt has referral and appointment at [facility], has already seen colorectal surgeon at [facility].
[2017-09-03 15:03] LABS: Hematocrit 29.4 % (37.5-50.1); Hemoglobin 9.3 g/dL (12.9-16.9)
[2017-09-03 15:04] VITALS: BP 133/79
--- NOTE | 2017-09-03 16:22 | Discharge Summary ---
Orders not resulted at time of discharge: Pending orders 09/01/17 09:32 Calprotectin, Fecal Routine 09/03/17 20:15 Hemoglobin and Hematocrit [HEME] Q6H 09/04/17 02:15 Hemoglobin and Hematocrit [HEME] Q6H 09/04/17 04:00 Complete Blood Count [HEME] AM 0400 Comprehensive Metabolic Panel AM 0400 Date of Encounter: 09/03/17 Time of Encounter: 11:15 - Discharge Diagnosis (1) BRBPR (bright red blood per rectum) Priority: Primary Status: Acute Comments: Pt denies again today and hgb has been stable and improving today. Secondary to history of UC. GI has seen pt and recommend that pt be sent home with Prednisone, can restart Remicade, and should follow up with [facility]. (2) Diabetes mellitus Priority: Secondary Status: Chronic Comments: Chronic. Well controlled. A1c 6.5%. Continue home medications. Qualifiers: Diabetes mellitus type: type 2 Diabetes mellitus mcfp insulin use: without mcfp use Diabetes mellitus complication status: with neurologic complications Diabetes mellitus complication detail: with polyneuropathy Qualified Code(s): E11.42 - Type 2 diabetes mellitus with diabetic polyneuropathy (3) DVT prophylaxis Priority: Secondary Status: Acute Comments: SCDs were ordered. (4) Inflammatory bowel disease (ulcerative colitis) Priority: Secondary Status: Acute Comments: Chronic. Patient is on Remicade and Imuran at home prior to admission. Symptoms remain uncontrolled. Patient had uncontrolled ulcerative colitis on scope in July,. He is being referred to [facility]. GI here recommends patient follow up with [facility], prednisone at home, okay to restart Remicade. Patient denies any abdominal pain, nausea, vomiting today. Patient has had a few episodes of loose stool today. Denies bright red bleeding. Qualifiers: Ulcerative colitis location: ulcerative pancolitis Digestive disease complication type: with rectal bleeding Qualified Code(s): K51.011 - Ulcerative (chronic) pancolitis with rectal bleeding (5) Intractable nausea and vomiting Priority: Secondary Status: Resolved Comments: Resolved. Qualifiers: Vomiting type: unspecified Qualified Code(s): R11.2 - Nausea with vomiting , unspecified (6) Knee pain, chronic Priority: Secondary Status: Chronic Comments: Patient reports pain to bilateral knees that is chronic with several invasive procedures. Patient reported increasing pain and swelling to left knee since admission. The x-ray showed soft tissue swelling and edema, as well as prepatellar soft tissue swelling. No acute fracture or dislocation, also noted is a moderate joint effusion. Patient will continue his home dose of the medication, have recommended rest, ice, compression, elevation. Patient was given an Brice wrap prior to discharge. Qualifiers: Laterality: bilateral Qualified Code(s): M25.561 - Pain in right knee; M25.562 - Pain in left knee; M25.562 - Pain in left knee; G89.29 - Other chronic pain; G89.29 - Other chronic pain Hospital course: Mr. Walker is a 52 year old male - Time Spent with Patient Total time spent providing and/or coordinating discharge services: - Discharge Medications Prescriptions: predniSONE [PredniSONE] 10 mg PO DAILY #30 tablet predniSONE [PredniSONE] 20 mg PO DAILY #14 tablet Home Medications: Amitriptyline [Elavil] 50 mg PO HS 02/03/17 [History] Aspirin 81 mg PO DAILY 02/03/17 [History] Canagliflozin [Invokana] 300 mg PO DAILY 02/03/17 [History] Diclofenac Sodium [Voltaren] 1 appl TP QID PRN 02/03/17 [History] Dulaglutide [Trulicity] 1.5 mg SQ CENTENO 02/03/17 [History] Gabapentin [Neurontin] 800 mg PO TID 02/03/17 [History] Oxycodone HCl/Acetaminophen [Percocet 10-325 mg Tablet] 1 tab PO QID 02/03/17 [ History] Promethazine [Phenergan] 25 mg PO Q4H PRN 02/03/17 [History] Tizanidine HCl [Zanaflex] 4 mg PO TID PRN 02/03/17 [History] Fluticasone Propionate Nasal [Flonase] 2 spr NS DAILY #0 06/28/17 [History] Cholestyramine (with Sugar) [Cholestyramine Bulk Powder] 1 scoop PO DAILY [History] Ferrous Sulfate [Iron] 325 mg PO DAILY 07/14/17 [History] Metformin HCl [Glucophage] 1,000 mg PO BID 07/14/17 [History] Doxycycline 100 mg PO BID #20 capsule 08/18/17 [Rx] InFLIXimab [Remicade] 10 mg IV AD 08/18/17 [History] Albuterol Sulfate [Ventolin Hfa] 2 puff IH Q6H 08/29/17 [History] Buspirone HCl [Buspar] 15 mg PO BID 08/29/17 [History] Furosemide [Lasix] 40 mg PO DAILY 08/29/17 [History] Atorvastatin Calcium [Lipitor] 40 mg PO DAILY 08/31/17 [History] predniSONE [PredniSONE] 10 mg PO DAILY #30 tablet 09/03/17 [Rx] predniSONE [PredniSONE] 20 mg PO DAILY #14 tablet 09/03/17 [Rx] Allergies/Adverse Reactions: 3 Allergy/AdvReac Type Severity Reaction Status Date / Time Amoxicillin Allergy Anaphylaxis Verified 09/01/17 11:27 ampicillin Allergy Anaphylaxis Verified 09/01/17 11:27 insulin detemir Allergy Itching Verified 09/01/17 11:27 [From Levemir U-100 Insulin] insulin glargine Allergy Itching Verified 09/01/17 11:27 [From Lantus U-100 Insulin] latex Allergy See Verified 09/01/17 11:27 Comments nitroglycerin Allergy See Verified 09/01/17 11:27 Comments Penicillins [PCN] Allergy Anaphylaxis Verified 09/01/17 11:27 Sulfa (Sulfonamide Allergy See Verified 09/01/17 11:27 Antibiotics) Comments Date of admission: 08/30/17 21:50 Primary care physician: Micheal Silver MD Consults: 08/30/17 23:47 Consult to Gastroenterology [CONS] Routine Consulting Provider: Gastroenterology [facility] Reason for Consult: Intractable N/V, Ulcerative Colitis Call Completed: No Discharging clinician: Hiwot Luna Anticipated date of discharge: 09/03/17 - Constitutional Vitals: Temp Pulse Resp BP Pulse Ox 98.7 F 103 15 133/79 98 09/03/17 15:03 09/03/17 15:03 09/03/17 16:16 09/03/17 15:03 09/03/17 16:16 General appearance: Present: cooperative, A&O X 3, pleasant, no acute distress, answers questions appropriately - Head Head exam: Present: atraumatic, normal inspection, normocephalic - Eye Eye exam: Present: normal appearance, conjuntiva pink, sclera anicteric - Neck Neck exam general surgery: Present: supple, trachea midline. Absent: lymphadenopathy, tenderness - Respiratory Respiratory exam: Present: CTAB. Absent: accessory muscle use, chest wall tenderness, rales, respiratory distress, rhonchi, wheezes - Cardiovascular Cardiovascular exam: Present: RRR, +S1, +S2. Absent: diastolic murmur, gallop, rubs, systolic murmur - GI/Abdominal GI/Abdominal exam: Present: distended, hyperactive bowel sounds, soft, tenderness, no peritoneal signs - Extremities Exam Extremities exam: Present: normal capillary refill, normal inspection, warm, radial pulses palpable and symmetrical. Absent: calf tenderness, cyanotic, pedal edema, tenderness - Neurological Exam Neurological exam: Present: alert, oriented X3, no focal deficits. Absent: facial droop, speech deficit - Skin Skin exam: Present: dry, intact, normal color, warm. Absent: rash - Patient Status Disposition: Home, Self-Care Condition: Fair Functional capacity at discharge: independent ambulation Overall status at discharge: patient is progressing back to baseline - Discharge Instructions Follow Up With: Micheal Silver MD [Primary Care Provider] - 09/04/17 1:30 pm Additional Instructions: Your prescriptions for Prednisone are at [facility] in [place]. Take 20mg tablets every day for 2 weeks, then start on the 10mg tablets. Follow up with [facility] as scheduled. It is ok to restart your Remicade. Return to the ER as needed for any other problems or concerns, or if your symptoms return or worsen. Return to your normal diet and activities as tolerated. Keep the BRICE wrap on your knee and try to rest, apply ice, and elevate as much as you can. Follow up with your PCP for further testing. - Diet and Activity Activity: increase activity as tolerated Diet: advance to your usual diet
== END 2017-09-03 17:45 | disposition home or self-care (01) ==
LOC: 3BNU
PROVIDERS: ADMIT Internal Medicine Hematology & Oncology; ATTEND Internal Medicine

== ENCOUNTER 2020-12-04 14:20 | Observation (INO) ==
[2020-12-04 15:02] LABS: Basophils % 0.5 %; Eosinophils # 0.2 K/mcL (0.0-0.6); Eosinophils % 2.7 %; Hematocrit 45.3 % (37.5-50.1); Hemoglobin 15.2 g/dL (12.9-16.9); Immature Granulocytes % 0.5 % (0-4); Lymphocytes # 0.5 K/mcL (0.6-4.6); Lymphocytes % 8.2 %; Mean Corpuscular HGB Conc 33.6 g/dL (31.6-35.5); Mean Corpuscular Hemoglobin 30.8 pg (28.0-33.3); Mean Corpuscular Volume 91.7 fL (83.0-100.0); Mean Platelet Volume 10.2 fL (9.4-12.4); Monocytes # 0.5 K/mcL (0.0-1.3); Monocytes % 8.3 %; Platelet Count 172 K/mcL (140-400); Red Blood Count 4.94 M/mcL (4.19-5.50); Segmented Neutrophils % 79.8 %; White Blood Count 6.2 K/mcL (4.3-11.1)
[2020-12-04] MEDS ORDERED: Ondansetron 4 MG/2 ML VIAL IVP ONE (15:20)
[2020-12-04] MEDS ORDERED: *HR* HYDROmorphone (PF) 1 MG/ML SYRINGE IVP ONE (15:20)
[2020-12-04 15:21] LABS: BUN/Creatinine Ratio 24 (6-26); Blood Urea Nitrogen 21 mg/dL (6-20); Calcium 9.8 mg/dL (8.6-10.3); Carbon Dioxide 26 mEq/L (23-29); Chloride 101 mEq/L (98-107); Glucose 129 mg/dL (70-105); Osmolality,Calculated 289 (280-300); Potassium 5.3 mEq/L (3.5-5.1); Sodium 137 mEq/L (136-145); eGFR For African Americans > 60 (> 60); eGFR For Non-African Americans > 60 (> 60)
[2020-12-04 15:24] LABS: Bilirubin,Urine Negative (Negative); Blood,Urine Negative (Negative); Clarity,Urine Clear (Clear); Color,Urine Colorless (Yellow); Glucose,Urine (UA) >=1000 mg/dL (Normal); Ketones,Urine Negative (Negative); Leukocyte Esterase,Urine Trace (Negative); Nitrite,Urine Negative (Negative); PH,Urine 5.5 pH Units (5.0-8.0); Protein,Urine Trace mg/dL (Neg-Trace); RBC,Urine 0-3 per hpf (0-3); Specific Gravity,Urine 1.012 (1.010-1.025); Urobilinogen,Urine Normal (Normal)
[2020-12-04] MEDS ORDERED: Aspirin 81 MG TAB.CHEW PO SCH (15:30)
[2020-12-04 17:00] LABS: Troponin I < 0.03 ng/mL (< 0.04)
[2020-12-04] MEDS ORDERED: Ondansetron 4 MG/2 ML VIAL IVP PRN (18:22)
[2020-12-04] MEDS ORDERED: Morphine Sulfate 2 MG/ML SYRINGE IVP PRN (18:22)
[2020-12-04] MEDS ORDERED: D5% in Water 1,000 ML IVC PRN (18:26)
[2020-12-04] MEDS ORDERED: *HR* Dextrose 50 % in Water (Vial) 50 ML VIAL IVP PRN (18:26)
[2020-12-04] MEDS ORDERED: Dextrose Gel 15 GM/37.5 ML TUBE PO PRN ×2 (18:26)
[2020-12-04] MEDS ORDERED: Insulin LISPRO 300 UNITS/3 ML VIAL SUBQ SCH (21:00)
[2020-12-04] MEDS: carvediloL 6.25 MG TABLET PO SCH (21:02)
[2020-12-04] MEDS: *HR* OxyCODONE/APAP 10/325 TABLET PO PRN (21:02)
[2020-12-04] MEDS: tiZANidine 4 MG TABLET PO SCH (21:02)
[2020-12-04] MEDS: Sacubitril/Valsartan 24/26 MG 1 TABLET PO SCH (21:03)
[2020-12-04] MEDS: Gabapentin 400 MG CAPSULE PO SCH (21:03)
[2020-12-05 03:11] LABS: Basophils % 0.3 %; Eosinophils # 0.1 K/mcL (0.0-0.6); Eosinophils % 1.5 %; Hematocrit 38.7 % (37.5-50.1); Immature Granulocytes % 0.2 % (0-4); Lymphocytes # 0.8 K/mcL (0.6-4.6); Lymphocytes % 9.2 %; Mean Corpuscular HGB Conc 33.9 g/dL (31.6-35.5); Mean Corpuscular Volume 91.5 fL (83.0-100.0); Mean Platelet Volume 10.4 fL (9.4-12.4); Monocytes # 0.9 K/mcL (0.0-1.3); Monocytes % 10.2 %; Neutrophils # 7.2 K/mcL (1.6-8.9); Platelet Count 161 K/mcL (140-400); Red Blood Count 4.23 M/mcL (4.19-5.50); Red Cell Distribution Width 14.1 % (11.5-14.5); Segmented Neutrophils % 78.6 %; White Blood Count 9.2 K/mcL (4.3-11.1)
[2020-12-05] MEDS: *HR* OxyCODONE/APAP 10/325 TABLET PO PRN ×2 (03:16→13:18)
[2020-12-05 03:18] LABS: INR 1.1; Prothrombin Time 13.1 Seconds (9.4-12.1)
[2020-12-05 03:20] LABS: Hemoglobin 13.1 g/dL (12.9-16.9)
[2020-12-05 03:37] LABS: Alanine Aminotransferase 12 Units/L (7-52); Albumin 3.9 g/dL (3.5-5.7); Albumin/Globulin Ratio 1.5 (1.1-2.2); Alkaline Phosphatase 87 Units/L (34-104); Aspartate Amino Transferase 14 Units/L (13-39); BUN/Creatinine Ratio 16 (6-26); Blood Urea Nitrogen 18 mg/dL (6-20); Calcium 9.1 mg/dL (8.6-10.3); Carbon Dioxide 26 mEq/L (23-29); Chloride 99 mEq/L (98-107); Globulin 2.6 g/dL (2.4-3.5); Glucose 76 mg/dL (70-105); Magnesium 1.7 mg/dL (1.6-2.6); Osmolality,Calculated 281 (280-300); Potassium 4.3 mEq/L (3.5-5.1); Sodium 135 mEq/L (136-145); Total Protein 6.5 g/dL (6.4-8.9); eGFR For African Americans > 60 (> 60); eGFR For Non-African Americans > 60 (> 60)
[2020-12-05] MEDS ORDERED: Regadenoson 0.4 MG/5 ML SYRINGE IVP ONE ×2 (07:29→07:39)
[2020-12-05] MEDS: Insulin LISPRO 300 UNITS/3 ML VIAL SUBQ SCH ×3 (08:23→15:07)
[2020-12-05] MEDS: Sacubitril/Valsartan 24/26 MG 1 TABLET PO SCH (08:27)
[2020-12-05] MEDS: tiZANidine 4 MG TABLET PO SCH ×2 (08:27→14:05)
[2020-12-05] MEDS: Gabapentin 400 MG CAPSULE PO SCH ×2 (08:27→14:04)
[2020-12-05] MEDS: carvediloL 6.25 MG TABLET PO SCH (08:28)
[2020-12-05] MEDS ORDERED: Aspirin 81 MG TAB.CHEW PO SCH (09:00)
[2020-12-05] MEDS ORDERED: Fluticasone Propionate Nasal 50 MCG/SPRAY BOTTLE NS SCH (09:00)
[2020-12-05] MEDS ORDERED: FLUoxetine 20 MG CAPSULE PO SCH (09:00)
[2020-12-05] MEDS ORDERED: Spironolactone 25 MG TABLET PO SCH (09:00)
[2020-12-05 14:28] VITALS: BP 99/72
== END 2020-12-05 17:40 | disposition home or self-care (01) ==
LOC: EMEROOARM 14:20 → CDU 14:20 → SUATTDRO 17:38 → CDU 18:38
PROVIDERS: ADMIT Internal Medicine; ATTEND Internal Medicine

== ENCOUNTER 2021-01-18 06:53 | Inpatient (IN) ==
[2021-01-18] MEDS ORDERED: Protamine Sulfate 50 MG/5 ML VIAL IVP ONE (07:50)
[2021-01-18] MEDS ORDERED: Bupivacaine-MPF 0.25% 10 ML VIAL ONE (07:50)
[2021-01-18] MEDS ORDERED: Heparin 1,000 UNITS/500 mL 1,500 ML ONE (07:50)
[2021-01-18] MEDS ORDERED: Clindamycin 900 MG/50 ML 900 MG/50 ML IV.SOLN IVPB ONE (08:09)
[2021-01-18] MEDS ORDERED: *HR* OxyCODONE Immed Rel 5 MG TABLET PO PRN (08:12)
[2021-01-18] MEDS ORDERED: Ondansetron 4 MG/2 ML VIAL IVP PRN ×2 (08:12→13:55)
[2021-01-18] MEDS ORDERED: Ringers Solution, Lactated 1,000 ML IVC SCH (08:15)
[2021-01-18] MEDS ORDERED: *HR* Remifentanil 2 MG VIAL IVP ONE (08:56)
[2021-01-18] MEDS ORDERED: EPHEDrine 50 MG/ML VIAL ONE (09:04)
[2021-01-18] MEDS ORDERED: *HR* FentaNYL (PF) 100 MCG/2 ML VIAL ONE (09:05)
[2021-01-18] MEDS ORDERED: Vancomycin 1,000 MG, Sodium Chloride IRRigation 1,000 ML IR ONE (09:15)
[2021-01-18] MEDS ORDERED: Ondansetron 4 MG/2 ML VIAL ONE (09:29)
[2021-01-18] MEDS ORDERED: *HR* Vasopressin 20 UNIT/ML VIAL ONE (09:30)
[2021-01-18] MEDS ORDERED: NiCARdipine 2.5 MG/10 ML Syringe IVPB ONE (09:30)
[2021-01-18] MEDS ORDERED: Albumin Human 5% 0 GM/0 ML IV.SOLN ONE (09:30)
[2021-01-18] MEDS ORDERED: *HR* Etomidate 40 MG/20 ML VIAL IVP ONE (09:44)
[2021-01-18] MEDS ORDERED: Vancomycin 1,250 MG/262.5 ML IV.SOLN IVPB ONE ×2 (10:12→23:00)
[2021-01-18] MEDS ORDERED: Heparin 1,000 UNITS/500 mL 0 ML ONE (11:28)
[2021-01-18] MEDS ORDERED: *HR* Phenylephrine 10 MG/ML VIAL ONE (11:29)
[2021-01-18] MEDS ORDERED: Lidocaine -MPF 2% 2 ML VIAL ONE (11:30)
[2021-01-18] MEDS ORDERED: Vancomycin 1,000 MG VIAL ONE (12:11)
[2021-01-18] MEDS ORDERED: *HR* Dextrose 50 % in Water (Vial) 50 ML VIAL IVP PRN (13:55)
[2021-01-18] MEDS ORDERED: Naloxone 0.4 MG/ML INJ IVP PRN (13:55)
[2021-01-18] MEDS ORDERED: Dextrose Gel 15 GM/37.5 ML TUBE PO PRN ×2 (13:55)
[2021-01-18] MEDS ORDERED: Diclofenac Sodium [Voltaren] 100 GM Gel..Gram. TP PRN (13:55)
[2021-01-18] MEDS ORDERED: 0.9 % Sodium Chloride 1,000 ML IVC SCH (13:55)
[2021-01-18] MEDS ORDERED: *HR* OxyCODONE/APAP 10/325 TABLET PO PRN (13:55)
[2021-01-18] MEDS ORDERED: D5% in Water 1,000 ML IVC PRN (13:55)
[2021-01-18] MEDS ORDERED: *HR* Labetalol 20 MG/4 ML SYRINGE IVP PRN (13:55)
[2021-01-18] MEDS ORDERED: Acetaminophen 325 MG TABLET PO PRN (13:55)
[2021-01-18] MEDS: Insulin LISPRO 300 UNITS/3 ML VIAL SUBQ SCH ×2 (14:34→17:07)
[2021-01-18] MEDS: tiZANidine 4 MG TABLET PO SCH ×2 (14:34→20:29)
[2021-01-18] MEDS: Gabapentin 400 MG CAPSULE PO SCH ×2 (14:34→20:29)
[2021-01-18] MEDS: *HR* Metoprolol 5 MG/5 ML VIAL IVP SCH ×2 (14:41→17:11)
[2021-01-18] MEDS: CeFAZolin 2 GM/120 ML BAG IVPB SCH (17:07)
[2021-01-18] MEDS: *HR* OxyCODONE Immed Rel 5 MG TABLET PO PRN (20:28)
[2021-01-18] MEDS: carvediloL 6.25 MG TABLET PO SCH (20:29)
[2021-01-18] MEDS: Sacubitril/Valsartan 24/26 MG 1 TABLET PO SCH (20:29)
[2021-01-18] MEDS ORDERED: Insulin LISPRO 300 UNITS/3 ML VIAL SUBQ SCH (21:00)
[2021-01-19] MEDS: *HR* Metoprolol 5 MG/5 ML VIAL IVP SCH ×2 (00:29→05:29)
[2021-01-19] MEDS: CeFAZolin 2 GM/120 ML BAG IVPB SCH (02:45)
[2021-01-19] MEDS: *HR* OxyCODONE Immed Rel 5 MG TABLET PO PRN (02:49)
[2021-01-19 04:27] VITALS: O2SAT 92
[2021-01-19 04:34] LABS: Basophils % 0.2 %; Eosinophils % 0.2 %; Hematocrit 38.6 % (37.5-50.1); Hemoglobin 12.4 g/dL (12.9-16.9); Immature Granulocytes % 0.6 % (0-4); Lymphocytes # 0.6 K/mcL (0.6-4.6); Lymphocytes % 7.6 %; Mean Corpuscular HGB Conc 32.1 g/dL (31.6-35.5); Mean Corpuscular Hemoglobin 30.8 pg (28.0-33.3); Mean Platelet Volume 9.7 fL (9.4-12.4); Monocytes # 0.7 K/mcL (0.0-1.3); Monocytes % 7.9 %; Neutrophils # 6.8 K/mcL (1.6-8.9); Platelet Count 150 K/mcL (140-400); Red Blood Count 4.02 M/mcL (4.19-5.50); Red Cell Distribution Width 13.6 % (11.5-14.5); Segmented Neutrophils % 83.5 %; White Blood Count 8.2 K/mcL (4.3-11.1)
[2021-01-19 04:41] LABS: BUN/Creatinine Ratio 14 (6-26); Blood Urea Nitrogen 12 mg/dL (6-20); Calcium 8.8 mg/dL (8.6-10.3); Carbon Dioxide 25 mEq/L (23-29); Chloride 105 mEq/L (98-107); Glucose 148 mg/dL (70-105); Osmolality,Calculated 287 (280-300); Potassium 4.4 mEq/L (3.5-5.1); Sodium 137 mEq/L (136-145); eGFR For African Americans > 60 (> 60); eGFR For Non-African Americans > 60 (> 60)
[2021-01-19] MEDS ORDERED: *HR* Heparin 5,000 UNIT/ML VIAL SQ SCH ×2 (06:00)
[2021-01-19] MEDS: tiZANidine 4 MG TABLET PO SCH (07:25)
[2021-01-19] MEDS: Sacubitril/Valsartan 24/26 MG 1 TABLET PO SCH (07:25)
[2021-01-19] MEDS: Gabapentin 400 MG CAPSULE PO SCH (07:25)
[2021-01-19] MEDS: carvediloL 6.25 MG TABLET PO SCH (07:26)
[2021-01-19 07:37] VITALS: BP 99/61
[2021-01-19] MEDS ORDERED: Spironolactone 25 MG TABLET PO SCH (09:00)
[2021-01-19] MEDS ORDERED: Loratadine 10 MG TABLET PO SCH (09:00)
[2021-01-19] MEDS ORDERED: Aspirin 81 MG TAB.CHEW PO SCH (09:00)
[2021-01-19] MEDS ORDERED: FLUoxetine 20 MG CAPSULE PO SCH (09:00)
[2021-01-19 09:40] VITALS: PULSE 74; TEMP 98.2
[2021-01-19] MEDS: Insulin LISPRO 300 UNITS/3 ML VIAL SUBQ SCH (09:41)
== END 2021-01-19 11:15 | disposition home or self-care (01) | DRG 254 ==
LOC: SAMDAY 06:53 → 2NNU 13:47 → INTOOBSV 13:47 → OBSVTOIN 13:47
PROVIDERS: ADMIT Surgery; ATTEND Surgery